=== PATIENT | female | born 1980 | race Caucasian/White ===

== ENCOUNTER 2017-01-23 16:56 | Emergency (ER) | payer BC ==
[2017-01-23] MEDS ORDERED: SODIUM CHLORIDE 0.9% 1,000 ML IV STA ×2 (17:34)
--- NOTE | 2017-01-23 17:58 | XR ---
EXAMINATION TYPE: XR chest 2V DATE OF EXAM: 01/23/2017 COMPARISON: 01/16/2014 HISTORY: Chest pain TECHNIQUE: Frontal and lateral views of the chest are obtained. FINDINGS: Heart and mediastinum are normal. Lungs are clear. Diaphragm is normal. Bony thorax appear s normal. IMPRESSION: Normal chest. No change.
[2017-01-23 18:01] LABS: Basophils # (A) 0.1 k/uL (0-0.2); Basophils % (A) 1 %; CH 27.5; CHCM 33.3; Eosinophils # (A) 0.2 k/uL (0-0.7); Eosinophils % (A) 2 %; HCT 42.8 % (34.0-46.0); HDW 2.71; HGB 14.2 gm/dL (11.4-16.0); Luc # (Auto) 0.31; Luc % (Auto) 3; Lymphocytes # (A) 2.5 k/uL (1.0-4.8); Lymphocytes % (A) 27 %; MCH 27.5 pg (25.0-35.0); MCHC 33.2 g/dL (31.0-37.0); MCV 82.7 fL (80.0-100.0); Mean Platelet Volume 6.5; Monocytes # (A) 0.6 k/uL (0-1.0); Monocytes % (A) 7 %; Neutrophils # (A) 5.8 k/uL (1.3-7.7); Neutrophils % (A) 61 %; RBC 5.18 m/uL (3.80-5.40); RDW 12.6 % (11.5-15.5); WBC 9.6 k/uL (3.8-10.6); WBC (Perox) 9.55
--- NOTE | 2017-01-23 18:03 | ED ---
Extremity Problem HPI - General Chief complaint: Extremity Problem,Nontraumatic Stated complaint: Knee Pain and SOB Time Seen by Provider: 01/23/17 17:21 Source: patient, RN notes reviewed, old records reviewed Mode of arrival: ambulatory Limitations: no limitations - History of Present Illness Initial comments: This is a 36-year-old female presents emergency Department chief complaint of 3 weeks of right posterior knee pain. She reports that she did break her toe approximately 2 months ago, and has been having limited movement. Patient states that today she has been having shortness of breath whenever she is playing with her 1-year-old child. She is not on control, nonsmoker. She reports no cough or hemoptysis. Patient denies any significant chest pain associated with this. Patient states that she has had no nausea or vomiting denies any abdominal pain. She reports that she whenever she lays backward she has worsening shortness of breath. - Related Data Home Medications Medication Instructions Recorded Confirmed Ibuprofen [Motrin] 400 mg PO Q6HR PRN 01/23/17 01/23/17 Allergies Allergy/AdvReac Type Severity Reaction Status Date / Time morphine Allergy Rash/Hives Verified 01/23/17 18:11 ketamine AdvReac Hallucinati Verified 01/23/17 18:11 ons ketorolac tromethamine AdvReac Nausea & Verified 01/23/17 18:11 [From Toradol] Vomiting Review of Systems ROS Statement: Those systems with pertinent positive or pertinent negative responses have been documented in the HPI. ROS Other: All systems not noted in ROS Statement are negative. Past Medical History Additional Past Medical History / Comment(s): bradycardia, Multiple Sclerosus, POTS. Obstetric history: She has had 3 vaginal deliveries and 2 spontaneous abortions, cholestasis of . O+, abs neg, Rub Imm, RPR NR, Hep B neg. History of Any Multi-Drug Resistant Organisms: None Reported Past Surgical History: Breast Surgery Additional Past Surgical History / Comment(s): D&C, breast implants Past Anesthesia/Blood Transfusion Reactions: No Reported Reaction Past Psychological History: No Psychological Hx Reported Smoking Status: Never smoker Past Alcohol Use History: None Reported Past Drug Use History: None Reported - Past Family History Father Family Medical History: Diabetes Mellitus, Hypertension Additional Family Medical History / Comment(s): had heart attack when 32 Mother Family Medical History: Hypertension General Exam - General Exam Comments Initial Comments: 36-year-old female. Patient appears to be somewhat short of breath. No acute distress. Limitations: no limitations General appearance: alert, in no apparent distress Head exam: Present: atraumatic, normocephalic, normal inspection Eye exam: Present: normal appearance, PERRL, EOMI. Absent: scleral icterus, conjunctival injection, periorbital swelling ENT exam: Present: normal exam, mucous membranes moist Neck exam: Present: normal inspection. Absent: tenderness, meningismus, lymphadenopathy Respiratory exam: Present: normal lung sounds bilaterally, other (Lungs are clear bilaterally, she does complain of some shortness of breath. Denies any chest pain. No tenderness to palpation of the chest wall.). Absent: respiratory distress, wheezes, rales, rhonchi, stridor Cardiovascular Exam: Present: regular rate, normal rhythm, normal heart sounds. Absent: systolic murmur, diastolic murmur, rubs, gallop, clicks GI/Abdominal exam: Present: soft, normal bowel sounds. Absent: distended, tenderness, guarding, rebound, rigid Extremities exam: Present: normal inspection, full ROM, normal capillary refill. Absent: tenderness, pedal edema, joint swelling, calf tenderness Right Upper Leg exam: Present: normal inspection, full ROM Knee exam: Present: full ROM (Patient has full range of motion of the knee, she does have a bruise over the posterior popliteal area.). Absent: normal inspection Lower Leg exam: Present: normal inspection, full ROM Ankle exam: Present: normal inspection, full ROM Foot/Toe exam: Present: normal inspection, full ROM Neurovascular tendon exam: Present: no vascular compromise Gait: observed and limited by pain Course Vital Signs 01/23/17 01/23/17 01/23/17 17:06 17:34 17:47 Temperature 98.9 F Pulse Rate 87 68 Respiratory 18 18 18 Rate Blood Pressure 153/97 127/82 O2 Sat by Pulse 96 99 Oximetry 01/23/17 01/23/17 18:34 20:48 Temperature 97.5 F L 98.0 F Pulse Rate 69 70 Respiratory 16 18 Rate Blood Pressure 135/86 110/72 O2 Sat by Pulse 99 97 Oximetry Medical Decision Making - Medical Decision Making 36-year-old feel presents emergency room chief complaint of shortness of breath for approximately one day. Worse with laying down or exertion. Patient also complains of some right posterior knee pain for the past 2 weeks. Ultrasound of the leg was negative for any DVT. Patient's vital signs are all stable, pulse ox is between 100% 98% on room air. Patient's labwork was reviewed and negative for any significant abnormalities. Negative cardiac enzymes. EKG was normal limits. Patient chest x-rays negative for any acute process. Patient continued to state she is short of breath, CT chest ordered, negative for PE or any other abnormalities. Patient was informed of allresults. She has no wheezing. Discussed at this time emergent reasons for sOB have been rulled out. Return parameters discussed and discussed close follow up with PCP. Discussed with Dr. Owens - Lab Data Result diagrams: 01/23/17 17:40 01/23/17 17:40 Lab Results 01/23/17 01/23/17 01/23/17 Range/Units 17:40 17:40 17:40 WBC 9.6 (3.8-10.6) k/uL RBC 5.18 (3.80-5.40) m/uL Hgb 14.2 (11.4-16.0) gm/dL Hct 42.8 (34.0-46.0) % MCV 82.7 (80.0-100.0) fL MCH 27.5 (25.0-35.0) pg MCHC 33.2 (31.0-37.0) g/dL RDW 12.6 (11.5-15.5) % Plt Count 508 H (150-450) k/uL Neutrophils % 61 % Lymphocytes % 27 % Monocytes % 7 % Eosinophils % 2 % Basophils % 1 % Neutrophils # 5.8 (1.3-7.7) k/uL Lymphocytes # 2.5 (1.0-4.8) k/uL Monocytes # 0.6 (0-1.0) k/uL Eosinophils # 0.2 (0-0.7) k/uL Basophils # 0.1 (0-0.2) k/uL PT (9.0-12.0) sec INR (<1.2) APTT (22.0-30.0) sec D-Dimer (<0.60) mg/L FEU Sodium 140 (137-145) mmol/L Potassium 4.6 (3.5-5.1) mmol/L Chloride 109 H (98-107) mmol/L Carbon Dioxide 21 L (22-30) mmol/L Anion Gap 10 mmol/L BUN 12 (7-17) mg/dL Creatinine 0.57 (0.52-1.04) mg/dL Est GFR (MDRD) Af Amer >60 (>60 ml/min/1.73 sqM) Est GFR (MDRD) Non-Af >60 (>60 ml/min/1.73 sqM) Glucose 100 H (74-99) mg/dL Calcium 9.8 (8.4-10.2) mg/dL Magnesium 2.2 (1.6-2.3) mg/dL Total Bilirubin 0.4 (0.2-1.3) mg/dL AST 21 (14-36) U/L ALT 30 (9-52) U/L Alkaline Phosphatase 101 (38-126) U/L Total Creatine Kinase 87 (30-135) U/L CK-MB (CK-2) 0.8 (0.0-2.4) ng/mL CK-MB (CK-2) Rel Index 0.9 Troponin I <0.012 (0.000-0.034) ng/mL Total Protein 7.6 (6.3-8.2) g/dL Albumin 4.6 (3.5-5.0) g/dL 01/23/17 Range/Units 17:40 WBC (3.8-10.6) k/uL RBC (3.80-5.40) m/uL Hgb (11.4-16.0) gm/dL Hct (34.0-46.0) % MCV (80.0-100.0) fL MCH (25.0-35.0) pg MCHC (31.0-37.0) g/dL RDW (11.5-15.5) % Plt Count (150-450) k/uL Neutrophils % % Lymphocytes % % Monocytes % % Eosinophils % % Basophils % % Neutrophils # (1.3-7.7) k/uL Lymphocytes # (1.0-4.8) k/uL Monocytes # (0-1.0) k/uL Eosinophils # (0-0.7) k/uL Basophils # (0-0.2) k/uL PT 10.3 (9.0-12.0) sec INR 1.0 (<1.2) APTT 25.3 (22.0-30.0) sec D-Dimer 0.22 (<0.60) mg/L FEU Sodium (137-145) mmol/L Potassium (3.5-5.1) mmol/L Chloride (98-107) mmol/L Carbon Dioxide (22-30) mmol/L Anion Gap mmol/L BUN (7-17) mg/dL Creatinine (0.52-1.04) mg/dL Est GFR (MDRD) Af Amer (>60 ml/min/1.73 sqM) Est GFR (MDRD) Non-Af (>60 ml/min/1.73 sqM) Glucose (74-99) mg/dL Calcium (8.4-10.2) mg/dL Magnesium (1.6-2.3) mg/dL Total Bilirubin (0.2-1.3) mg/dL AST (14-36) U/L ALT (9-52) U/L Alkaline Phosphatase (38-126) U/L Total Creatine Kinase (30-135) U/L CK-MB (CK-2) (0.0-2.4) ng/mL CK-MB (CK-2) Rel Index Troponin I (0.000-0.034) ng/mL Total Protein (6.3-8.2) g/dL Albumin (3.5-5.0) g/dL - Radiology Data Radiology results: report reviewed EKG shows normal sinus rhythm with sinus arrhythmia. Incomplete right branch block. Blood sugar at 62 bpm. W[place] interval 120 ms. QRS duration 94 months seconds. QT QTc is 434/440 ms. No evidence of this elevation or T-wave inversions. No ventricular arrhythmias. Disposition Clinical Impression: Dyspnea on exertion, Right knee injury Disposition: HOME SELF-CARE Condition: Good Instructions: Dyspnea (ED) Additional Instructions: Patient advised to follow-up with your primary care provider on Thursday. Patient needs to return if there is any worsening signs or symptoms occur. Patient advised to follow-up with primary care provider as well as client technologies specialist and regards to the knee pain and dyspnea. Referrals: Jodi Linton MD [Primary Care Provider] - 1-2 days Time of Disposition: 20:54
[2017-01-23 18:09] LABS: ALT 30 U/L (9-52); AST 21 U/L (14-36); Alkaline Phosphatase 101 U/L (38-126); Anion Gap 10 mmol/L; Blood Urea Nitrogen 12 mg/dL (7-17); Calcium 9.8 mg/dL (8.4-10.2); Carbon Dioxide 21 mmol/L (22-30); Chloride 109 mmol/L (98-107); Glucose 100 mg/dL (74-99); Magnesium 2.2 mg/dL (1.6-2.3); Non-African American GFR(MDRD) >60 (>60 ml/min/1.73 sqM); Potassium 4.6 mmol/L (3.5-5.1); Sodium 140 mmol/L (137-145); Total Bilirubin 0.4 mg/dL (0.2-1.3); Total Protein 7.6 g/dL (6.3-8.2)
[2017-01-23 18:16] LABS: Partial Thromboplastin Time 25.3 sec (22.0-30.0); Prothrombin Time 10.3 sec (9.0-12.0)
[2017-01-23 18:22] LABS: Creatine Kinase 87 U/L (30-135)
[2017-01-23 18:35] LABS: Creatine Kinase MB 0.8 ng/mL (0.0-2.4); Troponin I <0.012 ng/mL (0.000-0.034)
--- NOTE | 2017-01-23 18:50 | US ---
EXAMINATION TYPE: US venous doppler duplex LE RT DATE OF EXAM: 01/23/2017 5:34 PM COMPARISON: NONE CLINICAL HISTORY: Pain. right leg pain, no swelling, no h/o dvt, SIDE PERFORMED: right TECHNIQUE: The lower extremity deep venous system is examined utilizing real time linear array sonog kenn with graded compression, doppler sonography and color-flow sonography. VESSELS IMAGED: External Iliac Vein (EIV) Common Femoral Vein Deep Femoral Vein Greater Saphenous Vein * Femoral Vein Popliteal Vein Small Saphenous Vein * Proximal Calf Veins (* superficial vessels) Right Leg: Appears negative for DVT IMPRESSION: Normal exam. No evidence of deep venous thrombosis in the right leg.
[2017-01-23] MEDS ORDERED: RX INFO: IV CONTRAST WAS GIVEN 1 EACH MISC MISCELLANE PRN (19:26)
--- NOTE | 2017-01-23 19:42 | XR ---
EXAMINATION TYPE: XR knee complete RT DATE OF EXAM: 01/23/2017 COMPARISON: NONE HISTORY: Knee pain TECHNIQUE: 3 views FINDINGS: I see no fracture nor dislocation. Joint spaces are normal. There is no sign of joint effus ion. IMPRESSION: Negative right knee exam
--- NOTE | 2017-01-23 20:33 | CT ---
EXAMINATION TYPE: CT chest angio for PE DATE OF EXAM: 01/23/2017 COMPARISON: NONE HISTORY: Chest pain and shortness of breath today CT DLP: 640 mGycm Automated exposure control for dose reduction was used. CONTRAST: CT Chest for pulmonary embolism performed with with IV Contrast, patient injected with 100 mL of Omni paque 350. FINDINGS: There are 3-D post processed images. The lungs are clear of infiltrate. There is no evidence of a pul monary mass. There is mild subpleural reticular interstitial density in the posterior right lower lob e. There is no pleural effusion. There is no pericardial effusion. There is mild pectus excavatum chris st deformity. There are bilateral breast implants. There is no mediastinal adenopathy. There are no hilar masses. Thoracic aorta is normal size without evidence of aneurysm or dissection. I see no filling defects in the pulmonary arteries. The bony thorax appears intact. IMPRESSION: Negative exam. No evidence of pulmonary embolism. Minimal subpleural interstitial density in the righ t lower lobe of doubtful significance.
[2017-01-23 20:49] VITALS: BP 110/72; PULSE 70; RESP 18; TEMP 98
== END 2017-01-23 21:06 | disposition home or self-care (01) ==
LOC: EC 16:56
DX: S89.91XA Unspecified injury of right lower leg, initial encounter (principal); R06.02 Shortness of breath; Z88.5 Allergy status to narcotic agent
CPT/HCPCS: 36415; 93005; 85379; 80053; 82550; 82553; 83735; 84484; 85025; 85610; 85730; 71020; 73562; 93971; 71275; 99284; 96360; 96361 ×2; Q9967

== ENCOUNTER 2017-05-04 14:49 | Emergency (ER) | payer OTHER ==
[2017-05-04] MEDS ORDERED: DIPH,PERTUS(ACELL)TETVAC-LF 0.5 ML VIAL IM ONE (16:18)
--- NOTE | 2017-05-04 16:36 | ED ---
Wound/Laceration HPI - General Chief Complaint: Wound/Laceration Stated Complaint: Finger Laceration Time Seen by Provider: 05/04/17 16:12 Source: patient Mode of arrival: ambulatory Limitations: no limitations - History of Present Illness Initial Comments: 37-year-old female patient presents to the emergency department today for evaluation of a laceration to her left fourth finger. Patient states that around noon today she was cutting some vegetables when she slipped and cut the end of her finger. The patient states that she did cleanse the wound and apply ointment however has had continued bleeding throughout the day so she presented here for further evaluation. She states her last tetanus vaccine was 8 years ago. She denies any history of bleeding or clotting disorders. She denies any difficulty with range of motion of the finger. Denies any numbness or tingling. Patient denies any headache, neck pain, back pain, chest pain, shortness of breath, dizziness, weakness, abdominal pain, nausea, vomiting, or difficulties with bowel movements or urination. - Related Data Previous Rx's Medication Instructions Recorded predniSONE 10 mg PO DAILY #74 tab 04/08/17 Baclofen [Lioresal] 10 mg PO QID #120 tab 04/10/17 Gabapentin [Neurontin] 300 mg PO TID #90 cap 04/10/17 Sennosides-Docusate Sodium 2 each PO DAILY tab 04/10/17 [Senokot-S] hydrOXYzine PAMOATE [Vistaril] 25 mg PO TID PRN #60 cap 04/10/17 oxyCODONE-APAP 10-325MG [Percocet 1 each PO Q6H PRN #60 tab 04/10/17 10-325 mg] traMADol HCL [Ultram] 50 mg PO Q6HR PRN #40 tab 04/10/17 Allergies Allergy/AdvReac Type Severity Reaction Status Date / Time morphine Allergy Rash/Hives Verified 05/04/17 15:17 ketamine AdvReac Hallucinati Verified 05/04/17 15:17 ons ketorolac tromethamine AdvReac Nausea & Verified 05/04/17 15:17 [From Toradol] Vomiting paper tape Allergy Rash/Hives Uncoded 05/04/17 15:17 Review of Systems ROS Statement: Those systems with pertinent positive or pertinent negative responses have been documented in the HPI. ROS Other: All systems not noted in ROS Statement are negative. Past Medical History Additional Past Medical History / Comment(s): bradycardia, Multiple Sclerosus,. Obstetric history: She has had 3 vaginal deliveries and 2 spontaneous abortions, cholestasis of . O+, abs neg, Rub Imm, RPR NR, Hep B neg. History of Any Multi-Drug Resistant Organisms: None Reported Past Surgical History: Breast Surgery Additional Past Surgical History / Comment(s): D&C, breast implants Past Anesthesia/Blood Transfusion Reactions: No Reported Reaction Past Psychological History: No Psychological Hx Reported Smoking Status: Never smoker Past Alcohol Use History: Occasional Past Drug Use History: None Reported - Past Family History Father Family Medical History: Diabetes Mellitus, Hypertension Additional Family Medical History / Comment(s): Father is alive at age 66 andhad heart attack when 32 tatus post CABG. Mother Family Medical History: Hypertension Additional Family Medical History / Comment(s): Mother is alive at age 62 with history of gallstones. Brother(s) Additional Family Medical History / Comment(s): Patient has 2 brothers and one sister. Her sister has chronic workup for meningitis-type symptoms. Siblings have not been diagnosed with MS. Patient has 2 children with primary immunodeficiency. General Exam Limitations: no limitations General appearance: alert, in no apparent distress, other (This is a well- developed, well-nourished adult female patient in no acute distress. Vital signs upon presentation are temperature 98.0F, pulse 71, respirations 16, blood pressure 128/74, pulse ox 98% on room air.) Eye exam: Present: normal appearance, PERRL, EOMI. Absent: scleral icterus, conjunctival injection, periorbital swelling ENT exam: Present: normal exam, normal oropharynx, mucous membranes moist Respiratory exam: Present: normal lung sounds bilaterally. Absent: respiratory distress, wheezes, rales, rhonchi, stridor Cardiovascular Exam: Present: regular rate, normal rhythm, normal heart sounds. Absent: systolic murmur, diastolic murmur, rubs, gallop, clicks Extremities exam: Present: normal inspection, full ROM, normal capillary refill , other (There is a 2 cm flap-like laceration noted to the distal tip of the left fourth digit. Bleeding is currently controlled. Full range of motion present. Skin is otherwise pink, warm, and dry. Cap refills less than 3 seconds. Radial pulses 2+ and equal bilaterally.). Absent: tenderness, pedal edema, joint swelling, calf tenderness Neurological exam: Present: alert, oriented X3, CN II-XII intact Psychiatric exam: Present: normal affect, normal mood Skin exam: Present: warm, dry, intact, normal color. Absent: rash Course Vital Signs 05/04/17 15:14 Temperature 98 F Pulse Rate 71 Respiratory 16 Rate Blood Pressure 128/74 O2 Sat by Pulse 98 Oximetry Procedures - Laceration Laceration #1 Consent Obtained: verbal consent Time Out Performed: Yes Indication: laceration Site: hand (Left fourth digit) Size (cm): 2 Description: flap Depth: simple, single layer Anesthetic Used: lidocaine 1% Anesthesia Technique: local infiltration Amount (mls): 2 Pre-repair: irrigated extensively Type of Sutures: nylon Size of Sutures: 5-0 Number of Sutures: 3 Technique: simple, interrupted Patient Tolerated Procedure: well, no complications Medical Decision Making - Medical Decision Making 37-year-old female patient presented to the emergency department today for evaluation of a laceration to left fourth digit. Physical examination did reveal 2 cm flap-like laceration to the left fourth digit. Neurovascular status was intact. Did repair the laceration as documented. She is instructed regarding wound care and suture removal. She is instructed to follow-up with her primary care physician for recheck in 1-2 days for a is instructed to return here immediately for any new, worsening, or concerning symptoms. She verbalizes understanding and agrees with this plan. Disposition Clinical Impression: Finger laceration Disposition: HOME SELF-CARE Condition: Good Instructions: Finger Laceration (ED) Additional Instructions: Keep wound clean and dry. Cleanse twice daily with warm water and antibacterial soap. Return in 7 days to have his stitches removed. Monitor for signs or symptoms of infection including but not limited to swelling, redness, drainage of pus, fever, or chills. Follow-up with your primary care physician for recheck in 1-2 days. Return here immediately for any new, worsening, or concerning symptoms. Referrals: Jodi Linton MD [Primary Care Provider] - 1-2 days Time of Disposition: 16:36
[2017-05-04 16:50] VITALS: BP 118/72; PULSE 67; RESP 17; TEMP 98.1
== END 2017-05-04 16:48 | disposition home or self-care (01) ==
LOC: EC 14:49
DX: S61.215A Laceration without foreign body of left ring finger without damage to nail, initial encounter (principal); Z88.4 Allergy status to anesthetic agent; Z88.5 Allergy status to narcotic agent; Z88.6 Allergy status to analgesic agent; Z91.048 Other nonmedicinal substance allergy status; Z23 Encounter for immunization; W26.9XXA Contact with unspecified sharp object(s), initial encounter; W01.0XXA Fall on same level from slipping, tripping and stumbling without subsequent striking against object, initial encounter; Y93.G1 Activity, food preparation and clean up
CPT/HCPCS: 12001; 90471; 90715; 99282

== ENCOUNTER → 2017-07-06 | Outpatient (CLI) | payer OTHER | END | disposition home or self-care (01) | LOC: LABWHC1 16:16 | PROVIDERS: ATTEND Orthopaedic Surgery | DX: E55.9 Vitamin D deficiency, unspecified (principal) | CPT/HCPCS: 36415; 82306 ==

== ENCOUNTER → 2017-11-17 | Day surgery (SDC) | payer OTHER ==
[2017-11-17 13:44] VITALS: RESP 16; BMI 23.5
[2017-11-17 14:54] VITALS: BP 120/76; PULSE 54; TEMP 98.4
--- NOTE | 2017-11-17 15:50 | USB ---
EXAMINATION TYPE: US breast needle core RT DATE OF EXAM: 11/17/2017 HISTORY: right breast mass. FINDINGS: Maximal barrier technique was utilized. The skin overlying a suitable path to the patient' s mass was localized with ultrasound and the overlying skin prepped and draped. Ultrasound was utili zed with sterile technique. Lidocaine was used for local anesthesia. A skin garry was made with a sc alpel. An 18-gauge needle was advanced under direct ultrasound guidance and core specimen obtained o f the mass. A second pass was made and submitted on wet Telfa. Specimen submitted in formalin to [facility] thology. Following the procedure, hemostasis achieved and the patient is discharged in stable condit ion without complication. IMPRESSION:STATUS POST ULTRASOUND GUIDED CORE BIOPSY OF right breast MASS, PATHOLOGY IS PENDING. THI S PROCEDURE IS PERFORMED BY THE UNDERSIGNED.
== END ==
LOC: RADUSWWP 13:03
PROVIDERS: ATTEND Family Medicine
DX: R92.8 Other abnormal and inconclusive findings on diagnostic imaging of breast (principal); Z88.6 Allergy status to analgesic agent; Z88.4 Allergy status to anesthetic agent; Z88.5 Allergy status to narcotic agent; Z91.09 Other allergy status, other than to drugs and biological substances
CPT/HCPCS: 19083; J2001; 88305

== ENCOUNTER → 2018-08-04 | Outpatient (CLI) | payer OTHER ==
[2018-08-04 14:43] LABS: Basophils # (A) 0.1 k/uL (0-0.2); Basophils % (A) 1 %; Eosinophils # (A) 0.2 k/uL (0-0.7); Eosinophils % (A) 3 %; HCT 41.2 % (34.0-46.0); HGB 12.8 gm/dL (11.4-16.0); Hypochromasia Moderate; Lymphocytes # (A) 2.4 k/uL (1.0-4.8); Lymphocytes % (A) 36 %; MCH 25.6 pg (25.0-35.0); MCHC 31.1 g/dL (31.0-37.0); MCV 82.4 fL (80.0-100.0); Monocytes # (A) 0.5 k/uL (0-1.0); Monocytes % (A) 7 %; Neutrophils # (A) 3.3 k/uL (1.3-7.7); Neutrophils % (A) 50 %; Platelet Count 485 k/uL (150-450); RDW 14.6 % (11.5-15.5); WBC 6.6 k/uL (3.8-10.6)
== END | disposition home or self-care (01) ==
LOC: LABPAT 13:59
PROVIDERS: ATTEND Obstetrics & Gynecology
DX: Z01.812 Encounter for preprocedural laboratory examination (principal); N92.0 Excessive and frequent menstruation with regular cycle
CPT/HCPCS: 36415; 85025

== ENCOUNTER 2018-08-23 06:31 | Day surgery (SDC) | payer OTHER ==
[2018-08-18 14:24] VITALS: BMI 25.0
--- NOTE | 2018-08-20 10:26 | P.HPOB ---
History of Present Illness H&P Date: 08/20/18 Chief Complaint: Menorrhagia and desire for permanent sterility This is a 38 year old 6 para 40-4 woman with heavy menstrual periods with ParaGard IUD in place. Her periods last longer than 7 days and are quite heavy. She desires permanent contraception and is requesting removal of the ParaGard IUD and bilateral tubal ligation. She also is planning to undergo hysteroscopy with NovaSure endometrial ablation to address her menorrhagia. Pelvic ultrasound confirms appropriate placement of ParaGard intrauterine device in the uterus measuring 5.6 x 5.4 x 8.9 cm. Normal bilateral adnexa. Review of Systems Constitutional: Denies chills, Denies fever Cardiovascular: Denies chest pain, Denies shortness of breath Respiratory: Denies cough Gastrointestinal: Denies abdominal pain, Denies BRBPR, Denies nausea, Denies vomiting Genitourinary: Reports menorrhagia Menstruation: Reports menses 8 or > days Integumentary: Denies rash Neurological: Denies headaches Psychiatric: Denies anxiety, Denies depression Hematologic/Lymphatic: Denies easy bleeding, Denies easy bruising Past Medical History Past Medical History: Musculoskeletal Disorder Additional Past Medical History / Comment(s): Bradycardia, Multiple Sclerosis. History of Any Multi-Drug Resistant Organisms: None Reported Past Surgical History: Breast Surgery Additional Past Surgical History / Comment(s): D&C, breast implants. Past Anesthesia/Blood Transfusion Reactions: No Reported Reaction Past Psychological History: Anxiety Smoking Status: Former smoker Past Alcohol Use History: Occasional Additional Past Alcohol Use History / Comment(s): Quit smoking 15 yrs ago. Past Drug Use History: None Reported - Past Family History Father Family Medical History: Diabetes Mellitus, Hypertension Additional Family Medical History / Comment(s): Father is alive at age 66 and had heart attack when 32 status post CABG. Mother Family Medical History: Hypertension Additional Family Medical History / Comment(s): Mother is alive at age 62 with history of gallstones. Brother(s) Family Medical History: No Reported History Additional Family Medical History / Comment(s): Patient has 2 brothers and one sister. Her sister has chronic workup for meningitis-type symptoms. Siblings have not been diagnosed with MS. Patient has 2 children with primary immunodeficiency. Medications and Allergies Home Medications and Allergies Comment(s): ParaGard IUD in place Home Medications Medication Instructions Recorded Confirmed Type Baclofen [Lioresal] 20 mg PO BID 08/18/18 08/18/18 History Vitamin D 25,000 units PO PABLO 08/18/18 08/18/18 History Allergies Allergy/AdvReac Type Severity Reaction Status Date / Time morphine Allergy Rash/Hives Verified 08/18/18 14:11 ketamine AdvReac Hallucinati Verified 08/18/18 14:11 ons ketorolac tromethamine AdvReac Nausea & Verified 08/18/18 14:11 [From Toradol] Vomiting paper tape Allergy Mild Rash/Hives Uncoded 08/18/18 14:11 Exam This is a pleasant female in no obvious distress, appears her stated age. HEENT exam is unremarkable with no palpable lymphadenopathy or thyromegaly. The lungs are clear to auscultation bilaterally and the heart is a regular rate and rhythm. The abdomen is soft and nontender with no rebound, no guarding and no flank pain. On pelvic examination shows normal female external genitalia without lesions or irritation. On speculum examination cervix appears normal with visible IUD strings. On bimanual the uterus feels small freely mobile and in the midline with no palpable adnexal abdomen out East. Neurologically the patient is grossly intact and her mood and affect are appropriate. Assessment and Plan (1) Family planning Status: Acute Code(s): Z30.09 - ENCOUNTER FOR OT GENERAL CNSL AND ADVICE ON CONTRACEPTION SNOMED Code(s): 417364032 (2) Menorrhagia Status: Acute Code(s): N92.0 - EXCESSIVE AND FREQUENT MENSTRUATION WITH REGULAR CYCLE SNOMED Code(s): 339759593 (3) IUD (intrauterine device) in place Status: Acute Code(s): Z97.5 - PRESENCE OF (INTRAUTERINE) CONTRACEPTIVE DEVICE SNOMED Code(s): 815245757 Plan: This is a 38-year-old 6 para 40-4 woman who has menorrhagia with a ParaGard IUD in placed. She and her desire no further pregnancies on and her requesting bilateral tubal ligation as she is not tolerating her IUD at this time. She has menorrhagia. She was therefore scheduled to undergo removal of primary ParaGard IUD, laparoscopic bilateral tubal ligation with Filshie clips, diagnostic hysteroscopy and NovaSure endometrial ablation. The risks, benefits and alternatives to these procedures have been reviewed with the patient. She understands the risks include bleeding, laparotomy, infection, damage to bowel, bladder, ureters and other pelvic and intra-abdominal structures, anesthesia complications, tubal ligation failure, ectopic and ongoing menorrhagia. The patient since he's risks and agrees to proceed. She is scheduled for these procedures on 08/23/2018.
[~2018-08-23 06:31] MED LIST: DEXAMETHASONE SOD PHOSPHATE 10 MG/ML 1 ML VIAL IV ONE; LIDOCAINE 1% 20 ML VIAL (10MG/ML) FOR IV START INTRADERMA PRN; MIDAZOLAM 2 MG/2 ML VIAL IV PRN; ONDANSETRON 4 MG/2 ML VIAL IVP ONE; Pre Op ABX Message 1 EACH MISC MISCELLANE ONE; fentaNYL (PF) 50 MCG/ML 2 ML AMP IV PRN
[2018-08-23] MEDS: LACTATED RINGERS 1,000 ML IV SCH ×2 (07:00→10:18)
[2018-08-23] MEDS ORDERED: GLYCOPYRROLATE 0.2 MG/ML 2 ML VIAL ONE (07:24)
[2018-08-23] MEDS ORDERED: HYDROmorphone (PF) 1 MG/ML ONE (07:24)
[2018-08-23] MEDS ORDERED: MIDAZOLAM 2 MG/2 ML VIAL ONE (07:24)
[2018-08-23] MEDS ORDERED: PROPOFOL 10 MG/ML 20 ML VIAL IV ONE (07:24)
[2018-08-23] MEDS ORDERED: LIDOCAINE 1% INJ 10MG/ML (20 ML MDV) ONE (07:24)
[2018-08-23] MEDS ORDERED: KETOROLAC 30 MG/ML 1 ML VIAL ONE (07:24)
[2018-08-23] MEDS ORDERED: fentaNYL (PF) 50 MCG/ML 2 ML AMP ONE (07:24)
[2018-08-23] MEDS ORDERED: SUCCINYLCHOLINE CHLORIDE 100 MG/5 ML SYR IV ONE (07:24)
[2018-08-23] MEDS ORDERED: BUPIVACAINE (PF) 0.5% 30 ML VIAL SQ ONE (07:53)
--- NOTE | 2018-08-23 08:30 | P.OP ---
Date of Procedure: 08/23/18 Preoperative Diagnosis: Menorrhagia Desires surgical sterility Postoperative Diagnosis: Same Procedure(s) Performed: Removal of ParaGard IUD Laparoscopic bilateral tubal occlusion with Filshie clips Diagnostic hysteroscopy with NovaSure endometrial ablation Anesthesia: ANGELA Surgeon: Sonal Owen Estimated Blood Loss (ml): 10 IV fluids (ml): 600 Urine output (ml): 25 Pathology: none sent Condition: stable Disposition: PACU Operative Findings: Multiparous and patulous cervix. Normal endometrial cavity without gross lesions, fluffy endometrium. Grossly normal pelvic anatomy on laparoscopy with normal-appearing uterus, bilateral fallopian tubes and ovaries. Description of Procedure: After the patient was met in the preoperative holding area and all questions were answered, she was taken to the operating room anesthetic was administered without incident. Appropriate timeout procedure was undertaken. Patient was positioned, prepped and draped in the dorsal lithotomy position. Bladder was drained for approximately 25 mL of clear urine. Speculum was placed in the vagina and cervix was grasped anteriorly with a single-tooth tenaculum. ParaGard IUD strings were visualized. The strings were grasped with a ring forcep and the IUD was removed intact without difficulty. [facility] uterine manipulator was placed. Attention was then turned to the abdomen. Gloves were changed. The patient was placed in low lithotomy. The abdominal wall was grasped and elevated. A 5 mm skin incision at the umbilicus was made with a needle was inserted without difficulty. Saline drop test indicated intraperitoneal placement. Initial filling pressure with CO2 gas was 0 mm. The abdomen was then insufflated to a total filling pressure of 15 mm with CO2 gas. The uterus optical trocar was then utilized to introduce the 5 mm laparoscope. The scope was introduced and intraperitoneal placement was confirmed. The patient was placed in Trendelenburg. Under direct visualization a suprapubic 7 mm port was placed using a blade less trocar. The uterus was then elevated out of the pelvis and the position of both the right and left fallopian tubes were confirmed. The Filshie clip groover and turner was introduced and the right fallopian tube was identified visually and carried out to the fimbriated end. The clip was then applied completely transecting the mid inferior portion of the tube. Similarly the left fallopian tube was visually carried out to the fimbriated end and an additional suture was placed across left fallopian tubes completely transecting the mid ampullary portion. Instruments were then removed from the abdomen and the abdomen was desufflated of CO2 gas. Attention was then turned to the hysteroscopic portion of the procedure. The uterus had been previously sounded to 9 cm. The cervix is noted to be already quite patulous and did not require further dilation to allow for passage of the diagnostic hysteroscope. The hysteroscope was then introduced and a fluffy endometrium was appreciated. No gross intracavitary lesions. Hysteroscope was removed and the NovaSure endometrial excision device was inserted. There is a cavity length of 5 and a width of 4.6 cm. Cavity assessment test was passed after addressing the patulous cervix with Allis clamps to create a tight seal. The device was then enabled for a treatment cycle of 91 seconds at a power of 127 W. Following cessation of the treatment device the hysteroscope was reintroduced and complete desiccation of the endometrium was noted. Instruments removed from the vagina. Gloves were changed and attention was returned to the abdomen where the trochars were removed and skin was closed using 4-0 Vicryl in a subcu cutaneous fashion. Dressings were applied. All counts reported to me as correct by the operating room staff. The patient was awoken from anesthetic and was transferred to recovery in stable condition.
[2018-08-23 08:43] VITALS: TEMP 97.7
[2018-08-23] MEDS: HYDROmorphone 1 MG/ML 1 ML SYRINGE IVP ONE ×4 (08:47→09:23)
[2018-08-23 08:51] VITALS: RESP 16
[2018-08-23] MEDS: MEPERIDINE 50 MG/ML SYRINGE IVP ONE ×2 (08:59→09:12)
[2018-08-23 09:50] VITALS: BP 121/72; PULSE 81
[2018-08-23] MEDS ORDERED: IBUPROFEN 200 MG TAB PO ONE (10:16)
== END 2018-08-23 11:24 | disposition home or self-care (01) ==
LOC: OR 06:31
PROVIDERS: ATTEND Obstetrics & Gynecology
DX: Z30.2 Encounter for sterilization (principal); Z30.432 Encounter for removal of intrauterine contraceptive device; N92.0 Excessive and frequent menstruation with regular cycle; G35 Multiple sclerosis; F41.9 Anxiety disorder, unspecified; Z98.82 Breast implant status; Z79.899 Other long term (current) drug therapy; Z88.6 Allergy status to analgesic agent; Z88.4 Allergy status to anesthetic agent; Z88.5 Allergy status to narcotic agent; Z91.048 Other nonmedicinal substance allergy status; Z87.891 Personal history of nicotine dependence; Z83.3 Family history of diabetes mellitus; Z82.49 Family history of ischemic heart disease and other diseases of the circulatory system; Z83.79 Family history of other diseases of the digestive system; Z83.2 Family history of diseases of the blood and blood-forming organs and certain disorders involving the immune mechanism
CPT/HCPCS: 81025; 58671; 58563; 58301; J2250; J1100; J2175; J2405; J2001; J3010; J1885; J1170; J0330; J2704

== ENCOUNTER → 2018-09-20 | Outpatient (CLI) | payer OTHER ==
--- NOTE | 2018-09-20 13:35 | XR ---
EXAMINATION TYPE: XR hand limited RT DATE OF EXAM: 09/20/2018 CLINICAL HISTORY: pain TECHNIQUE: Frontal, lateral images of the right hand are obtained. COMPARISON: None. FINDINGS: There is no acute fracture/dislocation evident. The joint spaces appear within normal limi ts. The overlying soft tissue appears unremarkable. IMPRESSION: There is no acute fracture or dislocation ICD 10 NO FRACTURE, INITIAL EVALUATION
--- NOTE | 2018-09-20 15:26 | XR ---
EXAMINATION TYPE: XR wrist limited LT DATE OF EXAM: 09/20/2018 CLINICAL HISTORY: pain TECHNIQUE: Frontal, lateral images of the left wrist are obtained. COMPARISON: None. FINDINGS: There is no acute fracture/dislocation evident. The joint spaces appear within normal sykes its. The overlying soft tissue appears unremarkable. IMPRESSION: There is no acute fracture or dislocation seen. ICD 10 NO FRACTURE, INITIAL EVALUATION
== END | disposition home or self-care (01) ==
LOC: RADXRMAIN 13:08
PROVIDERS: ATTEND Family Medicine
DX: M25.532 Pain in left wrist (principal); M79.641 Pain in right hand

== ENCOUNTER 2019-02-10 13:23 | Emergency (ER) | payer OTHER ==
[2019-02-10 13:39] VITALS: BP 148/90; PULSE 70; RESP 20; TEMP 98
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
== END 2019-02-10 15:44 | disposition home or self-care (01) ==
LOC: EC 13:23
DX: T75.89XA Other specified effects of external causes, initial encounter (principal); H57.89 Other specified disorders of eye and adnexa; G35 Multiple sclerosis; Z79.899 Other long term (current) drug therapy; Z88.5 Allergy status to narcotic agent; Z88.4 Allergy status to anesthetic agent; Z88.6 Allergy status to analgesic agent; Z91.048 Other nonmedicinal substance allergy status
CPT/HCPCS: 82375; 99283

== ENCOUNTER → 2019-03-07 | Outpatient (CLI) | payer OTHER ==
[2019-03-07 17:20] LABS: Basophils % (A) 1 %; Eosinophils # (A) 0.1 k/uL (0-0.7); Eosinophils % (A) 3 %; HGB 14.4 gm/dL (11.4-16.0); Lymphocytes # (A) 0.6 k/uL (1.0-4.8); Lymphocytes % (A) 12 %; MCH 28.4 pg (25.0-35.0); MCHC 31.9 g/dL (31.0-37.0); MCV 88.9 fL (80.0-100.0); Mean Platelet Volume 7.2; Monocytes # (A) 0.6 k/uL (0-1.0); Monocytes % (A) 12 %; Neutrophils # (A) 3.6 k/uL (1.3-7.7); Neutrophils % (A) 68 %; Platelet Count 418 k/uL (150-450); RBC 5.06 m/uL (3.80-5.40); RDW 13.8 % (11.5-15.5); WBC 5.2 k/uL (3.8-10.6)
[2019-03-08 02:27] LABS: Albumin 4.5 g/dL (3.80-4.90); Total Bilirubin 0.5 mg/dL (0.3-1.2)
== END | disposition home or self-care (01) ==
LOC: LABWHC1 16:00
PROVIDERS: ATTEND Psychiatry & Neurology Neurology
DX: G35 Multiple sclerosis (principal)
CPT/HCPCS: 36415; 82040; 82247; 84075; 84460; 85025

== ENCOUNTER → 2019-04-21 | Outpatient (CLI) | payer OTHER ==
[2019-04-22 00:51] LABS: African American GFR (CKD) 125.6 (60.0-200.0); Anion Gap 7.9 mmol/L (4.00-12.00); BUN/Creat Ratio 15.71 Ratio (12.00-20.00); Calcium 9.6 mg/dL (8.7-10.3); Carbon Dioxide 28.1 mmol/L (21.6-31.8); Non-African American GFR(CKD) 108.4 (60.0-200.0); Potassium 4.5 mmol/L (3.5-5.5)
== END | disposition home or self-care (01) ==
LOC: LABWHC1 16:07
PROVIDERS: ATTEND Family Medicine
DX: M89.8X9 Other specified disorders of bone, unspecified site (principal); R53.81 Other malaise
CPT/HCPCS: 36415; 80048; 82306; 82550

== ENCOUNTER → 2019-04-26 | Outpatient (CLI) | payer OTHER | END | disposition home or self-care (01) | LOC: LABWHC1 15:59 | PROVIDERS: ATTEND Family Medicine | DX: R53.81 Other malaise (principal) | CPT/HCPCS: 36415; 82550 ==

== ENCOUNTER → 2019-09-13 | Outpatient (CLI) | payer OTHER ==
[2019-09-13 10:55] LABS: Basophils # (A) 0.1 k/uL (0-0.2); Basophils % (A) 1 %; Eosinophils # (A) 0.1 k/uL (0-0.7); Eosinophils % (A) 3 %; HCT 45.5 % (34.0-46.0); HGB 14.4 gm/dL (11.4-16.0); Lymphocytes # (A) 0.6 k/uL (1.0-4.8); Lymphocytes % (A) 12 %; MCH 29.2 pg (25.0-35.0); MCHC 31.6 g/dL (31.0-37.0); MCV 92.4 fL (80.0-100.0); Mean Platelet Volume 7.6; Monocytes # (A) 0.4 k/uL (0-1.0); Monocytes % (A) 9 %; Neutrophils # (A) 3.2 k/uL (1.3-7.7); Neutrophils % (A) 72 %; Platelet Count 423 k/uL (150-450); RBC 4.92 m/uL (3.80-5.40); RDW 12.3 % (11.5-15.5); WBC 4.5 k/uL (3.8-10.6)
[2019-09-13 16:42] LABS: ALT 22 U/L (8-44); AST 24 U/L (13-35); African American GFR (CKD) 125.6 (60.0-200.0); Albumin/Globulin Ratio 2.32 (1.60-3.17); Alkaline Phosphatase 67 U/L (41-126); Bilirubin, Conjugated <0.20 mg/dL (0.20-0.40); Globulin 1.9 g/dL (1.6-3.3); Non-African American GFR(CKD) 108.4 (60.0-200.0); Total Bilirubin 0.4 mg/dL (0.2-1.2); Total Protein 6.3 g/dL (6.2-8.2)
== END | disposition home or self-care (01) ==
LOC: LABWHC1 10:14
PROVIDERS: ATTEND Psychiatry & Neurology Neurology
DX: G35 Multiple sclerosis (principal)
CPT/HCPCS: 36415; 80076; 82565; 82784; 82785; 84520; 85025; 86355; 86357; 86359; 86360

== ENCOUNTER → 2019-11-11 | Outpatient (CLI) | payer OTHER ==
--- NOTE | 2019-11-11 18:42 | US ---
EXAMINATION TYPE: US venous doppler duplex LE LT DATE OF EXAM: 11/11/2019 5:38 PM COMPARISON: NONE CLINICAL HISTORY: I80. PAIN SIDE PERFORMED: Left TECHNIQUE: The lower extremity deep venous system is examined utilizing real time linear array sonog kenn with graded compression, doppler sonography and color-flow sonography. VESSELS IMAGED: External Iliac Vein (EIV) Common Femoral Vein Deep Femoral Vein Greater Saphenous Vein * Femoral Vein Popliteal Vein Small Saphenous Vein * Proximal Calf Veins (* superficial vessels) Left Leg: Negative for DVT Impression No evidence of left leg deep vein thrombosis. IMPRESSION: No deep vein thrombosis in the left leg.
== END | disposition home or self-care (01) ==
LOC: RADUSMAIN 17:20
PROVIDERS: ATTEND Orthopaedic Surgery Sports Medicine
DX: M25.572 Pain in left ankle and joints of left foot (principal); R22.42 Localized swelling, mass and lump, left lower limb; I80.9 Phlebitis and thrombophlebitis of unspecified site

== ENCOUNTER → 2019-12-20 | Outpatient (CLI) | payer OTHER ==
[2019-12-20 17:11] LABS: HCT 44.5 % (34.0-46.0); HGB 14.8 gm/dL (11.4-16.0); MCH 31.4 pg (25.0-35.0); MCHC 33.2 g/dL (31.0-37.0); MCV 94.7 fL (80.0-100.0); Mean Platelet Volume 7.2; Platelet Count 370 k/uL (150-450); RDW 12.2 % (11.5-15.5)
[2019-12-21 00:16] LABS: Erythrocyte Sedimentation Rate 4 mm/Hr (0-20)
[2019-12-21 04:27] LABS: Streptolysin O Ab(ASO) 131 IU/mL (0-200)
[2019-12-21 05:25] LABS: C Reactive Protein <0.4 mg/dL (0.0-0.8); Rheumatoid Factor, Qnt 7 IU/mL (0-15); Uric Acid 3.6 mg/dL (2.9-7.7)
[2019-12-21 14:39] LABS: HLA B27 NEGATIVE
== END | disposition home or self-care (01) ==
LOC: LABWHC1 15:38
PROVIDERS: ATTEND Physician Assistant
DX: M25.572 Pain in left ankle and joints of left foot (principal); R22.42 Localized swelling, mass and lump, left lower limb; M76.62 Achilles tendinitis, left leg; M25.50 Pain in unspecified joint
CPT/HCPCS: 36415; 84443; 84550; 85027; 85652; 86038; 86060; 86140; 86431; 86618; 86812

== ENCOUNTER → 2020-02-09 | Outpatient (CLI) | payer OTHER ==
[2020-02-09 14:30] LABS: Basophils % (A) 1 %; Eosinophils # (A) 0.1 k/uL (0-0.7); Eosinophils % (A) 2 %; HCT 45.5 % (34.0-46.0); HGB 14.7 gm/dL (11.4-16.0); Lymphocytes # (A) 0.5 k/uL (1.0-4.8); Lymphocytes % (A) 12 %; MCH 29.8 pg (25.0-35.0); MCHC 32.2 g/dL (31.0-37.0); MCV 92.3 fL (80.0-100.0); Monocytes # (A) 0.6 k/uL (0-1.0); Monocytes % (A) 13 %; Neutrophils % (A) 69 %; Platelet Count 381 k/uL (150-450); RBC 4.92 m/uL (3.80-5.40); RDW 12.7 % (11.5-15.5); WBC 4.4 k/uL (3.8-10.6)
[2020-02-09 20:03] LABS: ALT 71 U/L (8-44); AST 36 U/L (13-35); Albumin/Globulin Ratio 2.42 (1.60-3.17); Alkaline Phosphatase 88 U/L (41-126); Bilirubin, Conjugated <0.20 mg/dL (0.20-0.40); Globulin 1.9 g/dL (1.6-3.3); Total Bilirubin 0.5 mg/dL (0.2-1.2); Total Protein 6.5 g/dL (6.2-8.2)
[2020-02-10 14:40] LABS: T4/T8 Ratio (CD4:CD8) 0.2 (1.0-3.7)
== END | disposition home or self-care (01) ==
LOC: LABWHC1 13:18
PROVIDERS: ATTEND Psychiatry & Neurology Neurology
DX: G35 Multiple sclerosis (principal)
CPT/HCPCS: 36415; 80076; 85025; 86355; 86357; 86359; 86360

== ENCOUNTER → 2020-05-23 | Outpatient (CLI) | payer OTHER ==
[2020-05-23 19:47] LABS: Basophils # (A) 0.03 X 10*3/uL (0.00-0.10); Eosinophils # (A) 0.09 X 10*3/uL (0.04-0.35); HCT 42.1 % (37.2-46.3); HGB 13.7 g/dL (12.0-15.0); Lymphocytes # (A) 0.33 X 10*3/uL (0.90-5.00); MCHC 32.5 g/dL (32.0-37.0); MCV 92.3 fL (80.0-97.0); Monocytes # (A) 0.53 X 10*3/uL (0.20-1.00); Monocytes % (A) 17.7 %; Platelet Count 406 X 10*3/uL (140-440); RBC 4.56 X 10*6/uL (4.10-5.20); RDW 12.8 % (11.5-14.5); WBC 2.99 X 10*3/uL (4.50-10.00)
[2020-05-24 05:06] LABS: Albumin 4.5 g/dL (3.80-4.90)
[2020-05-24 15:08] LABS: T4/T8 Ratio (CD4:CD8) 0.4 (1.0-3.7)
== END | disposition home or self-care (01) ==
LOC: LABWHC1 12:00
PROVIDERS: ATTEND Psychiatry & Neurology Neurology
DX: G35 Multiple sclerosis (principal); Z88.5 Allergy status to narcotic agent
CPT/HCPCS: 36415; 82040; 84450; 84460; 85025; 86355; 86357; 86359; 86360

== ENCOUNTER → 2020-06-28 | Outpatient (CLI) | payer OTHER ==
[2020-06-28 19:23] LABS: Basophils # (A) 0.03 X 10*3/uL (0.00-0.10); Basophils % (A) 0.8 %; Eosinophils # (A) 0.05 X 10*3/uL (0.04-0.35); Eosinophils % (A) 1.3 %; HCT 46.3 % (37.2-46.3); HGB 14.6 g/dL (12.0-15.0); Lymphocytes # (A) 0.48 X 10*3/uL (0.90-5.00); Lymphocytes % (A) 12.2 %; MCH 29.5 pg (27.0-32.0); MCHC 31.5 g/dL (32.0-37.0); MCV 93.5 fL (80.0-97.0); Monocytes # (A) 0.78 X 10*3/uL (0.20-1.00); Monocytes % (A) 19.8 %; Neutrophils # (A) 2.58 X 10*3/uL (1.80-7.70); Neutrophils % (A) 65.6 %; Platelet Count 383 X 10*3/uL (140-440); RBC 4.95 X 10*6/uL (4.10-5.20); RDW 13.1 % (11.5-14.5); WBC 3.93 X 10*3/uL (4.50-10.00)
== END ==
LOC: LABWHC1 11:25
PROVIDERS: ATTEND Psychiatry & Neurology Neurology
DX: G35 Multiple sclerosis (principal); R42 Dizziness and giddiness
CPT/HCPCS: 36415; 85025

== ENCOUNTER 2020-08-30 16:59 | Emergency (ER) | payer OTHER ==
[2020-08-30] MEDS ORDERED: SODIUM CHLORIDE 0.9% 1,000 ML IV STA (17:23)
[2020-08-30] MEDS ORDERED: KETOROLAC 15 MG/ML 1 ML VIAL IVP STA (17:24)
--- NOTE | 2020-08-30 17:27 | ED ---
SOB HPI - General Chief Complaint: Shortness of Breath Stated Complaint: Covid+/SOB Time Seen by Provider: 08/30/20 17:07 Source: patient, RN notes reviewed Mode of arrival: ambulatory Limitations: no limitations - History of Present Illness Initial Comments: This is a 40-year-old female history of MS a history of recent diagnosis of Covid 19 this is now day 11 who presents with complaints of shortness of breath left-sided sharp chest pain is intermittent and gets as severe as 6 or 7/10 severity. She has a cough but cannot give any phlegm up. She does state that she was diagnosed with right-sided pneumonia from the COVID-19. She denies any current fevers chills or sweats she was recommended to come the hospital by her doctor. She is on immunosuppressants for her MS and thinks this may be why she had Covid in spite of immunization. No other complaints she states she has taken Toradol in the past but only oral and get her an upset stomach no prior history of IV Toradol problems MD Complaint: shortness of breath, chest pain - Related Data Home Medications Medication Instructions Recorded Confirmed Ascorbic Acid [Vitamin C] 500 mg PO DAILY 08/30/20 08/30/20 Ergocalciferol [Vitamin D2 (1250 1,250 mcg PO TH 08/30/20 08/30/20 Mcg = 84842 Iu)] Fingolimod HCl [Gilenya] 0.5 mg PO DAILY 08/30/20 08/30/20 Ibuprofen [Motrin Ib] 400 mg PO Q8H PRN 08/30/20 08/30/20 Zinc 50 mg PO DAILY 08/30/20 08/30/20 clonazePAM [KlonoPIN] 0.5 mg PO HS PRN 08/30/20 08/30/20 modafiniL [Provigil] 100 mg PO DAILY 08/30/20 08/30/20 Previous Rx's Medication Instructions Recorded predniSONE [Deltasone] 20 mg PO BID #10 tab 08/30/20 Allergies Allergy/AdvReac Type Severity Reaction Status Date / Time morphine Allergy Rash/Hives Verified 08/30/20 18:38 ketamine AdvReac Hallucinati Verified 08/30/20 18:38 ons ketorolac tromethamine AdvReac Nausea & Verified 08/30/20 18:38 [From Toradol] Vomiting paper tape Allergy Mild Rash/Hives Uncoded 08/30/20 17:03 Review of Systems ROS Statement: Those systems with pertinent positive or pertinent negative responses have been documented in the HPI. ROS Other: All systems not noted in ROS Statement are negative. Past Medical History Past Medical History: Musculoskeletal Disorder Additional Past Medical History / Comment(s): bradycardia, Multiple Sclerosis. Obstetric history: She has had 3 vaginal deliveries and 2 spontaneous abortions, cholestasis of . O+, abs neg, Rub Imm, RPR NR, Hep B neg. History of Any Multi-Drug Resistant Organisms: None Reported Past Surgical History: Tubal Ligation, Uterine Ablation Additional Past Surgical History / Comment(s): D&C, breast implants, Past Anesthesia/Blood Transfusion Reactions: No Reported Reaction Past Psychological History: Anxiety Smoking Status: Never smoker Past Alcohol Use History: Rare Past Drug Use History: None Reported - Past Family History Father Family Medical History: Diabetes Mellitus, Hypertension Additional Family Medical History / Comment(s): Father is alive at age 66 and had heart attack when 32 status post CABG. Mother Family Medical History: Hypertension Additional Family Medical History / Comment(s): Mother is alive at age 62 with history of gallstones. Brother(s) Family Medical History: No Reported History Additional Family Medical History / Comment(s): Patient has 2 brothers and one sister. Her sister has chronic workup for meningitis-type symptoms. Siblings have not been diagnosed with MS. Patient has 2 children with primary immunodeficiency. General Exam - General Exam Comments Initial Comments: This is a well-developed well-nourished awake alert oriented 3 female Limitations: no limitations General appearance: alert, in no apparent distress Head exam: Present: atraumatic, normocephalic, normal inspection Eye exam: Present: normal appearance, PERRL, EOMI. Absent: scleral icterus, conjunctival injection, periorbital swelling ENT exam: Present: normal exam, mucous membranes moist Neck exam: Present: normal inspection. Absent: tenderness, meningismus, lymphadenopathy Respiratory exam: Present: normal lung sounds bilaterally. Absent: respiratory distress, wheezes, rales, rhonchi, stridor, chest wall tenderness Cardiovascular Exam: Present: regular rate, normal rhythm, normal heart sounds. Absent: systolic murmur, diastolic murmur, rubs, gallop, clicks GI/Abdominal exam: Present: soft, normal bowel sounds. Absent: distended, tenderness, guarding, rebound, rigid Extremities exam: Present: normal inspection, full ROM, normal capillary refill. Absent: tenderness, pedal edema, joint swelling, calf tenderness Back exam: Present: normal inspection Neurological exam: Present: alert, oriented X3, CN II-XII intact Psychiatric exam: Present: normal affect, normal mood Skin exam: Present: warm, dry, intact, normal color. Absent: rash Course Vital Signs 08/30/20 08/30/20 08/30/20 17:01 17:21 19:14 Temperature 98.4 F Pulse Rate 75 65 50 L Respiratory 20 22 16 Rate Blood Pressure 161/90 140/103 156/93 O2 Sat by Pulse 100 100 100 Oximetry Medical Decision Making - Medical Decision Making I did discuss the findings with the patient she is feeling improved after the medication was rendered. I long discussion with her regarding her MS she feels as if the symptoms are not related to MS she was offered admission and would rather go home at this time. She'll be discharged home with a steroid to be given orally for pain. The presentation consistent with pleuritis. - Lab Data Result diagrams: 08/30/20 17:38 08/30/20 17:38 Lab Results 08/30/20 08/30/20 08/30/20 Range/Units 17:38 17:38 17:38 WBC 2.6 L (3.8-10.6) k/uL RBC 4.99 (3.80-5.40) m/uL Hgb 14.5 (11.4-16.0) gm/dL Hct 43.1 (34.0-46.0) % MCV 86.3 (80.0-100.0) fL MCH 29.1 (25.0-35.0) pg MCHC 33.7 (31.0-37.0) g/dL RDW 12.5 (11.5-15.5) % Plt Count 334 (150-450) k/uL MPV 7.2 Neutrophils % 69 % Lymphocytes % 11 % Monocytes % 16 % Eosinophils % 1 % Basophils % 1 % Neutrophils # 1.8 (1.3-7.7) k/uL Lymphocytes # 0.3 L (1.0-4.8) k/uL Monocytes # 0.4 (0-1.0) k/uL Eosinophils # 0.0 (0-0.7) k/uL Basophils # 0.0 (0-0.2) k/uL PT 10.5 (9.0-12.0) sec INR 1.0 (<1.2) APTT 24.6 (22.0-30.0) sec D-Dimer <0.17 (<0.60) mg/L FEU Sodium 139 (137-145) mmol/L Potassium 4.0 (3.5-5.1) mmol/L Chloride 106 (98-107) mmol/L Carbon Dioxide 26 (22-30) mmol/L Anion Gap 7 mmol/L BUN 16 (7-17) mg/dL Creatinine 0.47 L (0.52-1.04) mg/dL Est GFR (CKD-EPI)AfAm >90 (>60 ml/min/1.73 sqM) Est GFR (CKD-EPI)NonAf >90 (>60 ml/min/1.73 sqM) Glucose 89 (74-99) mg/dL Plasma Lactic Acid Yayo (0.7-2.0) mmol/L Calcium 9.7 (8.4-10.2) mg/dL Magnesium 2.1 (1.6-2.3) mg/dL Total Bilirubin 0.4 (0.2-1.3) mg/dL AST 35 (14-36) U/L ALT 44 H (4-34) U/L Alkaline Phosphatase 94 (38-126) U/L Creatine Kinase 51 (30-135) U/L Troponin I (0.000-0.034) ng/mL NT-Pro-B Natriuret Pep pg/mL Total Protein 6.6 (6.3-8.2) g/dL Albumin 4.2 (3.5-5.0) g/dL 08/30/20 08/30/20 08/30/20 Range/Units 17:38 17:38 17:38 WBC (3.8-10.6) k/uL RBC (3.80-5.40) m/uL Hgb (11.4-16.0) gm/dL Hct (34.0-46.0) % MCV (80.0-100.0) fL MCH (25.0-35.0) pg MCHC (31.0-37.0) g/dL RDW (11.5-15.5) % Plt Count (150-450) k/uL MPV Neutrophils % % Lymphocytes % % Monocytes % % Eosinophils % % Basophils % % Neutrophils # (1.3-7.7) k/uL Lymphocytes # (1.0-4.8) k/uL Monocytes # (0-1.0) k/uL Eosinophils # (0-0.7) k/uL Basophils # (0-0.2) k/uL PT (9.0-12.0) sec INR (<1.2) APTT (22.0-30.0) sec D-Dimer (<0.60) mg/L FEU Sodium (137-145) mmol/L Potassium (3.5-5.1) mmol/L Chloride (98-107) mmol/L Carbon Dioxide (22-30) mmol/L Anion Gap mmol/L BUN (7-17) mg/dL Creatinine (0.52-1.04) mg/dL Est GFR (CKD-EPI)AfAm (>60 ml/min/1.73 sqM) Est GFR (CKD-EPI)NonAf (>60 ml/min/1.73 sqM) Glucose (74-99) mg/dL Plasma Lactic Acid Yayo 0.6 L (0.7-2.0) mmol/L Calcium (8.4-10.2) mg/dL Magnesium (1.6-2.3) mg/dL Total Bilirubin (0.2-1.3) mg/dL AST (14-36) U/L ALT (4-34) U/L Alkaline Phosphatase (38-126) U/L Creatine Kinase (30-135) U/L Troponin I <0.012 (0.000-0.034) ng/mL NT-Pro-B Natriuret Pep 86 pg/mL Total Protein (6.3-8.2) g/dL Albumin (3.5-5.0) g/dL - EKG Data -: EKG Interpreted by Or EKG Comments: Sinus bradycardia rate 55 NV interval 148 QRS 100 QT/QTC 440/420 left exodeviation incomplete right bundle-branch block - Radiology Data Radiology results: report reviewed (She reviewed no acute findings.), image reviewed Disposition Clinical Impression: Atypical chest pain, Pleurisy Disposition: HOME SELF-CARE Condition: Good Instructions (If sedation given, give patient instructions): Pleurisy (ED) Prescriptions: predniSONE [Deltasone] 20 mg PO BID #10 tab Is patient prescribed a controlled substance at d/c from ED?: No Referrals: Kacie Matthews MD [Primary Care Provider] - 1-2 days
[2020-08-30 17:46] LABS: Basophils % (A) 1 %; Eosinophils % (A) 1 %; HCT 43.1 % (34.0-46.0); HGB 14.5 gm/dL (11.4-16.0); Lymphocytes # (A) 0.3 k/uL (1.0-4.8); Lymphocytes % (A) 11 %; MCH 29.1 pg (25.0-35.0); MCHC 33.7 g/dL (31.0-37.0); MCV 86.3 fL (80.0-100.0); Mean Platelet Volume 7.2; Monocytes # (A) 0.4 k/uL (0-1.0); Monocytes % (A) 16 %; Neutrophils # (A) 1.8 k/uL (1.3-7.7); Neutrophils % (A) 69 %; Platelet Count 334 k/uL (150-450); RBC 4.99 m/uL (3.80-5.40); RDW 12.5 % (11.5-15.5); WBC 2.6 k/uL (3.8-10.6)
[2020-08-30 17:54] LABS: ALT 44 U/L (4-34); AST 35 U/L (14-36); African American GFR (CKD) >90 (>60 ml/min/1.73 sqM); Albumin 4.2 g/dL (3.5-5.0); Alkaline Phosphatase 94 U/L (38-126); Anion Gap 7 mmol/L; Blood Urea Nitrogen 16 mg/dL (7-17); Calcium 9.7 mg/dL (8.4-10.2); Carbon Dioxide 26 mmol/L (22-30); Chloride 106 mmol/L (98-107); Creatine Kinase 51 U/L (30-135); Glucose 89 mg/dL (74-99); Magnesium 2.1 mg/dL (1.6-2.3); Non-African American GFR(CKD) >90 (>60 ml/min/1.73 sqM); Sodium 139 mmol/L (137-145); Total Bilirubin 0.4 mg/dL (0.2-1.3); Total Protein 6.6 g/dL (6.3-8.2)
[2020-08-30 17:59] LABS: D-Dimer <0.17 mg/L FEU (<0.60); Partial Thromboplastin Time 24.6 sec (22.0-30.0); Prothrombin Time 10.5 sec (9.0-12.0)
--- NOTE | 2020-08-30 18:20 | XR ---
EXAMINATION TYPE: XR chest 2V DATE OF EXAM: 08/30/2020 COMPARISON: 01/23/2017 HISTORY: Chest pain TECHNIQUE: Frontal and lateral views of the chest are obtained. FINDINGS: There is no focal air space opacity. No evidence for pneumothorax. No pleural effusion. The cardiac silhouette size is within normal limits. The osseous structures are grossly intact. IMPRESSION: 1. No acute cardiopulmonary process.
[2020-08-30] MEDS ORDERED: methylPREDNISolone SOD SUCCI 125 MG/2 ML VIAL IV STA (19:14)
[2020-08-30] MEDS ORDERED: fentaNYL (PF) 50 MCG/ML 2 ML AMP IV STA (19:15)
[2020-08-30 21:01] VITALS: BP 150/101; PULSE 58; RESP 18; TEMP 98
== END 2020-08-30 21:00 | disposition home or self-care (01) ==
LOC: EC 16:59
DX: R07.89 Other chest pain (principal); R09.1 Pleurisy
CPT/HCPCS: 36415; 93005; 85379; 83880; 80053; 82550; 83605; 83735; 84484; 85025; 85610; 85730; 71046; 99285; 96374; 96375 ×2; 96361 ×3; J2930; J3010; J1885

== ENCOUNTER → 2020-12-13 | Outpatient (CLI) | payer OTHER ==
[2020-12-13 23:53] LABS: Basophils # (A) 0.05 X 10*3/uL (0.00-0.10); Basophils % (A) 0.8 %; Eosinophils # (A) 0.07 X 10*3/uL (0.04-0.35); Eosinophils % (A) 1.2 %; HCT 43.1 % (37.2-46.3); HGB 13.9 g/dL (12.0-15.0); Lymphocytes # (A) 0.54 X 10*3/uL (0.90-5.00); Lymphocytes % (A) 9.1 %; MCH 29.4 pg (27.0-32.0); MCHC 32.3 g/dL (32.0-37.0); MCV 91.3 fL (80.0-97.0); Mean Platelet Volume 9.7 fL (9.5-12.2); Monocytes # (A) 0.76 X 10*3/uL (0.20-1.00); Monocytes % (A) 12.8 %; Neutrophils # (A) 4.49 X 10*3/uL (1.80-7.70); Neutrophils % (A) 75.8 %; Platelet Count 429 X 10*3/uL (140-440); RBC 4.72 X 10*6/uL (4.10-5.20); RDW 12.4 % (11.5-14.5); WBC 5.93 X 10*3/uL (4.50-10.00)
[2020-12-14 05:25] LABS: Albumin 4.6 g/dL (3.8-4.9)
[2020-12-14 12:04] LABS: T4/T8 Ratio (CD4:CD8) 0.5 (1.0-3.7)
== END | disposition home or self-care (01) ==
LOC: LABWHC1 16:12
PROVIDERS: ATTEND Psychiatry & Neurology Neurology
DX: G35 Multiple sclerosis (principal)
CPT/HCPCS: 36415; 82040; 84450; 84460; 85025; 86355; 86357; 86359; 86360

== ENCOUNTER → 2021-03-07 | Outpatient (CLI) | payer OTHER ==
--- NOTE | 2021-03-11 13:21 | MM ---
Reason for exam: screening (asymptomatic). Last mammogram was performed 3 years and 4 months ago. History: Family history of breast cancer in 2 maternal aunts. Benign US breast needle core RT of the right breast, November 17, 2017. Retro-pectoral silicone gel implants in both breasts, 2011. Benign excisional biopsy of the left breast, 2009. Physical Findings: A clinical breast exam by your physician is recommended on an annual basis and results should be correlated with mammographic findings. MG 3D Screen Mammo Imp/Cad Bilateral CC, MLO, and ID view(s) were taken. Prior study comparison: November 06, 2017, bilateral MG 3d diag mammo imp w/cad [facility]. The breast tissue is heterogeneously dense. This may lower the sensitivity of mammography. Previous mammotome biopsy in the right breast. Bilateral breast prothesis. ASSESSMENT: Benign, BI-RAD 2 RECOMMENDATION: Routine screening mammogram of both breasts in 1 year.
== END | disposition home or self-care (01) ==
LOC: RADMAMWWP 16:17
PROVIDERS: ATTEND Family Medicine
DX: Z12.31 Encounter for screening mammogram for malignant neoplasm of breast (principal); Z80.3 Family history of malignant neoplasm of breast
CPT/HCPCS: 77063; 77067

== ENCOUNTER 2021-05-02 15:07 | Emergency (ER) | payer OTHER ==
[2021-05-02 15:53] VITALS: BP 152/91; PULSE 76; RESP 20; TEMP 98.2
[2021-05-02] MEDS ORDERED: HYDROmorphone 0.5 MG/0.5 ML SYRINGE IM STA (16:35)
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
== END 2021-05-02 18:44 | disposition home or self-care (01) ==
LOC: EC 15:07
DX: R51.9 Headache, unspecified (principal); F41.9 Anxiety disorder, unspecified; Z88.5 Allergy status to narcotic agent; Z88.1 Allergy status to other antibiotic agents; Z98.51 Tubal ligation status
CPT/HCPCS: 99284; 96372; 70486; 70450; J1170

== ENCOUNTER 2021-05-08 17:48 | Emergency (ER) | payer OTHER ==
[2021-05-08 18:00] VITALS: RESP 20
[2021-05-08] MEDS ORDERED: METOCLOPRAMIDE 5 MG/ML 2 ML VIAL IVP STA (19:13)
[2021-05-08] MEDS ORDERED: ONDANSETRON 4 MG/2 ML VIAL IVP STA (19:13)
--- NOTE | 2021-05-08 19:35 | ED ---
Abdominal Pain HPI - General Chief Complaint: Abdominal Pain Stated Complaint: abd pain Time Seen by Provider: 05/08/21 19:04 Source: patient Mode of arrival: ambulatory Limitations: no limitations - History of Present Illness Initial Comments: 41-year-old female with past medical history of multiple sclerosis and hypertension presenting with chief complaint of abdominal pain. Pain was sudden in onset and started about 3 hours prior to presentation. It is a sharp stabbing pain located in the epigastric region. She admits to nausea with no vomiting. It does not radiate to the back or other regions of the abdomen. Pain feels slightly better with leaning forward, and is worse with standing up straight. Patient states that today she started lisinopril, otherwise no new medications. Denies chest pain, shortness of breath, cough, headache, palp itations, diarrhea, constipation, fever, chills, dizziness, syncope, weakness, neck pain, back pain, flank pain, dysuria, urgency, frequency, hematuria, hematochezia, hematemesis, cough, hemoptysis, recent injury. - Related Data Home Medications Medication Instructions Recorded Confirmed Fingolimod HCl [Gilenya] 0.5 mg PO DAILY 08/30/20 05/08/21 clonazePAM [KlonoPIN] 0.5 mg PO HS PRN 08/30/20 05/08/21 modafiniL [Provigil] 200 mg PO DAILY 08/30/20 05/08/21 hydroCHLOROthiazide [Hydrodiuril] 25 mg PO DAILY 05/08/21 05/08/21 lisinopriL [Zestril] 10 mg PO DAILY 05/08/21 05/08/21 Allergies Allergy/AdvReac Type Severity Reaction Status Date / Time morphine Allergy Rash/Hives Verified 05/08/21 19:41 ketamine AdvReac Hallucinati Verified 05/08/21 19:41 ons ketorolac tromethamine AdvReac Nausea & Verified 05/08/21 19:41 [From Toradol] Vomiting paper tape Allergy Mild Rash/Hives Uncoded 05/08/21 17:57 Review of Systems ROS Statement: Those systems with pertinent positive or pertinent negative responses have been documented in the HPI. ROS Other: All systems not noted in ROS Statement are negative. Past Medical History Past Medical History: Musculoskeletal Disorder Additional Past Medical History / Comment(s): bradycardia, Multiple Sclerosis. Obstetric history: She has had 3 vaginal deliveries and 2 spontaneous abortions, cholestasis of . O+, abs neg, Rub Imm, RPR NR, Hep B neg. History of Any Multi-Drug Resistant Organisms: None Reported Past Surgical History: Tubal Ligation, Uterine Ablation Additional Past Surgical History / Comment(s): D&C, breast implants, Past Anesthesia/Blood Transfusion Reactions: No Reported Reaction Past Psychological History: Anxiety Smoking Status: Never smoker Past Alcohol Use History: Rare Past Drug Use History: None Reported - Past Family History Father Family Medical History: Diabetes Mellitus, Hypertension Additional Family Medical History / Comment(s): Father is alive at age 66 and had heart attack when 32 status post CABG. Mother Family Medical History: Hypertension Additional Family Medical History / Comment(s): Mother is alive at age 62 with history of gallstones. Brother(s) Family Medical History: No Reported History Additional Family Medical History / Comment(s): Patient has 2 brothers and one s ister. Her sister has chronic workup for meningitis-type symptoms. Siblings have not been diagnosed with MS. Patient has 2 children with primary immunodeficiency. General Exam Limitations: no limitations General appearance: alert, in no apparent distress Head exam: Present: atraumatic, normocephalic, normal inspection Eye exam: Present: normal appearance, PERRL, EOMI. Absent: scleral icterus, conjunctival injection, periorbital swelling ENT exam: Present: normal exam, mucous membranes moist Neck exam: Present: normal inspection Respiratory exam: Present: normal lung sounds bilaterally. Absent: respiratory distress, wheezes, rales, rhonchi, stridor Cardiovascular Exam: Present: regular rate, normal rhythm, normal heart sounds. Absent: systolic murmur, diastolic murmur, rubs, gallop, clicks GI/Abdominal exam: Present: soft, tenderness (epigastric), normal bowel sounds. Absent: distended, guarding, rebound, rigid Back exam: Present: normal inspection, full ROM Neurological exam: Present: alert, oriented X3, CN II-XII intact Psychiatric exam: Present: normal affect, normal mood Skin exam: Present: warm, dry, intact, normal color. Absent: rash Course Vital Signs 05/08/21 05/08/21 17:57 21:38 Temperature 97.6 F 98 F Pulse Rate 82 77 Respiratory 20 20 Rate Blood Pressure 101/64 127/77 O2 Sat by Pulse 97 98 Oximetry - Reevaluation(s) Reevaluation #1: Patient states pain has gone down from a 9 out of 10 to a 6 out of 10 with the use of GI cocktail and Pepcid. 05/08/21 21:30 Medical Decision Making - Medical Decision Making Patient is a 41-year-old female presenting with chief complaint of abdominal pain. Pain began suddenly approximately 3 hours before presentation. It is a sharp stabbing pain located in the epigastric region. Pain is constant, unchanged by position or exertion, no radiation to the back or other regions of the abdomen. Patient denies chest pain, shortness of breath, vomiting, palpitations, headache, numbness, tingling. On exam there is tenderness of the epigastric region, abdomen is soft, nondistended, normal bowel sounds. Lungs are clear to auscultation and normal heart sounds. Lab work is remarkable for hypokalemia with a potassium of 3.3. Patient was given 10 mEq of potassium by mouth. Patient was given Zofran 4 mg, Reglan 10 mg, GI cocktail, and Pepcid for GI symptoms. Pain was responsive to treatment going from a 9 out of 10 to a 6 out of 10. EKG showed bradycardia and otherwise no acute changes. Rechecked patient's pulse by palpation of radial pulse after EKG, rate was 68 bpm. Troponin was not elevated. Acute abdominal series remarkable for stool burden. Patient was educated on results and encouraged to take daily fiber supplement such as Metamucil and [id number] Pepcid as needed. Must follow up with primary care in 1-2 days. Thoroughly discussed parameters for return. Return to ER worsening symptoms or new onset alarming symptoms. Answered All questions. Patient conveyed verbal understanding and agreed to the plan. My attending was Dr. Fleming. - Lab Data Result diagrams: 05/08/21 19:30 05/08/21 19:30 Lab Results 05/08/21 05/08/21 05/08/21 Range/Units 19:30 19:30 19:30 WBC 5.1 (3.8-10.6) k/uL RBC 4.71 (3.80-5.40) m/uL Hgb 14.4 (11.4-16.0) gm/dL Hct 42.5 (34.0-46.0) % MCV 90.2 (80.0-100.0) fL MCH 30.5 (25.0-35.0) pg MCHC 33.8 (31.0-37.0) g/dL RDW 12.3 (11.5-15.5) % Plt Count 455 H (150-450) k/uL MPV 7.2 Neutrophils % 65 % Lymphocytes % 17 % Monocytes % 11 % Eosinophils % 3 % Basophils % 1 % Neutrophils # 3.3 (1.3-7.7) k/uL Lymphocytes # 0.9 L (1.0-4.8) k/uL Monocytes # 0.6 (0-1.0) k/uL Eosinophils # 0.1 (0-0.7) k/uL Basophils # 0.1 (0-0.2) k/uL Sodium 136 L (137-145) mmol/L Potassium 3.3 L (3.5-5.1) mmol/L Chloride 98 (98-107) mmol/L Carbon Dioxide 30 (22-30) mmol/L Anion Gap 8 mmol/L BUN 22 H (7-17) mg/dL Creatinine 0.62 (0.52-1.04) mg/dL Est GFR (CKD-EPI)AfAm >90 (>60 ml/min/1.73 sqM) Est GFR (CKD-EPI)NonAf >90 (>60 ml/min/1.73 sqM) Glucose 100 H (74-99) mg/dL Calcium 9.5 (8.4-10.2) mg/dL Magnesium 2.2 (1.6-2.3) mg/dL Total Bilirubin 0.7 (0.2-1.3) mg/dL AST 27 (14-36) U/L ALT 18 (4-34) U/L Alkaline Phosphatase 56 (38-126) U/L Troponin I <0.012 (0.000-0.034) ng/mL Total Protein 6.8 (6.3-8.2) g/dL Albumin 4.4 (3.5-5.0) g/dL Amylase 61 (30-110) U/L Lipase 171 (23-300) U/L Urine Color Urine Appearance (Clear) Urine pH (5.0-8.0) Ur Specific [place] (1.001-1.035) Urine Protein (Negative) Urine Glucose (UA) (Negative) Urine Ketones (Negative) Urine Blood (Negative) Urine Nitrite (Negative) Urine Bilirubin (Negative) Urine Urobilinogen (<2.0) mg/dL Ur Leukocyte Esterase (Negative) 05/08/21 Range/Units 20:55 WBC (3.8-10.6) k/uL RBC (3.80-5.40) m/uL Hgb (11.4-16.0) gm/dL Hct (34.0-46.0) % MCV (80.0-100.0) fL MCH (25.0-35.0) pg MCHC (31.0-37.0) g/dL RDW (11.5-15.5) % Plt Count (150-450) k/uL MPV Neutrophils % % Lymphocytes % % Monocytes % % Eosinophils % % Basophils % % Neutrophils # (1.3-7.7) k/uL Lymphocytes # (1.0-4.8) k/uL Monocytes # (0-1.0) k/uL Eosinophils # (0-0.7) k/uL Basophils # (0-0.2) k/uL Sodium (137-145) mmol/L Potassium (3.5-5.1) mmol/L Chloride (98-107) mmol/L Carbon Dioxide (22-30) mmol/L Anion Gap mmol/L BUN (7-17) mg/dL Creatinine (0.52-1.04) mg/dL Est GFR (CKD-EPI)AfAm (>60 ml/min/1.73 sqM) Est GFR (CKD-EPI)NonAf (>60 ml/min/1.73 sqM) Glucose (74-99) mg/dL Calcium (8.4-10.2) mg/dL Magnesium (1.6-2.3) mg/dL Total Bilirubin (0.2-1.3) mg/dL AST (14-36) U/L ALT (4-34) U/L Alkaline Phosphatase (38-126) U/L Troponin I (0.000-0.034) ng/mL Total Protein (6.3-8.2) g/dL Albumin (3.5-5.0) g/dL Amylase (30-110) U/L Lipase (23-300) U/L Urine Color Yellow Urine Appearance Clear (Clear) Urine pH 7.0 (5.0-8.0) Ur Specific [place] 1.023 (1.001-1.035) Urine Protein Trace H (Negative) Urine Glucose (UA) Negative (Negative) Urine Ketones Negative (Negative) Urine Blood Negative (Negative) Urine Nitrite Negative (Negative) Urine Bilirubin Negative (Negative) Urine Urobilinogen <2.0 (<2.0) mg/dL Ur Leukocyte Esterase Negative (Negative) - EKG Data Rate: bradycardia (Rechecked pulse by palpation of radial pulse and rate was 68 bpm) When compared to previous EKG there are: no significant change - Radiology Data Radiology results: report reviewed, image reviewed Acute abdominal series shows stool burden Disposition Clinical Impression: Abdominal pain, Gastritis Disposition: HOME SELF-CARE Condition: Good Instructions (If sedation given, give patient instructions): Gastritis (DC), Ab dominal Pain (ED) Additional Instructions: Follow-up closely with primary care in 1-2 days. May take [id number] Pepcid as needed for GI upset. Report back to ER with worsening symptoms or new onset alarming symptoms, including but not limited to chest pain, shortness of breath, palpitations, vomiting, increasing abdominal pain. Is patient prescribed a controlled substance at d/c from ED?: No Referrals: Kacie Matthews MD [Primary Care Provider] - 1-2 days Time of Disposition: 21:28
[2021-05-08 19:51] LABS: Basophils # (A) 0.1 k/uL (0-0.2); Basophils % (A) 1 %; Eosinophils # (A) 0.1 k/uL (0-0.7); Eosinophils % (A) 3 %; HCT 42.5 % (34.0-46.0); HGB 14.4 gm/dL (11.4-16.0); Lymphocytes # (A) 0.9 k/uL (1.0-4.8); Lymphocytes % (A) 17 %; MCH 30.5 pg (25.0-35.0); MCHC 33.8 g/dL (31.0-37.0); MCV 90.2 fL (80.0-100.0); Mean Platelet Volume 7.2; Monocytes # (A) 0.6 k/uL (0-1.0); Monocytes % (A) 11 %; Neutrophils # (A) 3.3 k/uL (1.3-7.7); Neutrophils % (A) 65 %; Platelet Count 455 k/uL (150-450); RBC 4.71 m/uL (3.80-5.40); RDW 12.3 % (11.5-15.5); WBC 5.1 k/uL (3.8-10.6)
[2021-05-08 20:02] LABS: ALT 18 U/L (4-34); AST 27 U/L (14-36); African American GFR (CKD) >90 (>60 ml/min/1.73 sqM); Albumin 4.4 g/dL (3.5-5.0); Alkaline Phosphatase 56 U/L (38-126); Amylase 61 U/L (30-110); Anion Gap 8 mmol/L; Blood Urea Nitrogen 22 mg/dL (7-17); Calcium 9.5 mg/dL (8.4-10.2); Carbon Dioxide 30 mmol/L (22-30); Chloride 98 mmol/L (98-107); Glucose 100 mg/dL (74-99); Lipase 171 U/L (23-300); Magnesium 2.2 mg/dL (1.6-2.3); Non-African American GFR(CKD) >90 (>60 ml/min/1.73 sqM); Potassium 3.3 mmol/L (3.5-5.1); Sodium 136 mmol/L (137-145); Total Bilirubin 0.7 mg/dL (0.2-1.3); Total Protein 6.8 g/dL (6.3-8.2)
--- NOTE | 2021-05-08 20:10 | XR ---
EXAMINATION TYPE: XR abdomen acute w cxr DATE OF EXAM: 05/08/2021 COMPARISON: 08/30/2020 HISTORY: Pain TECHNIQUE: Supine, upright, and left side down lateral decubitus views of the abdomen are obtained. FINDINGS: There is no evidence for pneumoperitoneum. The bowel gas pattern is nonobstructive. Moderate colonic stool volume with mild colonic gas seen. No sizeable air fluid levels. No mass effects are seen. No unusual calcifications. The lungs are clear. Normal cardiomediastinal silhouette. No acute osseou s abnormality. Bilateral tubal ligation clips seen. IMPRESSION: Stool burden. Otherwise no acute process.
[2021-05-08] MEDS ORDERED: POTASSIUM CHLORIDE ER 10 MEQ TAB.ER.PRT PO STA (20:17)
[2021-05-08] MEDS ORDERED: FAMOTIDINE 20 MG/2 ML VIAL IV STA (20:33)
[2021-05-08] MEDS ORDERED: MAG HYDROX/AL HYDROX/SIMETH 30 ML, HYOSCYAMINE ELIXIR 10 ML, LIDOCAINE VISCOUS 2% 10 ML PO STA ×3 (20:33)
[2021-05-08 21:01] LABS: Appearance,Urine Clear (Clear); Bilirubin,Urine Negative (Negative); Blood,Urine Negative (Negative); Color,Urine Yellow; Glucose,Urine (UA) Negative (Negative); Ketones,Urine Negative (Negative); Leukocyte Esterase,Urine Negative (Negative); Nitrite,Urine Negative (Negative); Protein,Urine Trace (Negative); Specific Gravity,Urine 1.023 (1.001-1.035); Urobilinogen,Urine <2.0 mg/dL (<2.0)
[2021-05-08 21:39] VITALS: BP 127/77; PULSE 77; TEMP 98
== END 2021-05-08 21:39 | disposition home or self-care (01) ==
LOC: EC 17:48
DX: K29.70 Gastritis, unspecified, without bleeding (principal); F41.9 Anxiety disorder, unspecified; Z88.1 Allergy status to other antibiotic agents; Z88.5 Allergy status to narcotic agent; Z98.51 Tubal ligation status
CPT/HCPCS: 99284; 96374; 96375 ×2; 36415; 93005; 80053; 82150; 83690; 83735; 84484; 85025; 81003; 74022; J2765; J2405

== ENCOUNTER 2022-05-20 11:40 | Observation (INO) | payer BC, OTHER ==
[2022-05-20] MEDS ORDERED: NITROGLYCERIN OINT 1 INCH/GM PACKET TOPICAL STA (11:47)
[2022-05-20] MEDS ORDERED: ASPIRIN 81 MG PO STA (11:47)
--- NOTE | 2022-05-20 11:49 | ED ---
General Adult HPI - General Stated complaint: chest pain Time Seen by Provider: 05/20/22 11:43 Source: patient, EMS, RN notes reviewed Mode of arrival: EMS Limitations: no limitations - History of Present Illness Initial comments: Patient is a pleasant 42-year-old female presenting to the emergency department with concerns with chest discomfort. Onset of symptoms was around 2 hours prior to arrival. Discomfort felt like tightness or sharp. No history of similar symptoms previously. Symptoms are improving. Discomfort was 7/10. Discomfort has improved to 4/10. No associated dyspnea, nausea, diaphoresis. - Related Data Home Medications Medication Instructions Recorded Confirmed clonazePAM [KlonoPIN] 0.5 mg PO HS PRN 08/30/20 05/20/22 Melatonin [Melatonin Chew] 7.5 mg PO HS 05/20/22 05/20/22 amLODIPine [Norvasc] 10 mg PO DAILY 05/20/22 05/20/22 lisinopriL [Zestril] 20 mg PO DAILY 05/20/22 05/20/22 Allergies Allergy/AdvReac Type Severity Reaction Status Date / Time morphine Allergy Rash/Hives Verified 05/20/22 12:23 ketamine AdvReac Hallucinati Verified 05/20/22 12:23 ons ketorolac tromethamine AdvReac Nausea & Verified 05/20/22 12:23 [From Toradol] Vomiting paper tape Allergy Mild Rash/Hives Uncoded 05/08/21 17:57 Review of Systems ROS Statement: Those systems with pertinent positive or pertinent negative responses have been documented in the HPI. ROS Other: All systems not noted in ROS Statement are negative. Constitutional: Denies: fever Eyes: Denies: eye pain ENT: Denies: ear pain Respiratory: Denies: cough Cardiovascular: Reports: as per HPI, chest pain Endocrine: Denies: fatigue Gastrointestinal: Denies: abdominal pain Genitourinary: Denies: urgency Musculoskeletal: Denies: back pain Past Medical History Past Medical History: Musculoskeletal Disorder Additional Past Medical History / Comment(s): bradycardia, Multiple Sclerosis. Obstetric history: She has had 3 vaginal deliveries and 2 spontaneous abortions, cholestasis of . O+, abs neg, Rub Imm, RPR NR, Hep B neg. History of Any Multi-Drug Resistant Organisms: None Reported Past Surgical History: Tubal Ligation, Uterine Ablation Additional Past Surgical History / Comment(s): D&C, breast implants, Past Anesthesia/Blood Transfusion Reactions: No Reported Reaction Past Psychological History: Anxiety Smoking Status: Never smoker Past Alcohol Use History: Rare Past Drug Use History: None Reported - Past Family History Father Family Medical History: Diabetes Mellitus, Hypertension Additional Family Medical History / Comment(s): Father is alive at age 66 and had heart attack when 32 status post CABG. Mother Family Medical History: Hypertension Additional Family Medical History / Comment(s): Mother is alive at age 62 with history of gallstones. Brother(s) Family Medical History: No Reported History Additional Family Medical History / Comment(s): Patient has 2 brothers and one sister. Her sister has chronic workup for meningitis-type symptoms. Siblings have not been diagnosed with MS. Patient has 2 children with primary immunodeficiency. General Exam Limitations: no limitations General appearance: alert, in no apparent distress Head exam: Present: normocephalic Eye exam: Present: normal appearance Neck exam: Present: normal inspection Respiratory exam: Present: normal lung sounds bilaterally. Absent: chest wall tenderness Cardiovascular Exam: Present: regular rate, normal rhythm Expanded Peripheral pulses: 2+: Radial (R), Radial (L), Posterior Tibialis (R), Posterior Tibialis (L) GI/Abdominal exam: Present: soft. Absent: tenderness Extremities exam: Present: normal inspection. Absent: pedal edema, calf tenderness Neurological exam: Present: alert Psychiatric exam: Present: normal affect, normal mood Skin exam: Present: normal color Course Vital Signs 05/20/22 05/20/22 05/20/22 11:48 12:06 13:00 Temperature 98.7 F Pulse Rate 73 61 63 Respiratory 16 16 16 Rate Blood Pressure 115/72 101/61 102/68 O2 Sat by Pulse 98 Oximetry EKG Findings - EKG Results: EKG: interpreted by ERMD (Left axis), sinus rhythm, normal QRS, normal ST/T Medical Decision Making - Medical Decision Making Was pt. sent in by a medical professional or institution (, PA, CAPPING MACHINE OPERATOR, urgent care, hospital, or group home...) When possible be specific @ -No Did you speak to anyone other than the patient for history (EMS, parent, family, police, friend...)? What history was obtained from this source @ -No Did you review nursing and triage notes (agree or disagree)? Why? @ -I reviewed and agree with nursing and triage notes Were old charts reviewed (outside hosp., previous admission, EMS record, old EKG, old radiological studies, urgent care reports/EKG's, group home records)? Report findings @ -No old charts were reviewed Differential Diagnosis (chest pain, altered mental status, abdominal pain women, abdominal pain men, vaginal bleeding, weakness, fever, dyspnea, syncope, headache, dizziness, GI bleed, back pain, seizure, CVA, palpatations, mental health)? @ -Differential Chest Pain: Stable Angina, Unstable Angina, STEMI, NSTEMI Aortic Dissection, Pneumothorax, Musculoskeletal, Esophageal Spasm GERD, Cholecystitis, Pancreatitis, Zoster, this is not meant to be an all-inclusive list. EKG interpreted by me (3pts min.). @ -As above X-rays interpreted by me (1pt min.). @ -None done CT interpreted by me (1pt min.). @ -None done U/S interpreted by me (1pt. min.). @ -None done What testing was considered but not performed or refused? (CT, X-rays, U/S, labs)? Why? @ -None What meds were considered but not given or refused? Why? @ -None Did you discuss the management of the patient with other professionals (pr ofessionals i.e. , PA, CAPPING MACHINE OPERATOR, lab, RT, psych nurse, social director, supervisor stripping, teacher, landing signal officer, showcase trimmer)? Give summary @ -Case discussed with sheet will admit Dr. Araujo Was smoking cessation discussed for >3mins.? @ -No Was critical care preformed (if so, how long)? @ -No Were there social determinants of health that impacted care today? How? (Homelessness, low income, unemployed, alcoholism, drug addiction, transportation, low edu. Level, literacy, decrease access to med. care, residential, rehab)? @ -No Was there de-escalation of care discussed even if they declined (Discuss DNR or withdrawal of care, Hospice)? DNR status @ -No What co-morbidities impacted this encounter? (DM, HTN, Smoking, COPD, CAD, Cancer, CVA, ARF, Chemo, Hep., AIDS, mental health diagnosis, sleep apnea, morbid obesity)? @ -None Was patient admitted / discharged? Hospital course, mention meds given and route, prescriptions, significant lab abnormalities, going to OR and other p ertinent info. @ -Patient reevaluated and is further improved. Patient does have low heart score however is still having some discomfort and will be held for observation and cardiac evaluation Undiagnosed new problem with uncertain prognosis? @ -No Drug Therapy requiring intensive monitoring for toxicity (Heparin, Nitro, Insulin, Cardizem)? @ -No Were any procedures done? @ -No Diagnosis/symptom? @ -Chest pain Acute, or Chronic, or Acute on Chronic? @ -Acute Uncomplicated (without systemic symptoms) or Complicated (systemic symptoms)? @ -default Side effects of treatment? @ -No Exacerbation, Progression, or Severe Exacerbation? @ -No Poses a threat to life or bodily function? How? (Chest pain, [place], MA, pneumonia, PE, COPD, DKA, ARF, appy, cholecystitis, CVA, Diverticulitis, Homicidal, Suicidal, threat to staff... and all critical care pts) @ -No - Lab Data Result diagrams: 05/20/22 11:58 05/20/22 11:58 Lab Results 05/20/22 05/20/22 05/20/22 Range/Units 11:58 11:58 11:58 WBC 6.1 (3.8-10.6) k/uL RBC 4.31 (3.80-5.40) m/uL Hgb 13.0 (11.4-16.0) gm/dL Hct 38.7 (34.0-46.0) % MCV 89.6 (80.0-100.0) fL MCH 30.1 (25.0-35.0) pg MCHC 33.6 (31.0-37.0) g/dL RDW 12.3 (11.5-15.5) % Plt Count 423 (150-450) k/uL MPV 6.9 Neutrophils % 64 % Lymphocytes % 25 % Monocytes % 7 % Eosinophils % 3 % Basophils % 0 % Neutrophils # 3.9 (1.3-7.7) k/uL Lymphocytes # 1.5 (1.0-4.8) k/uL Monocytes # 0.4 (0-1.0) k/uL Eosinophils # 0.2 (0-0.7) k/uL Basophils # 0.0 (0-0.2) k/uL PT 11.0 (9.0-12.0) sec INR 1.0 (<1.2) APTT 23.0 (22.0-30.0) sec D-Dimer <0.17 (<0.60) mg/L FEU Sodium 136 L (137-145) mmol/L Potassium 4.3 (3.5-5.1) mmol/L Chloride 105 (98-107) mmol/L Carbon Dioxide 24 (22-30) mmol/L Anion Gap 7 mmol/L BUN 14 (7-17) mg/dL Creatinine 0.46 L (0.52-1.04) mg/dL Est GFR (CKD-EPI)AfAm >90 (>60 ml/min/1.73 sqM) Est GFR (CKD-EPI)NonAf >90 (>60 ml/min/1.73 sqM) Glucose 81 (74-99) mg/dL Calcium 8.4 (8.4-10.2) mg/dL Magnesium 2.1 (1.6-2.3) mg/dL Total Bilirubin 0.6 (0.2-1.3) mg/dL AST 24 (14-36) U/L ALT 19 (4-34) U/L Alkaline Phosphatase 49 (38-126) U/L Troponin I (0.000-0.034) ng/mL Total Protein 6.3 (6.3-8.2) g/dL Albumin 4.1 (3.5-5.0) g/dL Amylase 40 (30-110) U/L Lipase 54 (23-300) U/L 05/20/22 Range/Units 11:58 WBC (3.8-10.6) k/uL RBC (3.80-5.40) m/uL Hgb (11.4-16.0) gm/dL Hct (34.0-46.0) % MCV (80.0-100.0) fL MCH (25.0-35.0) pg MCHC (31.0-37.0) g/dL RDW (11.5-15.5) % Plt Count (150-450) k/uL MPV Neutrophils % % Lymphocytes % % Monocytes % % Eosinophils % % Basophils % % Neutrophils # (1.3-7.7) k/uL Lymphocytes # (1.0-4.8) k/uL Monocytes # (0-1.0) k/uL Eosinophils # (0-0.7) k/uL Basophils # (0-0.2) k/uL PT (9.0-12.0) sec INR (<1.2) APTT (22.0-30.0) sec D-Dimer (<0.60) mg/L FEU Sodium (137-145) mmol/L Potassium (3.5-5.1) mmol/L Chloride (98-107) mmol/L Carbon Dioxide (22-30) mmol/L Anion Gap mmol/L BUN (7-17) mg/dL Creatinine (0.52-1.04) mg/dL Est GFR (CKD-EPI)AfAm (>60 ml/min/1.73 sqM) Est GFR (CKD-EPI)NonAf (>60 ml/min/1.73 sqM) Glucose (74-99) mg/dL Calcium (8.4-10.2) mg/dL Magnesium (1.6-2.3) mg/dL Total Bilirubin (0.2-1.3) mg/dL AST (14-36) U/L ALT (4-34) U/L Alkaline Phosphatase (38-126) U/L Troponin I <0.012 (0.000-0.034) ng/mL Total Protein (6.3-8.2) g/dL Albumin (3.5-5.0) g/dL Amylase (30-110) U/L Lipase (23-300) U/L Disposition Clinical Impression: Chest pain Disposition: ADMITTED IP TO THIS HOSP Is patient prescribed a controlled substance at d/c from ED?: No Referrals: Kacie Matthews MD [Primary Care Provider] - 1-2 days Time of Disposition: 13:45
[2022-05-20 12:13] LABS: Basophils % (A) 0 %; Eosinophils # (A) 0.2 k/uL (0-0.7); Eosinophils % (A) 3 %; HCT 38.7 % (34.0-46.0); Lymphocytes # (A) 1.5 k/uL (1.0-4.8); Lymphocytes % (A) 25 %; MCH 30.1 pg (25.0-35.0); MCHC 33.6 g/dL (31.0-37.0); MCV 89.6 fL (80.0-100.0); Mean Platelet Volume 6.9; Monocytes # (A) 0.4 k/uL (0-1.0); Monocytes % (A) 7 %; Neutrophils # (A) 3.9 k/uL (1.3-7.7); Neutrophils % (A) 64 %; Platelet Count 423 k/uL (150-450); RBC 4.31 m/uL (3.80-5.40); RDW 12.3 % (11.5-15.5); WBC 6.1 k/uL (3.8-10.6)
--- NOTE | 2022-05-20 12:21 | XR ---
EXAMINATION TYPE: XR chest 2V DATE OF EXAM: 05/20/2022 COMPARISON: 08/30/2020 INDICATION: Chest pain TECHNIQUE: Frontal and lateral views of the chest are obtained. FINDINGS: The heart size is normal. The pulmonary vasculature is normal. The lungs are clear. IMPRESSION: 1. No acute pulmonary process.
[2022-05-20 12:32] LABS: ALT 19 U/L (4-34); AST 24 U/L (14-36); African American GFR (CKD) >90 (>60 ml/min/1.73 sqM); Albumin 4.1 g/dL (3.5-5.0); Alkaline Phosphatase 49 U/L (38-126); Amylase 40 U/L (30-110); Anion Gap 7 mmol/L; Blood Urea Nitrogen 14 mg/dL (7-17); Calcium 8.4 mg/dL (8.4-10.2); Carbon Dioxide 24 mmol/L (22-30); Chloride 105 mmol/L (98-107); Glucose 81 mg/dL (74-99); Lipase 54 U/L (23-300); Magnesium 2.1 mg/dL (1.6-2.3); Non-African American GFR(CKD) >90 (>60 ml/min/1.73 sqM); Potassium 4.3 mmol/L (3.5-5.1); Sodium 136 mmol/L (137-145); Total Bilirubin 0.6 mg/dL (0.2-1.3); Total Protein 6.3 g/dL (6.3-8.2)
[2022-05-20] MEDS ORDERED: NITROGLYCERIN SL TABS 0.4 MG TAB SUBLINGUAL PRN (13:45)
[2022-05-20] MEDS: NITROGLYCERIN OINT 1 INCH/GM PACKET TOPICAL SCH ×2 (16:22→23:54)
[2022-05-20] MEDS ORDERED: clonazePAM 0.5 MG TAB PO PRN (16:42)
[2022-05-20] MEDS ORDERED: ALPRAZolam 0.25 MG TAB PO PRN (16:44)
[2022-05-20] MEDS ORDERED: ACETAMINOPHEN TAB 500 MG TAB PO STA (17:09)
[2022-05-20] MEDS ORDERED: MELATONIN 5 MG TABLET PO SCH (21:00)
--- NOTE | 2022-05-20 21:50 | HP ---
HISTORY AND PHYSICAL CHIEF COMPLAINT: Chest pain. HISTORY OF PRESENT ILLNESS: This is a 42-year-old woman with a past medical history of bradycardia, multiple sclerosis, being followed by Dr. Matthews in the outpatient. She is complaining of left-sided chest pain which was rather sharp in character and pressure-type on the left side radiating to the left shoulder. The pain was improved to 4.10 in the ER and the patient was admitted for further evaluation and treatment. The EKG showed incomplete right bundle-branch block. Otherwise, initial troponins are negative. D-dimer is also negative. There is no history of any fever, rigors, or chills. The patient does have family history of coronary artery disease in father at the age of 40. PAST MEDICAL HISTORY: Reviewed, include multiple sclerosis, bradycardia. Rest of the history and rest of the chart is also reviewed. HOME MEDICATIONS: Reviewed include melatonin. Dose and rest of medication noted. ALLERGIES: Reviewed include morphine. Rest of the allergies noted. FAMILY HISTORY: History of heart disease, hypertension, diabetes mellitus. SOCIAL HISTORY: Occasional alcohol. No history of smoking. REVIEW OF SYSTEMS: A 14-point review is negative except as mentioned earlier. PHYSICAL EXAMINATION: VITAL SIGNS: Pulse is 77, blood pressure 104/64, respirations 16. HEENT: Conjunctivae normal. NECK: No JVD. CARDIOVASCULAR: No murmur. RESPIRATIONS: Breath sounds diminished at the bases. No rhonchi. No crackles. ABDOMEN: Soft, nontender. LEGS: No edema. No swelling. NERVOUS SYSTEM: No focal deficit. SKIN: No ulcer, rash, bleeding. JOINTS: No active deforming arthropathy. LABORATORY DATA: CBC within normal. Troponins are noted. EKG reviewed personally. ASSESSMENT: 1. Chest pain, possible unstable angina. 2. Rule out myocardial infarction. 3. History of bradycardia. 4. History of multiple sclerosis. 5. History of anxiety. RECOMMENDATIONS AND DISCUSSION: This is a 42-year-old woman, who presented with multiple complex medical issues. At this time, we will continue to monitor and we will initiate acute coronary syndrome protocol and repeat troponins per protocol and Cardiology consultation. The patient might need a stress test if the troponins are negative. Otherwise, we will continue to monitor. See orders for further details. Further recommendations to follow. MMODL / IJN: [id number] /
[2022-05-20 23:07] VITALS: RESP 16
[2022-05-21] MEDS: ACETAMINOPHEN TAB 325 MG TAB PO PRN ×2 (02:45→11:07)
[2022-05-21] MEDS: NITROGLYCERIN OINT 1 INCH/GM PACKET TOPICAL SCH (05:23)
--- NOTE | 2022-05-21 06:49 | P.CRDCN ---
History of Present Illness Consult date: 05/21/22 Chief complaint: Chest pain History of present illness: Patient is a pleasant 42-year-old female patient with a past medical history significant for hypertension as well as history of multiple sclerosis and also history of bradycardia presented to the hospital complaining of chest discomfort. 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 She describes discomfort as a sharp the middle of the chest with some radiation to her left shoulder. No radiation to the arms or neck or back. No associated symptoms of sweating or dizziness or lightheadedness or any feeling of heart racing or fluttering or any presyncope or syncopal. The discomfort lasted for about 20 minutes. Ambulance was called and she was given some medication, the details are unknown, with improvement in her symptoms. Since then she has been chest pain-free. She also has been experiencing bilateral lower extremities edema for the last several weeks. She was seen recently by her primary care physician where she was prescribed medic ations also with unknown details. She does have hypertension as risk factors she does have also significant family history of coronary artery disease involving her father who had a heart attack at early age in the 40s. Beside that she has no diabetes. She does not smoke. No established history of coronary artery disease but she does have history of bradycardia she was living in [place] required her to be admitted to the intensive care unit where no pacemaker was needed at that point. Also the details on that are unavailable at this point. The examination is remarkable for stable vital signs with a regular rhythm and clear breathing sounds bilaterally and no lower extremity is edema noted. She underwent a workup including EKG showing sinus rhythm with no significant ST or T-wave abnormalities. She underwent cardiac enzymes came in to be unremarkable. Assessment Chest discomfort, atypical, appears to be resolved Hypertension, the pressure appeared to be under good control on the current medical regimen Lower extremities edema which has improved as well Multiple sclerosis History of bradycardia Significant family history of CAD Plan Acute coronary event was ruled out The patient currently is chest pain-free Further cardiac investigation including stress test and echocardiogram. I'm going to obtain an exercise treadmill stress test explaining follow-up with the patient Past Medical History Past Medical History: Musculoskeletal Disorder Additional Past Medical History / Comment(s): bradycardia, Multiple Sclerosis. Obstetric history: She has had 3 vaginal deliveries and 2 spontaneous abortions, cholestasis of . O+, abs neg, Rub Imm, RPR NR, Hep B neg. History of Any Multi-Drug Resistant Organisms: None Reported Past Surgical History: Tubal Ligation, Uterine Ablation Additional Past Surgical History / Comment(s): D&C, breast implants, Past Anesthesia/Blood Transfusion Reactions: No Reported Reaction Past Psychological History: Anxiety Smoking Status: Never smoker Past Alcohol Use History: Rare Additional Past Alcohol Use History / Comment(s): patient is a lifelong nonsmoker. No illicit drug use. Occasional alcohol use. She has a mother of 7 children with 3 being stepchildren. Past Drug Use History: None Reported - Past Family History Father Family Medical History: Diabetes Mellitus, Hypertension Additional Family Medical History / Comment(s): Father is alive at age 66 and had heart attack when 32 status post CABG. Mother Family Medical History: Hypertension Additional Family Medical History / Comment(s): Mother is alive at age 62 with history of gallstones. Brother(s) Family Medical History: No Reported History Additional Family Medical History / Comment(s): Patient has 2 brothers and one sister. Her sister has chronic workup for meningitis-type symptoms. Siblings have not been diagnosed with MS. Patient has 2 children with primary immunode ficiency. Medications and Allergies Home Medications Medication Instructions Recorded Confirmed Type clonazePAM [KlonoPIN] 0.5 mg PO HS PRN 08/30/20 05/20/22 History Melatonin [Melatonin Chew] 7.5 mg PO HS 05/20/22 05/20/22 History amLODIPine [Norvasc] 10 mg PO DAILY 05/20/22 05/20/22 History lisinopriL [Zestril] 20 mg PO DAILY 05/20/22 05/20/22 History Allergies Allergy/AdvReac Type Severity Reaction Status Date / Time morphine Allergy Rash/Hives Verified 05/20/22 12:23 ketamine AdvReac Hallucinati Verified 05/20/22 12:23 ons ketorolac tromethamine AdvReac Nausea & Verified 05/20/22 12:23 [From Toradol] Vomiting paper tape Allergy Mild Rash/Hives Uncoded 05/08/21 17:57 Physical Exam Vitals: Vital Signs Temp Pulse Pulse Resp BP BP Pulse Ox 05/21/22 02:47 98.1 F 68 16 100/63 98 03/21/23 20:29 97.8 F 56 L 16 105/63 99 05/20/22 19:13 60 17 106/74 95 05/20/22 17:08 75 16 109/69 05/20/22 16:21 61 18 108/80 05/20/22 14:17 77 16 104/64 97 05/20/22 13:00 63 16 102/68 05/20/22 12:06 61 16 101/61 05/20/22 11:48 98.7 F 73 16 115/72 98 Intake and Output 05/20/22 05/20/22 05/21/22 14:59 22:59 06:59 Other: # Voids 1 1 Weight 74.843 kg 74.843 kg Results 05/20/22 11:58 05/20/22 11:58 Cardiac Enzymes 05/20/22 05/20/22 05/20/22 Range/Units 11:58 11:58 14:43 AST 24 (14-36) U/L Troponin I <0.012 <0.012 (0.000-0.034) ng/mL 05/20/22 Range/Units 18:33 AST (14-36) U/L Troponin I <0.012 (0.000-0.034) ng/mL Coagulation 05/20/22 Range/Units 11:58 PT 11.0 (9.0-12.0) sec APTT 23.0 (22.0-30.0) sec CBC 05/20/22 Range/Units 11:58 WBC 6.1 (3.8-10.6) k/uL RBC 4.31 (3.80-5.40) m/uL Hgb 13.0 (11.4-16.0) gm/dL Hct 38.7 (34.0-46.0) % Plt Count 423 (150-450) k/uL Comprehensive Metabolic Panel 05/20/22 Range/Units 11:58 Sodium 136 L (137-145) mmol/L Potassium 4.3 (3.5-5.1) mmol/L Chloride 105 (98-107) mmol/L Carbon Dioxide 24 (22-30) mmol/L BUN 14 (7-17) mg/dL Creatinine 0.46 L (0.52-1.04) mg/dL Glucose 81 (74-99) mg/dL Calcium 8.4 (8.4-10.2) mg/dL AST 24 (14-36) U/L ALT 19 (4-34) U/L Alkaline Phosphatase 49 (38-126) U/L Total Protein 6.3 (6.3-8.2) g/dL Albumin 4.1 (3.5-5.0) g/dL Current Medications Generic Name Dose Route Start Last Admin Trade Name Freq PRN Reason Stop Dose Admin Acetaminophen 650 mg 05/21/22 02:41 05/21/22 02:45 Acetaminophen Tab 325 Mg Tab PO 650 mg Q4HR PRN Administration Fever and/ or Pain Alprazolam 0.25 mg 05/20/22 16:44 Alprazolam 0.25 Mg Tab PO TID PRN Anxiety Amlodipine Besylate 10 mg 05/21/22 09:00 Amlodipine 10 Mg Tab PO DAILY VIJAY Aspirin 325 mg 05/21/22 09:00 Aspirin 325 Mg Tab PO DAILY VIJAY Clonazepam 0.5 mg 05/20/22 16:42 Clonazepam 0.5 Mg Tab PO HS PRN Muscle Spasm Lisinopril 20 mg 05/21/22 09:00 Lisinopril 20 Mg Tab PO DAILY VIJAY Melatonin 7.5 mg 05/20/22 21:00 05/20/22 20:28 Melatonin 5 Mg Tablet PO 7.5 mg HS VIJAY Administration Nitroglycerin 0.4 mg 05/20/22 13:45 05/20/22 17:09 Nitroglycerin Sl Tabs 0.4 Mg Tab SUBLINGUAL 0.4 mg Q5M PRN Administration Chest Pain Nitroglycerin 0.5 inch 05/20/22 18:00 05/21/22 05:23 Nitroglycerin Oint 1 Inch/Gm Packet TOPICAL Not Given [facility] Pantoprazole Sodium 40 mg 05/21/22 07:30 05/21/22 06:04 Pantoprazole 40 Mg Tablet PO 40 mg [id number] Administration Intake and Output 05/20/22 05/20/22 05/21/22 14:59 22:59 06:59 Other: # Voids 1 1 Weight 74.843 kg 74.843 kg Patient Weight 05/21/22 06:59 Weight 74.843 kg 05/20/22 11:58 05/20/22 11:58
[2022-05-21] MEDS ORDERED: PANTOPRAZOLE 40 MG TABLET PO SCH (07:30)
[2022-05-21] MEDS ORDERED: ASPIRIN 325 MG TAB PO SCH (09:00)
[2022-05-21] MEDS ORDERED: lisinopriL 20 MG TAB PO SCH (09:00)
[2022-05-21] MEDS ORDERED: amLODIPine 10 MG TAB PO SCH (09:00)
[2022-05-21 09:05] VITALS: BP 118/80; PULSE 74; TEMP 98.4
[2022-05-21 09:05] LABS: Basophils % (A) 1.4 %; Eosinophils # (A) 0.33 X 10*3/uL (0.04-0.35); Eosinophils % (A) 4.7 %; HCT 42.4 % (37.2-46.3); HGB 13.8 g/dL (12.0-15.0); Immature Grans, Automated 0.3 %; Lymphocytes # (A) 2.07 X 10*3/uL (0.90-5.00); Lymphocytes % (A) 29.6 %; MCH 29.6 pg (27.0-32.0); MCHC 32.5 g/dL (32.0-37.0); Mean Platelet Volume 8.8 fL (9.5-12.2); Monocytes # (A) 0.74 X 10*3/uL (0.20-1.00); Monocytes % (A) 10.6 %; NRBC Per 100 WBC 0 /100 WBCS (0.0-0.0); Neutrophils # (A) 3.73 X 10*3/uL (1.80-7.70); Neutrophils % (A) 53.4 %; Platelet Count 407 X 10*3/uL (140-440); RBC 4.66 X 10*6/uL (4.10-5.20); RDW 12.6 % (11.5-14.5); WBC 6.99 X 10*3/uL (4.50-10.00)
[2022-05-21 09:26] LABS: African American GFR (CKD) 129.4 (60.0-200.0); Blood Urea Nitrogen 19.2 mg/dL (9.0-27.0); Calcium 9.5 mg/dL (8.7-10.3); Carbon Dioxide 22.4 mmol/L (20.0-27.5); Chloride 102 mmol/L (96-109); Chol/HDL Ratio 2.62 Ratio; Glucose 92 mg/dL (70-110); LDL Cholesterol,Calculated 95.3 mg/dL (0.0-131.0); Non-African American GFR(CKD) 111.6 (60.0-200.0); Potassium 4.9 mmol/L (3.5-5.5); Sodium 134 mmol/L (135-145); VLDL Calculation 10.36 mg/dL (5.00-40.00)
--- NOTE | 2022-05-21 10:41 | CA ---
Transthoracic Echo Report Name: Deanna Murillo Age: 42 Gender: F : 1980 Exam Date: 05/21/2022 07:21 Exam Location: [facility] Ht (in): 67 Wt (lb): 165 Ordering Physician: Mayank Jackson MD ([id number]) Attending/Referring Phys: Finishing Supervisor [employer] Lucho Menard RDCS Procedure CPT: Indications: edema Cardiac Hx: Technical Quality: Contrast 1: Total Dose (mL): Contrast 2: Total Dose (mL): MEASUREMENTS (Male / Female) Normal Values 2D ECHO LV Diastolic Diameter PLAX 4.7 cm 4.2 - 5.9 / 3.9 - 5.3 cm LV Systolic Diameter PLAX 3.3 cm LV Fractional Shortening PLAX 29.8 % IVS Diastolic Thickness 0.8 cm 0.6 - 1.0 / 0.6 - 0.9 cm IVS Systolic Thickness 1.0 cm LVPW Diastolic Thickness 0.9 cm 0.6 - 1.0 / 0.6 - 0.9 cm LVPW Systolic Thickness 1.3 cm LV Relative Wall Thickness 0.4 RV Internal Dim ED PLAX 2.8 cm LVOT Diameter 2.0 cm LA Systolic Diameter LX 2.8 cm 3.0 - 4.0 / 2.7 - 3.8 cm LV Diastolic Volume MOD BP 84.9 cm??? 67 - 155 / 56 - 104 cm??? LV Systolic Volume MOD BP 23.1 cm??? 22 - 58 / 19 - 49 cm??? LV Ejection Fraction MOD BP 72.8 % >= 55 % LV Stroke Volume MOD BP 61.8 cm??? LV Diastolic Volume MOD 4C 73.3 cm??? LV Systolic Volume MOD 4C 20.6 cm??? LV Ejection Fraction MOD 4C 72.0 % LV Stroke Volume MOD 4C 52.8 cm??? LV Diastolic Length 4C 8.6 cm LV Systolic Length 4C 6.0 cm LV Diastolic Volume MOD 2C 97.8 cm??? LV Systolic Volume MOD 2C 25.8 cm??? LV Ejection Fraction MOD 2C 73.6 % LV Stroke Volume MOD 2C 72.0 cm??? LV Diastolic Length 2C 8.7 cm LV Systolic Length 2C 6.0 cm M-MODE Aortic Root Diameter MM 2.5 cm LA Systolic Diameter MM 3.7 cm LA Ao Ratio MM 1.4 MV E Point Septal Separation 0.9 cm AV Cusp Separation MM 1.4 cm DOPPLER AV Peak Velocity 131.8 cm/s AV Peak Gradient 7.0 mmHg LVOT Peak Velocity 105.2 cm/s LVOT Peak Gradient 4.4 mmHg AV Area Cont Eq pk 2.5 cm??? MV Deceleration Nelson 236.1 cm/s??? Mitral E Point Velocity 47.6 cm/s Mitral A Point Velocity 47.3 cm/s Mitral E to A Ratio 1.0 MV Deceleration Time 201.7 ms MV E' Velocity 7.8 cm/s Mitral E to MV E' Ratio 6.1 Pulmonary Vein Systolic Velocity 40.1 cm/s Pulmonary Vein Diastolic Velocit 25.2 cm/s Pulmonary Vein S/D Ratio 1.6 Pulmonary Vein A Velocity 29.4 cm/s Pulmonary Vein A to Mitral A Rat 0.6 TR Peak Velocity 128.4 cm/s TR Peak Gradient 6.6 mmHg Right Ventricular Systolic Press 11.6 mmHg PV Peak Velocity 96.5 cm/s PV Peak Gradient 3.7 mmHg FINDINGS Left Ventricle Left ventricular ejection fraction is estimated at 60-65 %. Grade 1 diastolic dysfunction. Normal basal systolic function. Right Ventricle Normal right ventricular size and function. Right Atrium Normal right atrial size. Left Atrium Normal left atrial size. Mitral Valve Mitral valve thickened. Mitral annular calcification. Trace to mild mitral regurgitation. Aortic Valve Trileaflet aortic valve. No aortic stenosis. No aortic regurgitation. Tricuspid Valve Trace to mild tricuspid regurgitation. Pulmonic Valve Structurally normal pulmonic valve. Pericardium Normal pericardium. No pericardial effusion. Aorta Normal size aortic root and proximal ascending aorta. CONCLUSIONS Normal LV systolic function. Impaired relaxation of the LV or diastole dysfunction stage I Mildly thickened mitral valve leaflets with mild mitral regurgitation Previewed by: Dr. Mayank Jackson MD (Electronically Signed) Final Date: 21 May 2022 10:40
--- NOTE | 2022-05-21 12:10 | CA ---
Exercise Stress Test Report Name: Deanna Murillo Exam Date: 05/21/2022 10:30 Exam Location: [place] Stress Ht (in): 67 Wt (lb): 165 BSA: 1.86 Ordering Phys: Mayank Jackson MD Referring Phys: BRIANNA,, Technologist: Chirag Neil Age: 42 Gender: F : 1980 Procedure CPT: Indications: CP ICD-10 Codes: Patient History: Medications: SEE CHART Meds past 24 hrs: Pretest Chest Pain: STRESS TEST Buddy Protocol Exercise Duration (min:sec): 09:[address] Depressions (mm): Angina Score: Moeller Score: Resting HR (bpm): 73 Peak HR (bpm): 169 Resting BP (mmHg): 109 / 77 Peak BP (mmHg): 127 / 76 MPHR: 177 Target HR: 150 % MPHR: 95 METS: 10.3 Total Dose: Peak Dose: Atropine: Double Product: 95296 BP Response: Stress Termination: TARGET HR REACHED/MAX EXERTION Stress Symptoms: NO SYMPTOMS Stress Summary: ECG ANALYSIS Resting ECG: Stress ECG: CONCLUSIONS Excellent exercise tolerance Normal EKG in response to exercise Dr. Mayank Jackson MD (Electronically Signed) Final Date: 21 May 2022 12:09
--- NOTE | 2022-05-22 15:21 | P.DS ---
Providers Date of admission: 05/20/22 13:45 Expected date of discharge: 05/21/22 Attending physician: Myke Meadows MD Consults: 05/20/22 13:45 Consult Physician Urgent Consulting Provider: Av Weaver Consult Reason/Comments: cp Do you want consulting provider notified?: Yes Primary care physician: Kacie Matthews Hospital Course: Final diagnosis Chest pain, possible unstable angina Myocardial infarction ruled out History of bradycardia History of multiple sclerosis history of anxiety Discharge disposition Patient is being discharged in a stable condition with guarded prognosis to home. Patient will follow-up with Dr. Matthews in the outpatient setting upon discharge. Patient is to follow-up with cardiology in the outpatient setting as scheduled. Total time taken is greater than 35 minutes. Hospital course This is a 42-year-old female who was recently admitted with left-sided chest pain that was sharp and pressure-like that was radiating to the left side as well as her shoulder. Patient had negative troponins and negative d-dimer and evaluated by cardiology recommending stress test with echo. Patient had negative stress testing and echo within normal limits and has been cleared by cardiology for discharge. 2-D echo showed an EF of 60-65% with grade 1 diastolic dysfunction with normal basal systolic function and there is a trace to mild tricuspid regurgitation present. Patient reports to feeling better and will need outpatient follow-up with primary care provider along with cardiology on discharge. Please refer to cardiology note for further HPI. Currently no reports of chest pain, shortness of breath, or palpitations. Patient is afebrile. No reports of nausea or vomiting and patient is tolerating diet. Patient will be discharged home today. Physical exam: Gen: This is a 42-year-old female who is awake, alert and oriented 3, well- developed, well-nourished HEENT: Head is atraumatic, normocephalic. Pupils equal, round. Sclerae is anicteric. NECK: Supple. No JVD. No lymphadenopathy. No thyromegaly. LUNGS: Clear to auscultation. No wheezes or rhonchi. No intercostal retractions. HEART: S1, S2 are muffled ABDOMEN: Soft. Bowel sounds are present. No masses. No tenderness. EXTREMITIES: No pedal edema. No calf tenderness. NEUROLOGICAL: Patient is awake, alert and oriented x3. Cranial nerves 2 through 12 are grossly intact. Please refer to medication reconciliation sheet for a list of medications. The impression and plan of care has been dictated by Jaki Rand, Nurse Practitioner as directed. Dr. Edvin MD I have performed a history and examination and MDM of this patient, discussed the same with the dictator, and agree with the dictator's assessment and plan as written ,documented as a scribe. Based on total visit time, I have performed more than 50% of the visit. Patient Condition at Discharge: Good Plan - Discharge Summary New Discharge Prescriptions: New Nitroglycerin Sl Tabs [Nitrostat] 0.4 mg SUBLINGUAL Q5M PRN #30 tab PRN Reason: Chest Pain Pantoprazole [Protonix] 40 mg PO AC-BRKFST #14 tab Aspirin 81 mg PO DAILY #30 tab Acetaminophen Tab [Tylenol] 650 mg PO Q4HR PRN tab PRN Reason: Fever And/ Or Pain Continue lisinopriL [Zestril] 20 mg PO DAILY clonazePAM [KlonoPIN] 0.5 mg PO HS PRN PRN Reason: Muscle Spasm amLODIPine [Norvasc] 10 mg PO DAILY Melatonin [Melatonin Chew] 7.5 mg PO HS Discharge Medication List clonazePAM [KlonoPIN] 0.5 mg PO HS PRN 08/30/20 [History] Melatonin [Melatonin Chew] 7.5 mg PO HS 05/20/22 [History] amLODIPine [Norvasc] 10 mg PO DAILY 05/20/22 [History] lisinopriL [Zestril] 20 mg PO DAILY 05/20/22 [History] Acetaminophen Tab [Tylenol] 650 mg PO Q4HR PRN tab 05/21/22 [Rx] Aspirin 81 mg PO DAILY #30 tab 05/21/22 [Rx] Nitroglycerin Sl Tabs [Nitrostat] 0.4 mg SUBLINGUAL Q5M PRN #30 tab 05/21/22 [Rx] Pantoprazole [Protonix] 40 mg PO AC-BRKFST #14 tab 05/21/22 [Rx] Follow up Appointment(s)/Referral(s): Kacie Matthews MD [Primary Care Provider] - 1-2 days Mayank Jackson MD [STAFF PHYSICIAN] - 1 Week (office will call and set up appointment) Patient Instructions/Handouts: Chest Pain (DC) Activity/Diet/Wound Care/Special Instructions: Activity Limited until follow-up Follow-up with primary care provider on discharge Follow-up cardiology outpatient Continue taking medications as prescribed Talk with cardiology about continuing a baby aspirin daily Discharge Disposition: HOME SELF-CARE
== END 2022-05-21 14:17 | disposition home or self-care (01) ==
LOC: EC 11:40 → 6NMEDSUR 13:45
PROVIDERS: ADMIT Internal Medicine; ATTEND Internal Medicine
DX: R07.89 Other chest pain (principal); G35 Multiple sclerosis; I10 Essential (primary) hypertension; R00.1 Bradycardia, unspecified; I45.10 Unspecified right bundle-branch block; I08.1 Rheumatic disorders of both mitral and tricuspid valves; R60.9 Edema, unspecified; F41.9 Anxiety disorder, unspecified; Z79.899 Other long term (current) drug therapy; Z88.5 Allergy status to narcotic agent; Z91.048 Other nonmedicinal substance allergy status; Z98.82 Breast implant status; Z98.51 Tubal ligation status; Z83.3 Family history of diabetes mellitus; Z82.49 Family history of ischemic heart disease and other diseases of the circulatory system; Z83.79 Family history of other diseases of the digestive system; Z84.89 Family history of other specified conditions
CPT/HCPCS: 99285; 36415; 94760; 93005; 93017; 93306; 85379; 80061; 80053; 80048; 82150; 83690; 83735; 84484; 85025 ×2; 85610; 85730; 71046; G0378 ×2

== ENCOUNTER → 2023-01-19 | Outpatient (CLI) | payer BC ==
[2023-01-19 15:52] LABS: T4, Free (Free Thyroxine) 1.07 ng/dL (0.80-1.80)
== END | disposition home or self-care (01) ==
LOC: LABWHC1 10:28
PROVIDERS: ATTEND Internal Medicine Interventional Cardiology
DX: I10 Essential (primary) hypertension (principal)
CPT/HCPCS: 36415; 84439; 84443

== ENCOUNTER 2024-01-25 19:25 | Observation (INO) | payer BC ==
--- NOTE | 2024-01-25 20:16 | ED ---
Abdominal Pain HPI - General Chief Complaint: Chest Pain Stated Complaint: Chest Pain/Abd Pain Time Seen by Provider: 01/25/24 19:48 Source: patient, RN notes reviewed Mode of arrival: ambulatory Limitations: no limitations - History of Present Illness Initial Comments: This is a 43-year-old female who presents to the emergency department for epigastric pain. States that it started around 1230 to 1 PM. Unsure what she was doing when it started. States that this is in the epigastric to right upper quadrant region. Pain has essentially been constant since then. Pain does not radiate. She has had chest pain before but nothing similar to this. A dditionally, states that over the last week he has had episodes where when she lays down she feels like something in her throat is pushing upwards and she cannot breathe. She has been communicating with her PCP about this and she was started on pantoprazole but has not had any relief. She also had a thyroid test ordered to be completed today. Also states that she has felt very unwell over the last week. She becomes diaphoretic and short of breath with very little activity. MD Complaint: abdominal pain - Related Data Home Medications Medication Instructions Recorded Confirmed clonazePAM [KlonoPIN] 0.5 mg PO HS PRN 08/30/20 05/20/22 Melatonin [Melatonin Chew] 7.5 mg PO HS 05/20/22 05/20/22 amLODIPine [Norvasc] 10 mg PO DAILY 05/20/22 05/20/22 lisinopriL [Zestril] 20 mg PO DAILY 05/20/22 05/20/22 Previous Rx's Medication Instructions Recorded Acetaminophen Tab [Tylenol] 650 mg PO Q4HR PRN tab 05/21/22 Aspirin 81 mg PO DAILY #30 tab 05/21/22 Nitroglycerin Sl Tabs [Nitrostat] 0.4 mg SUBLINGUAL Q5M PRN #30 tab 05/21/22 Pantoprazole [Protonix] 40 mg PO AC-BRKFST #14 tab 05/21/22 Allergies Allergy/AdvReac Type Severity Reaction Status Date / Time morphine Allergy Rash/Hives Verified 01/25/24 19:30 ketamine AdvReac Hallucinati Verified 01/25/24 19:30 ons ketorolac tromethamine AdvReac Nausea & Verified 01/25/24 19:30 [From Toradol] Vomiting paper tape Allergy Mild Rash/Hives Uncoded 01/25/24 19:30 Review of Systems ROS Statement: Those systems with pertinent positive or pertinent negative responses have been documented in the HPI. ROS Other: All systems not noted in ROS Statement are negative. Past Medical History Past Medical History: Musculoskeletal Disorder Additional Past Medical History / Comment(s): bradycardia, Multiple Sclerosis. Obstetric history: She has had 3 vaginal deliveries and 2 spontaneous abortions, cholestasis of . O+, abs neg, Rub Imm, RPR NR, Hep B neg. History of Any Multi-Drug Resistant Organisms: None Reported Past Surgical History: Tubal Ligation, Uterine Ablation Additional Past Surgical History / Comment(s): D&C, breast implants, Past Anesthesia/Blood Transfusion Reactions: No Reported Reaction Past Psychological History: Anxiety Smoking Status: Never smoker Past Alcohol Use History: Rare Past Drug Use History: None Reported - Past Family History Father Family Medical History: Diabetes Mellitus, Hypertension Additional Family Medical History / Comment(s): Father is alive at age 66 and had heart attack when 32 status post CABG. Mother Family Medical History: Hypertension Additional Family Medical History / Comment(s): Mother is alive at age 62 with history of gallstones. Brother(s) Family Medical History: No Reported History Additional Family Medical History / Comment(s): Patient has 2 brothers and one sister. Her sister has chronic workup for meningitis-type symptoms. Siblings have not been diagnosed with MS. Patient has 2 children with primary immunodeficiency. General Exam Limitations: no limitations General appearance: alert, in no apparent distress Head exam: Present: atraumatic, normocephalic, normal inspection Respiratory exam: Present: normal lung sounds bilaterally. Absent: respiratory distress, wheezes, rales, rhonchi, stridor Cardiovascular Exam: Present: regular rate, normal rhythm, normal heart sounds. Absent: systolic murmur, diastolic murmur, rubs, gallop, clicks GI/Abdominal exam: Present: soft, tenderness (RUQ and epigastric), normal bowel sounds. Absent: distended Neurological exam: Present: alert, oriented X3, CN II-XII intact Psychiatric exam: Present: normal affect, normal mood Skin exam: Present: warm, dry, intact, normal color. Absent: rash Course Vital Signs 01/25/24 01/25/24 01/25/24 19:28 22:00 23:00 Temperature 97.7 F Pulse Rate 64 53 L 52 L Respiratory 18 18 19 Rate Blood Pressure 120/83 106/65 128/75 O2 Sat by Pulse 98 100 98 Oximetry 01/26/24 01/26/24 00:00 01:00 Temperature Pulse Rate 57 L 58 L Respiratory 18 18 Rate Blood Pressure 100/70 105/67 O2 Sat by Pulse 95 96 Oximetry Medical Decision Making - Medical Decision Making This is a 43 year old female who presents to the emergency department for epigastric pain. Was pt. sent in by a medical professional or institution? @ -No Did you speak to anyone other than the patient for history? @ -No Did you review nursing and triage notes? @ -Yes, and I agree, it is accurate with regards to the patient's symptoms. Were old charts reviewed? @ -No Differential Diagnosis? @ -Differential Abdominal Pain Women: Appendicitis, Cholecystitis, diverticulosis, ischemic bowel, pancreatitis, hep atitis, UTI, gastroenteritis, AAA, incarcerated hernia, bowel obstruction, constipation, inflammatory bowel, hepatitis, peptic ulcer disease, splenic infarction, perforated viscus, vulvitis, ovarian torsion, PID, kidney stone, placenta abruption, this is not meant to be an all-inclusive list EKG interpreted by me (3pts min.)? @ -EKG interpreted by me demonstrating the following: Sinus bradycardia. Ventricular rate 55 bpm, MI interval 153 ms, QRS duration 109 ms, QTc 417 ms. X-rays interpreted by me (1pt min.)? @ -None CT interpreted by me (1pt min.)? @ -CTA of the chest obtained. My interpretation identifies no evidence of a pulmonary embolus. U/S interpreted by me (1pt. min.)? @ -Gallbladder ultrasound obtained. My interpretation identifies no evidence of cholelithiasis. What testing was considered but not performed? (CT, X-rays, U/S, labs)? Why? @ -None What meds were considered but not given? Why? @ -None Did you discuss the management of the patient with other professionals? @ -Yes, Dr. Pardo, who accepts the patient for admission. Did you reconcile home meds? @ -No Was smoking cessation discussed for >3mins.? @ -No Was critical care preformed (if so, how long)? @ -No Were there social determinants of health that impacted care today? How? (Homelessness, low income, unemployed, alcoholism, drug addiction, transportation, low edu. Level, literacy, decrease access to med. care, intermediate, rehab)? @ -No Was there de-escalation of care discussed even if they declined? (Discuss DNR or withdrawal of care, Hospice)? @ -No What co-morbidities impacted this encounter? (DM, HTN, Smoking, COPD, CAD, Cancer, CVA, Hep., AIDS, mental health diagnosis, sleep apnea, morbid obesity)? @ -None Was patient admitted / discharged? @ -Admitted. Lab work demonstrates an elevated D-dimer of 3.2 and is otherwise unremarkable. Troponin negative. Gallbladder ultrasound reveals no acute process. CTA of the chest obtained revealing no evidence of a pulmonary embolus or other acute findings. Pain in the epigastric region initially seemed like a gastritis type pain. She was given famotidine and a GI cocktail, but did not ge t any relief. Additionally, when she went to lay back she had episodes where she felt like she was unable to breathe. Staff watching the monitor were concerned that she may have gone into torsades de points rhythm for a few seconds. ED attending requested serial EKGs and these appeared to demonstrate changes. Patient admitted to medicine for chest pain. Serial troponins ordered and consult was placed for cardiology. Case discussed with ED attending Dr. Poe. Undiagnosed new problem with uncertain prognosis? @ -None Drug Therapy requiring intensive monitoring for toxicity (Heparin, Nitro, Insulin, Cardizem)? @ -None Were any procedures done? @ -None Diagnosis/symptom? @ -Chest pain, Acute EKG changes Acute, or Chronic, or Acute on Chronic? @ -Acute Uncomplicated (without systemic symptoms) or Complicated (systemic symptoms)? @ -Uncomplicated Side effects of treatment? @ -None Exacerbation, Progression, or Severe Exacerbation] @ -Not applicable Poses a threat to life or bodily function? @ -Yes, if due to ACS it can be life threatening - Lab Data Result diagrams: 01/25/24 20:09 01/25/24 20:09 Lab Results 01/25/24 01/25/24 01/25/24 Range/Units 20:09 20:09 20:09 WBC 9.9 (3.8-10.6) k/uL RBC 4.87 (3.80-5.40) m/uL Hgb 14.1 (11.4-16.0) gm/dL Hct 43.5 (34.0-46.0) % MCV 89.4 (80.0-100.0) fL MCH 29.0 (25.0-35.0) pg MCHC 32.5 (31.0-37.0) g/dL RDW 12.3 (11.5-15.5) % Plt Count 523 H (150-450) k/uL MPV 6.7 Neutrophils % 64 % Lymphocytes % 25 % Monocytes % 6 % Eosinophils % 3 % Basophils % 1 % Neutrophils # 6.3 (1.3-7.7) k/uL Lymphocytes # 2.5 (1.0-4.8) k/uL Monocytes # 0.6 (0-1.0) k/uL Eosinophils # 0.3 (0-0.7) k/uL Basophils # 0.1 (0-0.2) k/uL PT 10.6 (10.0-12.5) sec INR 1.0 (<1.2) APTT 26.0 (22.0-30.0) sec D-Dimer 3.20 H (<0.60) mg/L FEU Sodium 136 L (137-145) mmol/L Potassium 4.0 (3.5-5.1) mmol/L Chloride 106 (98-107) mmol/L Carbon Dioxide 25 (22-30) mmol/L Anion Gap 5 mmol/L BUN 19 H (7-17) mg/dL Creatinine 0.59 (0.52-1.04) mg/dL Est GFR (CKD-EPI)AfAm >90 (>60 ml/min/1.73 sqM) Est GFR (CKD-EPI)NonAf >90 (>60 ml/min/1.73 sqM) Glucose 121 H (74-99) mg/dL Plasma Lactic Acid Yayo (0.7-2.0) mmol/L Calcium 9.5 (8.4-10.2) mg/dL Magnesium 2.2 (1.6-2.3) mg/dL Total Bilirubin 0.5 (0.2-1.3) mg/dL AST 23 (14-36) U/L ALT 22 (4-34) U/L Alkaline Phosphatase 85 (38-126) U/L Troponin I (0.000-0.034) ng/mL Total Protein 6.5 (6.3-8.2) g/dL Albumin 4.1 (3.5-5.0) g/dL Amylase 42 (30-110) U/L Lipase 55 (23-300) U/L TSH (0.465-4.680) mIU/L 01/25/24 01/25/24 01/25/24 Range/Units 20:09 20:09 20:09 WBC (3.8-10.6) k/uL RBC (3.80-5.40) m/uL Hgb (11.4-16.0) gm/dL Hct (34.0-46.0) % MCV (80.0-100.0) fL MCH (25.0-35.0) pg MCHC (31.0-37.0) g/dL RDW (11.5-15.5) % Plt Count (150-450) k/uL MPV Neutrophils % % Lymphocytes % % Monocytes % % Eosinophils % % Basophils % % Neutrophils # (1.3-7.7) k/uL Lymphocytes # (1.0-4.8) k/uL Monocytes # (0-1.0) k/uL Eosinophils # (0-0.7) k/uL Basophils # (0-0.2) k/uL PT (10.0-12.5) sec INR (<1.2) APTT (22.0-30.0) sec D-Dimer (<0.60) mg/L FEU Sodium (137-145) mmol/L Potassium (3.5-5.1) mmol/L Chloride (98-107) mmol/L Carbon Dioxide (22-30) mmol/L Anion Gap mmol/L BUN (7-17) mg/dL Creatinine (0.52-1.04) mg/dL Est GFR (CKD-EPI)AfAm (>60 ml/min/1.73 sqM) Est GFR (CKD-EPI)NonAf (>60 ml/min/1.73 sqM) Glucose (74-99) mg/dL Plasma Lactic Acid Yayo 0.9 (0.7-2.0) mmol/L Calcium (8.4-10.2) mg/dL Magnesium (1.6-2.3) mg/dL Total Bilirubin (0.2-1.3) mg/dL AST (14-36) U/L ALT (4-34) U/L Alkaline Phosphatase (38-126) U/L Troponin I <0.012 (0.000-0.034) ng/mL Total Protein (6.3-8.2) g/dL Albumin (3.5-5.0) g/dL Amylase (30-110) U/L Lipase (23-300) U/L TSH 2.190 (0.465-4.680) mIU/L - Radiology Data Radiology results: report reviewed, image reviewed Disposition Clinical Impression: Chest pain, Acute electrocardiogram changes Disposition: ADMITTED IP TO THIS HOSP
[2024-01-25] MEDS: FAMOTIDINE 20 MG/2 ML VIAL IV STA (20:26)
[2024-01-25] MEDS: HYDROmorphone 1 MG/ML 1 ML SYRINGE IVP STA ×2 (20:27→22:48)
[2024-01-25] MEDS: SODIUM CHLORIDE 0.9% 1,000 ML IV STA (20:27)
[2024-01-25 20:31] LABS: Basophils # (A) 0.1 k/uL (0-0.2); Basophils % (A) 1 %; Eosinophils # (A) 0.3 k/uL (0-0.7); Eosinophils % (A) 3 %; HCT 43.5 % (34.0-46.0); HGB 14.1 gm/dL (11.4-16.0); Lymphocytes # (A) 2.5 k/uL (1.0-4.8); Lymphocytes % (A) 25 %; MCHC 32.5 g/dL (31.0-37.0); MCV 89.4 fL (80.0-100.0); Mean Platelet Volume 6.7; Monocytes # (A) 0.6 k/uL (0-1.0); Monocytes % (A) 6 %; Neutrophils # (A) 6.3 k/uL (1.3-7.7); Neutrophils % (A) 64 %; Platelet Count 523 k/uL (150-450); RBC 4.87 m/uL (3.80-5.40); RDW 12.3 % (11.5-15.5); WBC 9.9 k/uL (3.8-10.6)
[2024-01-25 20:43] LABS: Prothrombin Time 10.6 sec (10.0-12.5)
[2024-01-25 20:47] LABS: ALT 22 U/L (4-34); AST 23 U/L (14-36); African American GFR (CKD) >90 (>60 ml/min/1.73 sqM); Albumin 4.1 g/dL (3.5-5.0); Alkaline Phosphatase 85 U/L (38-126); Amylase 42 U/L (30-110); Anion Gap 5 mmol/L; Blood Urea Nitrogen 19 mg/dL (7-17); Calcium 9.5 mg/dL (8.4-10.2); Carbon Dioxide 25 mmol/L (22-30); Chloride 106 mmol/L (98-107); Glucose 121 mg/dL (74-99); Lipase 55 U/L (23-300); Magnesium 2.2 mg/dL (1.6-2.3); Non-African American GFR(CKD) >90 (>60 ml/min/1.73 sqM); Sodium 136 mmol/L (137-145); Total Bilirubin 0.5 mg/dL (0.2-1.3); Total Protein 6.5 g/dL (6.3-8.2)
--- NOTE | 2024-01-25 21:12 | US ---
EXAMINATION TYPE: US gallbladder DATE OF EXAM: 01/25/2024 COMPARISON: NONE CLINICAL INDICATION: Female, 43 years old with history of Epigastric and RUQ pain; RUQ pain today. No N/V TECHNIQUE: Grayscale and color Doppler imaging of the right upper quadrant was performed. FINDINGS: EXAM MEASUREMENTS: Liver Length: 15.5 cm Gallbladder Wall: 0.2 cm CBD: Obscured by overlying gas Right Kidney: 11.6 x 4.5 x 4.9 cm [place] [employer] NOTES:Very limited due to overlying bowel gas, intercostal views used Pancreas: Obscured by bowel gas Liver: Visualized portions appear wnl, intercostal views used. Limited by rib shadows Gallbladder: wnl as best visualized intercostally Evidence for sonographic Dillard's sign: No CBD: Obscured by overlying bowel gas Right Kidney: wnl as best seen IMPRESSION: No acute abnormality in the visualized right upper quadrant. [facility], , 01/25/2024 9:10 PM
--- NOTE | 2024-01-25 21:32 | CT ---
EXAMINATION TYPE: CT chest angio for PE DATE OF EXAM: 01/25/2024 9:23 PM COMPARISON: Previous CT chest Study 12/23/2016. CLINICAL INDICATION: Female, 43 years old with history of Epigastric pain, elevated d-dimer; upper ep igastric pain, chest pain, pos ddimer TECHNIQUE/CONTRAST: CTA scan of the thorax is performed with IV Contrast, patient injected with 100ml mL of Isovue 370, M IP images are created and reviewed these are created on a separate workstation.. CT DLP: 377.1 mGycm, Automated exposure control for dose reduction was used. FINDINGS: Pulmonary Artery: There is no evidence for a filling defect within the pulmonary vasculature to sugge st acute pulmonary embolism. The pulmonary artery is of normal size. Lungs/Pleura: No evidence of focal consolidation, pleural effusion or pneumothorax. Airway: Large airways are patent. Heart: Heart is within normal limits for size. Vasculature: No evidence of aortic aneurysm. Mediastinum: No gross evidence of adenopathy. Musculoskeletal: No acute osseous abnormalities bilateral breast implants. Soft Tissues/lymph nodes: Unremarkable. Lower neck: No significant findings. Upper Abdomen: No significant findings. IMPRESSION: No evidence of acute pulmonary embolism or acute pulmonary pathology. [facility], , 01/25/2024 9:30 PM
[2024-01-25] MEDS: MAG HYDROX/AL HYDROX/SIMETH 30 ML, HYOSCYAMINE ELIXIR 10 ML, LIDOCAINE VISCOUS 2% 10 ML PO STA (22:13)
[2024-01-25] MEDS: LORazepam 2 MG/ML INJ IV STA (23:26)
[2024-01-26] MEDS ORDERED: HYDROcodone/APAP 5-325MG 1 EACH TAB PO PRN (00:34)
[2024-01-26] MEDS ORDERED: ACETAMINOPHEN TAB 325 MG TAB PO PRN (00:34)
[2024-01-26] MEDS ORDERED: NALOXONE 0.4 MG/ML 1 ML VIAL IV PRN (00:34)
[2024-01-26] MEDS: HYDROmorphone 1 MG/ML 1 ML SYRINGE IVP PRN (02:03)
[2024-01-26] MEDS: ONDANSETRON 4 MG/2 ML VIAL IVP PRN ×2 (02:05→10:32)
[2024-01-26] MEDS: PANTOPRAZOLE 40 MG/10 ML VIAL IV SCH (07:33)
--- NOTE | 2024-01-26 09:54 | P.CRDCN ---
History of Present Illness Consult date: 01/26/24 Consult reason: chest pain History of present illness: This is a 43-year-old female patient of Dr. Jackson with past medical history of hypertension and hypertensive cardiovascular disease, atrial tachycardia, nonsustained ventricular tachycardia and PVCs. We have been asked to evaluate the patient for chest pain. Patient states that she had onset yesterday of chest pain that she has never had before. Prior to that for the past 1-1/2 weeks she has been having some sweating, shortness of breath that is worse with exertion. She also has epigastric pain and tenderness. She denies having any palpitations, no dizziness, no syncopal episodes, no claudication. No lower extremity edema. She does have some difficulty lying flat with shortness of breath developing and also that she feels a lump in her throat when she lays flat. No history of CVA or stroke. She does not drink caffeine and she has rare alcohol intake. Now her pain is in the epigastric region and she denies chest pain. Epigastric pain does radiate to the right upper quadrant. Her symptoms do seem to be worse with exertion. Discussed results of testing that she has nonspecific EKG changes and recommended a stress test at this time the patient is willing to go forward with this today. Blood pressure 122/52, heart rate 59, pulse ox 98% on room air. -EKG: Sinus bradycardia with nonspecific ST changes -CTA of the chest: No evidence of PE or acute pulmonary pathology. -Gallbladder ultrasound: No acute abnormality visualized in the right upper quadrant. -Laboratory studies: WBC 9.9, hemoglobin 14.1, platelet count 523. D-dimer 3.2. Troponin negative x 3. Sodium 136, potassium 4, BUN 19 and creatinine 0.59. TSH 2.19. -Home cardiac medications: Amlodipine 10 mg daily, Lasix 20 mg daily. -Cardiac event monitor 01/19/2023 - 02/17/2023 revealed baseline of sinus bradycardia with rate of 55 bpm. 14 stable events. No critical, no serious events -Echocardiogram performed 05/21/2022: Normal LV systolic function. Impaired relaxation of the LV or diastole dysfunction stage I. Mildly thickened mitral valve leaflets with mild mitral regurgitation. -Exercise stress test performed 05/21/2022: Excellent exercise tolerance. Normal EKG and response to exercise. Review Of Systems: At the time of my exam: CONSTITUTIONAL: Denies fever or chills. HEENT: Denies blurred vision, vision changes, or eye pain. Denies hemoptysis CARDIOVASCULAR: Denies chest pain. Denies orthopnea. Denies PND. Denies palpitations RESPIRATORY: Denies shortness of breath. GASTROINTESTINAL: Reports abdominal pain. Denies nausea or vomiting. HEMATOLOGIC: Denies bleeding disorders. GENITOURINARY: Denies any blood in urine. SKIN: Denies puritis. Denies rash. Physical examination: Gen: This is a 43-year-old female is intermittently tearful during examination VS: reviewed HEENT: Head is atraumatic, normocephalic. Pupils equal, round. Sclerae is anicteric. NECK: Supple. No JVD. No carotid bruit. LUNGS: Clear to auscultation. No wheezes or rhonchi. No intercostal retract ions. HEART: Regular rate and rhythm. No murmur. ABDOMEN: Soft epigastric tenderness. EXTREMITIES: No pedal edema. No calf tenderness. NEUROLOGICAL: Patient is awake, alert and oriented x3. Assessment: Atypical chest pain, acute coronary syndrome ruled out Epigastric pain Sweats and shortness of breath with exertion Hypertension and hypertensive cardiovascular disease Atrial tachycardia Nonsustained ventricular tachycardia Plan: Resume patient's home cardiac medications, hold beta-charu this morning Scheduled patient for stress echocardiogram today Obtain 2-D echocardiogram and Doppler study to assess cardiac structure and function Further recommendations to follow based upon results of above testing Thank you kindly for this consultation. Nurse practitioner note has been reviewed, I agree with documented findings and plan of care. Patient was seen and examined. Past Medical History Past Medical History: Musculoskeletal Disorder Additional Past Medical History / Comment(s): bradycardia, Multiple Sclerosis. Obstetric history: She has had 3 vaginal deliveries and 2 spontaneous abortions, cholestasis of . O+, abs neg, Rub Imm, RPR NR, Hep B neg. History of Any Multi-Drug Resistant Organisms: None Reported Past Surgical History: Tubal Ligation, Uterine Ablation Additional Past Surgical History / Comment(s): D&C, breast implants, Past Anesthesia/Blood Transfusion Reactions: No Reported Reaction Past Psychological History: Anxiety Smoking Status: Never smoker Past Alcohol Use History: Rare Additional Past Alcohol Use History / Comment(s): patient is a lifelong nonsmoker. No illicit drug use. Occasional alcohol use. She has a mother of 7 children with 3 being stepchildren. Past Drug Use History: None Reported - Past Family History Father Family Medical History: Diabetes Mellitus, Hypertension Additional Family Medical History / Comment(s): Father is alive at age 66 and had heart attack when 32 status post CABG. Mother Family Medical History: Hypertension Additional Family Medical History / Comment(s): Mother is alive at age 62 with history of gallstones. Brother(s) Family Medical History: No Reported History Additional Family Medical History / Comment(s): Patient has 2 brothers and one sister. Her sister has chronic workup for meningitis-type symptoms. Siblings have not been diagnosed with MS. Patient has 2 children with primary immunodeficiency. Medications and Allergies Home Medications Medication Instructions Recorded Confirmed Type Furosemide [Lasix] 20 mg PO DAILY 01/26/24 01/26/24 History Omeprazole [PriLOSEC] 20 mg PO DAILY 01/26/24 01/26/24 History amLODIPine [Norvasc] 10 mg PO DAILY 01/26/24 01/26/24 History Allergies Allergy/AdvReac Type Severity Reaction Status Date / Time amlodipine [From Norvasc] Allergy Swelling Verified 01/26/24 07:41 morphine Allergy Rash/Hives Verified 01/26/24 07:41 ketamine AdvReac Hallucinati Verified 01/26/24 07:41 ons ketorolac tromethamine AdvReac Nausea & Verified 01/26/24 07:41 [From Toradol] Vomiting paper tape Allergy Mild Rash/Hives Uncoded 01/26/24 07:41 Physical Exam Vitals: Vital Signs Temp Pulse Resp BP Pulse Ox 01/26/24 06:46 97.8 F 53 L 16 101/67 94 L 01/26/24 05:04 56 L 22 114/82 98 01/26/24 01:00 58 L 18 105/67 96 01/26/24 00:00 57 L 18 100/70 95 01/25/24 23:00 52 L 19 128/75 98 01/25/24 22:00 53 L 18 106/65 100 01/25/24 19:28 97.7 F 64 18 120/83 98 Intake and Output 01/25/24 01/26/24 01/26/24 22:59 06:59 14:59 Other: Weight 88.451 kg 88.451 kg Results 01/25/24 20:09 01/25/24 20:09 Cardiac Enzymes 01/25/24 01/25/24 01/26/24 Range/Units 20:09 20:09 02:42 AST 23 (14-36) U/L Troponin I <0.012 <0.012 (0.000-0.034) ng/mL Coagulation 01/25/24 Range/Units 20:09 PT 10.6 (10.0-12.5) sec APTT 26.0 (22.0-30.0) sec CBC 01/25/24 Range/Units 20:09 WBC 9.9 (3.8-10.6) k/uL RBC 4.87 (3.80-5.40) m/uL Hgb 14.1 (11.4-16.0) gm/dL Hct 43.5 (34.0-46.0) % Plt Count 523 H (150-450) k/uL Comprehensive Metabolic Panel 01/25/24 Range/Units 20:09 Sodium 136 L (137-145) mmol/L Potassium 4.0 (3.5-5.1) mmol/L Chloride 106 (98-107) mmol/L Carbon Dioxide 25 (22-30) mmol/L BUN 19 H (7-17) mg/dL Creatinine 0.59 (0.52-1.04) mg/dL Glucose 121 H (74-99) mg/dL Calcium 9.5 (8.4-10.2) mg/dL AST 23 (14-36) U/L ALT 22 (4-34) U/L Alkaline Phosphatase 85 (38-126) U/L Total Protein 6.5 (6.3-8.2) g/dL Albumin 4.1 (3.5-5.0) g/dL Current Medications Generic Name Dose Route Start Last Admin Trade Name Freq PRN Reason Stop Dose Admin Acetaminophen 650 mg 01/26/24 00:34 Acetaminophen Tab 325 Mg Tab PO Q6HR PRN Mild Pain or Fever > 100.5 Hydrocodone Bitart/Acetaminophen 1 each 01/26/24 00:34 Hydrocodone/Apap 5-325mg 1 Each Tab PO Q4HR PRN Moderate Pain (Scale 4 to 6) Hydromorphone HCl 1 mg 01/26/24 00:34 01/26/24 04:58 Hydromorphone 1 Mg/Ml 1 Ml Syringe IVP 1 mg Q3HR PRN Administration Severe Pain (Scale 7 to 10) Naloxone HCl 0.2 mg 01/26/24 00:34 Naloxone 0.4 Mg/Ml 1 Ml Vial IV Q2M PRN Opioid Reversal Ondansetron HCl 4 mg 01/26/24 00:34 01/26/24 02:05 Ondansetron 4 Mg/2 Ml Vial IVP 4 mg Q8HR PRN Administration Nausea And Vomiting Pantoprazole Sodium 40 mg 01/26/24 09:00 01/26/24 07:33 Pantoprazole 40 Mg/10 Ml Vial IV 40 mg DAILY VIJAY Administration Intake and Output 01/25/24 01/26/24 01/26/24 22:59 06:59 14:59 Other: Weight 88.451 kg 88.451 kg Patient Weight 01/27/24 06:59 Weight 88.451 kg 01/25/24 20:09 01/25/24 20:09
[2024-01-26] MEDS: FUROSEMIDE 20 MG TAB PO SCH (10:32)
--- NOTE | 2024-01-26 11:08 | CA ---
Stress Echo Report Deanna Murillo Age: 43 Gender: F : 1980 Exam Date: 01/26/2024 09:24 Exam Location: [place] [facility] Ht (in): 67 Wt (lb): 195 Ordering Physician: Saida Jama Referring Physician: [id number] Associate: YASIR, Technologist Procedure CPT: Indication: Chest Pain ICD-9 Codes: Rhythm: Patient History: Cardiac Medications: SEE CHART Medications in past 24 hours: Contrast: N/A Stress Results Protocol: Buddy Total dose(mL): NA Exercise Duration (min:sec): 8:[address] Depression (mm): Angina Score: Moeller Score: METS: 9.5 Resting HR: 71 Resting BP: 100 / 60 Peak HR: 152 Peak BP: 149 / 71 Max Predicted HR: 176 86 % Max Predicted HR Target HR: 150 Double Product: 10992 Stress Summary: BP Response: Reason for Termination: Reached target heart rate or work-load Cardiac Symptoms: NO SYMPTOMS ECG Analysis Resting ECG: Normal sinus rhythm, normal ECG Stress ECG: No abnormal ST/T wave changes with exercise Arrhythmia: None Echo Analysis Resting Echo: Normal resting echocardiogram. Peak Echo Analysis: Normal wall thickening and motion at peak exercise MEASUREMENTS (Male/Female) Normal Values CONCLUSIONS 1. Good exercise tolerance with normal electrocardiographic response to exercise 2. Normal stress echocardiogram with no evidence of stress- induced ischemia Dr. Khushbu Manzo MD (Electronically Signed) Final Date: 26 January 2024 11:07
[2024-01-26] MEDS: HYDROmorphone 0.5 MG/0.5 ML SYRINGE IVP PRN ×2 (11:21→13:33)
--- NOTE | 2024-01-26 13:27 | CA ---
Transthoracic Echo Report Name: Deanna Murillo Age: 43 Gender: F : 1980 Exam Date: 01/26/2024 09:57 Exam Location: [facility] [facility] Ht (in): 67 Wt (lb): 195 Ordering Physician: Saida Jama Attending/Referring Phys: [id number], [employer] Sales Leader Flory Saini RDCS Procedure CPT: Indications: LVF Cardiac Hx: Technical Quality: Good Contrast 1: Total Dose (mL): Contrast 2: Total Dose (mL): MEASUREMENTS (Male / Female) Normal Values 2D ECHO LV Diastolic Diameter PLAX 4.7 cm 4.2 - 5.9 / 3.9 - 5.3 cm LV Systolic Diameter PLAX 3.3 cm IVS Diastolic Thickness 0.9 cm 0.6 - 1.0 / 0.6 - 0.9 cm LVPW Diastolic Thickness 0.9 cm 0.6 - 1.0 / 0.6 - 0.9 cm LV Relative Wall Thickness 0.4 LVOT Diameter 1.9 cm Aortic Root Diameter 2.9 cm LV Diastolic Volume MOD BP 118.3 cm??? 67 - 155 / 56 - 104 cm??? LV Systolic Volume MOD BP 49.3 cm??? 22 - 58 / 19 - 49 cm??? LV Ejection Fraction MOD BP 58.3 % >= 55 % LV Cardiac Index MOD BP 2465.0 cm???/min???m??? LV Diastolic Volume MOD 4C 117.8 cm??? LV Systolic Volume MOD 4C 43.2 cm??? LV Ejection Fraction MOD 4C 63.4 % LV Cardiac Index MOD 4C 2666.9 cm???/min???m??? LV Diastolic Length 4C 8.4 cm LV Systolic Length 4C 6.6 cm LV Diastolic Volume MOD 2C 118.3 cm??? LV Systolic Volume MOD 2C 53.0 cm??? LV Ejection Fraction MOD 2C 55.2 % LV Cardiac Index MOD 2C 2333.4 cm???/min???m??? LV Diastolic Length 2C 8.4 cm LV Systolic Length 2C 7.2 cm LA Volume 56.3 cm??? 18 - 58 / 22 - 52 cm??? LA Volume Index 27.2 cm???/m??? 16 - 28 cm???/m??? Ascending Aorta Diameter 3.0 cm DOPPLER AV Peak Velocity 148.7 cm/s AV Peak Gradient 8.8 mmHg AV Mean Velocity 98.0 cm/s AV Mean Gradient 4.5 mmHg AV Velocity Time Integral 32.3 cm LVOT Peak Velocity 125.1 cm/s LVOT Peak Gradient 6.3 mmHg LVOT Velocity Time Integral 27.2 cm LVOT Stroke Volume 77.8 cm??? LVOT Stroke Volume Index 38.9 ml/m??? LVOT Cardiac Index 2780.2 cm???/min???m??? AV Area Cont Eq vti 2.4 cm??? AV Area Cont Eq pk 2.4 cm??? MV Area PHT 3.5 cm??? Mitral E Point Velocity 71.6 cm/s Mitral A Point Velocity 59.9 cm/s Mitral E to A Ratio 1.2 MV Deceleration Time 214.7 ms TR Peak Velocity 227.9 cm/s TR Peak Gradient 20.8 mmHg Right Atrial Pressure 5.0 mmHg Pulmonary Artery Systolic Pressu 25.8 mmHg Right Ventricular Systolic Press 25.8 mmHg PV Peak Velocity 87.0 cm/s PV Peak Gradient 3.0 mmHg FINDINGS Left Ventricle Left ventricular ejection fraction is estimated at 55-60 %. Moderately increased left ventricular diastolic volume. Left ventricular wall thickness normal. No obvious regional wall motion abnormalities. Right Ventricle Normal right ventricular size and function. Right ventricular systolic pressure within normal limits. Right Atrium Normal right atrial size. Left Atrium Mildly increased left atrial volume. Mitral Valve Structurally normal mitral valve. No evidence for mitral valve prolapse. No mitral stenosis. Mild mitral regurgitation. Aortic Valve Trileaflet aortic valve. No aortic valve stenosis or regurgitation. Tricuspid Valve Structurally normal tricuspid valve. No tricuspid stenosis. Mild tricuspid regurgitation. Pulmonic Valve Pulmonic valve not well visualized. No pulmonic stenosis. Pericardium No pericardial effusion. Aorta Normal size aortic root and proximal ascending aorta. CONCLUSIONS 1. Normal left ventricular size and systolic function 2. Mild mitral and tricuspid regurgitation Previewed by: Dr. Khushbu Manzo MD (Electronically Signed) Final Date: 26 January 2024 13:26
--- NOTE | 2024-01-26 13:33 | P.GSCN ---
History of Present Illness Consult date: 01/26/24 History of present illness: CHIEF COMPLAINT: Epigastric abdominal pain HISTORY OF PRESENT ILLNESS: This is a 43-year-old female who presented to the hospital with complaints of epigastric abdominal pain that started about 1230 yesterday afternoon. Patient reports that she had some [place] fries for breakfast earlier in the morning. Otherwise had not eaten. She reports the pain was very severe and came into the ER for further evaluation. She also reports that she has been having some difficulty with swallowing over the last 1 to 2 weeks. Patient reports that when she is lying flat she feels like something sticking in her throat. She denies any heartburn. She does report hoarseness. She has never had an EGD before. Patient denies any smoking history or alcohol use. Patient was also seen evaluated by cardiology service regarding the chest pain epigastric pain. They did a stress echo which was normal. PAST MEDICAL HISTORY: Multiple sclerosis, anxiety PAST SURGICAL HISTORY: Tubal ligation, uterine ablation MEDICATIONS: See below ALLERGIES: See below SOCIAL HISTORY: No illicit drug use. REVIEW OF SYSTEMS: CONSTITUTIONAL: Denies fever or chills. HEENT: Denies blurred vision, vision changes, or eye pain. Denies hemoptysis CARDIOVASCULAR: Denies chest pain or pressure. RESPIRATORY: No shortness of breath. GASTROINTESTINAL: See HPI for pertinent findings HEMATOLOGIC: Denies bleeding disorders. GENITOURINARY: Denies any blood in urine or increased urinary frequency. SKIN: Denies pruitis. Denies rash. PHYSICAL EXAM: VITAL SIGNS: Reviewed GENERAL: Well-developed in no acute distress. HEENT: No sclera icterus. Extraocular movements grossly intact. Moist buccal mucosa. Head is atraumatic, normocephalic. No nasal drainage. ABDOMEN: Soft. Nondistended. Tenderness with palpation to the epigastric area. No rebound tenderness. No guarding. NEUROLOGIC: Alert and oriented. Cranial nerves II through XII grossly intact. LABORATORY DATA: WBC is 9.9 Hgb 14.1 platelets 523 Sodium is 136 potassium is 4.0 creatinine 0.59 Troponin negative x 3 lipase 55 LFTs are normal IMAGING: Gallbladder ultrasound reports no acute abnormality Chest CTA no evidence of PE ASSESSMENT: 1. Epigastric abdominal pain 2. Dysphagia PLAN: -Patient scheduled for EGD tomorrow with Dr. Willis -WENCESLAO scan ordered to rule out any gallbladder dysfunction -Patient can have full liquid diet today and then n.p.o. after midnight Physician Check Embosser note has been reviewed by physician. Signing provider agrees with the documented findings, assessment, and plan of care. Past Medical History Past Medical History: Musculoskeletal Disorder Additional Past Medical History / Comment(s): bradycardia, Multiple Sclerosis. Obstetric history: She has had 3 vaginal deliveries and 2 spontaneous abortions, cholestasis of . O+, abs neg, Rub Imm, RPR NR, Hep B neg. History of Any Multi-Drug Resistant Organisms: None Reported Past Surgical History: Tubal Ligation, Uterine Ablation Additional Past Surgical History / Comment(s): D&C, breast implants, Past Anesthesia/Blood Transfusion Reactions: No Reported Reaction Past Psychological History: Anxiety Smoking Status: Never smoker Past Alcohol Use History: Rare Additional Past Alcohol Use History / Comment(s): patient is a lifelong nonsmoker. No illicit drug use. Occasional alcohol use. She has a mother of 7 children with 3 being stepchildren. Past Drug Use History: None Reported - Past Family History Father Family Medical History: Diabetes Mellitus, Hypertension Additional Family Medical History / Comment(s): Father is alive at age 66 and had heart attack when 32 status post CABG. Mother Family Medical History: Hypertension Additional Family Medical History / Comment(s): Mother is alive at age 62 with history of gallstones. Brother(s) Family Medical History: No Reported History Additional Family Medical History / Comment(s): Patient has 2 brothers and one sister. Her sister has chronic workup for meningitis-type symptoms. Siblings have not been diagnosed with MS. Patient has 2 children with primary immunodeficiency. Medications and Allergies Home Medications Medication Instructions Recorded Confirmed Type Furosemide [Lasix] 20 mg PO DAILY 01/26/24 01/26/24 History Omeprazole [PriLOSEC] 20 mg PO DAILY 01/26/24 01/26/24 History amLODIPine [Norvasc] 10 mg PO DAILY 01/26/24 01/26/24 History Allergies Allergy/AdvReac Type Severity Reaction Status Date / Time amlodipine [From Norvasc] Allergy Swelling Verified 01/26/24 07:41 morphine Allergy Rash/Hives Verified 01/26/24 07:41 ketamine AdvReac Hallucinati Verified 01/26/24 07:41 ons ketorolac tromethamine AdvReac Nausea & Verified 01/26/24 07:41 [From Toradol] Vomiting paper tape Allergy Mild Rash/Hives Uncoded 01/26/24 07:41 Surgical - Exam Vital Signs Temp Pulse Resp BP Pulse Ox 97.7 F 64 18 120/83 98 01/25/24 19:28 01/25/24 19:28 01/25/24 19:28 01/25/24 19:28 01/25/24 19:28 Results - Labs 01/25/24 20:09 01/25/24 20:09 Abnormal Lab Results - Last 24 Hours (Table) 01/25/24 01/25/24 01/25/24 Range/Units 20:09 20:09 20:09 Plt Count 523 H (150-450) k/uL D-Dimer 3.20 H (<0.60) mg/L FEU Sodium 136 L (137-145) mmol/L BUN 19 H (7-17) mg/dL Glucose 121 H (74-99) mg/dL Diabetes panel 01/25/24 Range/Units 20:09 Sodium 136 L (137-145) mmol/L Potassium 4.0 (3.5-5.1) mmol/L Chloride 106 (98-107) mmol/L Carbon Dioxide 25 (22-30) mmol/L BUN 19 H (7-17) mg/dL Creatinine 0.59 (0.52-1.04) mg/dL Glucose 121 H (74-99) mg/dL Calcium 9.5 (8.4-10.2) mg/dL AST 23 (14-36) U/L ALT 22 (4-34) U/L Alkaline Phosphatase 85 (38-126) U/L Total Protein 6.5 (6.3-8.2) g/dL Albumin 4.1 (3.5-5.0) g/dL Thyroid panel 01/25/24 Range/Units 20:09 TSH 2.190 (0.465-4.680) mIU/L Calcium panel 01/25/24 Range/Units 20:09 Calcium 9.5 (8.4-10.2) mg/dL Albumin 4.1 (3.5-5.0) g/dL Pituitary panel 01/25/24 01/25/24 Range/Units 20:09 20:09 Sodium 136 L (137-145) mmol/L Potassium 4.0 (3.5-5.1) mmol/L Chloride 106 (98-107) mmol/L Carbon Dioxide 25 (22-30) mmol/L BUN 19 H (7-17) mg/dL Creatinine 0.59 (0.52-1.04) mg/dL Glucose 121 H (74-99) mg/dL Calcium 9.5 (8.4-10.2) mg/dL TSH 2.190 (0.465-4.680) mIU/L Adrenal panel 01/25/24 Range/Units 20:09 Sodium 136 L (137-145) mmol/L Potassium 4.0 (3.5-5.1) mmol/L Chloride 106 (98-107) mmol/L Carbon Dioxide 25 (22-30) mmol/L BUN 19 H (7-17) mg/dL Creatinine 0.59 (0.52-1.04) mg/dL Glucose 121 H (74-99) mg/dL Calcium 9.5 (8.4-10.2) mg/dL Total Bilirubin 0.5 (0.2-1.3) mg/dL AST 23 (14-36) U/L ALT 22 (4-34) U/L Alkaline Phosphatase 85 (38-126) U/L Total Protein 6.5 (6.3-8.2) g/dL Albumin 4.1 (3.5-5.0) g/dL
--- NOTE | 2024-01-26 14:39 | P.HPIM ---
History of Present Illness H&P Date: 01/26/24 This is a 43-year-old female with medical history significant for bradycardia, multiple sclerosis, hypertension. Patient came into the hospital for epigastric pain. Patient states that the pain is in her epigastric right upper quadrant region and has been constant with no radiation. She did have worsening GERD symptoms last week and was given a trial of omeprazole by her family doctor without improvement in her symptoms. Patient also states when she is lying flat she feels a heaviness in her throat and like she cannot breath. She comes in to today short of breath with very little activity. D Dimer was positive at 3.20. Chest CT angiography was negative for acute findings and no evidence of pulmonary embolism. Gallbladder ultrasound reveals no acute abnormality of the right upper quadrant. Cardiology was consulted. Troponin levels have been negative and patient had a negative stress echo. Echocardiogram reveals normal LV size and systolic function. Mild antral and tricuspid regurgitation. REVIEW OF SYSTEMS: CONSTITUTIONAL: No fever, no malaise, no fatigue. HEENT: No recent visual problems or hearing problems. Denied any sore throat. CARDIOVASCULAR: No chest pain, orthopnea, PND, no palpitations, no syncope. PULMONARY: No shortness of breath, no cough, no hemoptysis. GASTROINTESTINAL: No diarrhea, no nausea, no vomiting, no abdominal pain. NEUROLOGICAL: No headaches, no weakness, no numbness. HEMATOLOGICAL: Denies any bleeding or petechiae. GENITOURINARY: Denies any burning micturition, frequency, or urgency. MUSCULOSKELETAL/RHEUMATOLOGICAL: Denies any joint pain, swelling, or any muscle pain. ENDOCRINE: Denies any polyuria or polydipsia. The rest of the 14-point review of systems is negative. PHYSICAL EXAMINATION: GENERAL: The patient is alert and oriented x3, not in any acute distress. Well developed, well nourished. HEENT: Pupils are round and equally reacting to light. EOMI. No scleral icterus. No conjunctival pallor. Normocephalic, atraumatic. No pharyngeal erythema. No thyromegaly. CARDIOVASCULAR: S1 and S2 present. No murmurs, rubs, or gallops. PULMONARY: Chest is clear to auscultation, no wheezing or crackles. ABDOMEN: Soft, nontender, nondistended, normoactive bowel sounds. No palpable organomegaly. MUSCULOSKELETAL: No joint swelling or deformity. EXTREMITIES: No cyanosis, clubbing, or pedal edema. NEUROLOGICAL: Gross neurological examination did not reveal any focal deficits. SKIN: No rashes. Assessment and plan Atypical chest pain, ACS rule out Epigastric pain likely gastritis with dysphagia History of hypertension was on amlodipine which she stopped taking due to peripheral edema History of nonsustained vtach and atrial tachycardia Multiple sclerosis Hx of sinus bradycardia GI prophylaxis IV protonix Plan Resume appropriate home medications Cardiac work up has been completed; pending further recommendations stress echo and echocardiogram are completed General surgery was consulted for the epigastric pain and planning for HIDA scan and upper endoscopy. Repeat BMP in the AM Continue cardiac telemetry. Continue supportive care/pain management Full liquid diet and NPO after midnight. The impression and plan of care has been dictated by Liza Johnson Nurse Practitioner as directed. Dr. Kenyon MD I have performed a history and physical examination and medical decision making of this patient, discussed the same with the dictator, and agree with the dictators assessment and plan as written, documented as a scribe. Based on total visit time, I have performed more than 50% of this visit. Past Medical History Past Medical History: Musculoskeletal Disorder Additional Past Medical History / Comment(s): bradycardia, Multiple Sclerosis. Obstetric history: She has had 3 vaginal deliveries and 2 spontaneous abortions, cholestasis of . O+, abs neg, Rub Imm, RPR NR, Hep B neg. History of Any Multi-Drug Resistant Organisms: None Reported Past Surgical History: Tubal Ligation, Uterine Ablation Additional Past Surgical History / Comment(s): D&C, breast implants, Past Anesthesia/Blood Transfusion Reactions: No Reported Reaction Past Psychological History: Anxiety Smoking Status: Never smoker Past Alcohol Use History: Rare Additional Past Alcohol Use History / Comment(s): patient is a lifelong nonsmoker. No illicit drug use. Occasional alcohol use. She has a mother of 7 children with 3 being stepchildren. Past Drug Use History: None Reported - Past Family History Father Family Medical History: Diabetes Mellitus, Hypertension Additional Family Medical History / Comment(s): Father is alive at age 66 and had heart attack when 32 status post CABG. Mother Family Medical History: Hypertension Additional Family Medical History / Comment(s): Mother is alive at age 62 with history of gallstones. Brother(s) Family Medical History: No Reported History Additional Family Medical History / Comment(s): Patient has 2 brothers and one sister. Her sister has chronic workup for meningitis-type symptoms. Siblings have not been diagnosed with MS. Patient has 2 children with primary immunodeficiency. Medications and Allergies Home Medications Medication Instructions Recorded Confirmed Type Furosemide [Lasix] 20 mg PO DAILY 01/26/24 01/26/24 History Omeprazole [PriLOSEC] 20 mg PO DAILY 01/26/24 01/26/24 History amLODIPine [Norvasc] 10 mg PO DAILY 01/26/24 01/26/24 History Allergies Allergy/AdvReac Type Severity Reaction Status Date / Time amlodipine [From Norvasc] Allergy Swelling Verified 01/26/24 07:41 morphine Allergy Rash/Hives Verified 01/26/24 07:41 ketamine AdvReac Hallucinati Verified 01/26/24 07:41 ons ketorolac tromethamine AdvReac Nausea & Verified 01/26/24 07:41 [From Toradol] Vomiting paper tape Allergy Mild Rash/Hives Uncoded 01/26/24 07:41 Physical Exam Vitals: Vital Signs Temp Pulse Pulse Resp BP BP Pulse Ox 01/26/24 07:00 97.5 F L 59 L 18 122/52 98 01/26/24 06:46 97.8 F 53 L 16 101/67 94 L 01/26/24 05:04 56 L 22 114/82 98 01/26/24 01:00 58 L 18 105/67 96 01/26/24 00:00 57 L 18 100/70 95 01/25/24 23:00 52 L 19 128/75 98 01/25/24 22:00 53 L 18 106/65 100 01/25/24 19:28 97.7 F 64 18 120/83 98 Intake and Output 01/25/24 01/26/24 01/26/24 22:59 06:59 14:59 Other: Weight 88.451 kg 88.451 kg Results CBC & Chem 7: 01/25/24 20:09 01/25/24 20:09 Labs: Abnormal Lab Results - Last 24 Hours (Table) 01/25/24 01/25/24 01/25/24 Range/Units 20:09 20:09 20:09 Plt Count 523 H (150-450) k/uL D-Dimer 3.20 H (<0.60) mg/L FEU Sodium 136 L (137-145) mmol/L BUN 19 H (7-17) mg/dL Glucose 121 H (74-99) mg/dL Thrombosis Risk Factor Assmnt - Choose All That Apply Each Factor Represents 1 point: Age 41-60 years, Obesity (BMI >25) Thrombosis Risk Factor Assessment Total Risk Factor Score: 2 Thrombosis Risk Factor Assessment Level: Low Risk Assessment and Plan Time with Patient: Less than 30
[2024-01-26] MEDS: MELATONIN 3 MG TABLET PO PRN (20:56)
[2024-01-27] MEDS ORDERED: PROPOFOL 10 MG/ML 20 ML VIAL IV ONE (07:06)
[2024-01-27] MEDS: IV FLUID CONTINUATION 1,000 ML IV ONE (07:06)
[2024-01-27 07:18] LABS: HCT 39.8 % (34.0-46.0); HGB 12.5 gm/dL (11.4-16.0); MCH 28.7 pg (25.0-35.0); MCHC 31.4 g/dL (31.0-37.0); MCV 91.5 fL (80.0-100.0); Mean Platelet Volume 6.6; Platelet Count 422 k/uL (150-450); RBC 4.35 m/uL (3.80-5.40); RDW 12.4 % (11.5-15.5); WBC 6.6 k/uL (3.8-10.6)
--- NOTE | 2024-01-27 07:24 | P.OP ---
Date of Procedure: 01/27/24 Preoperative Diagnosis: Epigastric pain, nausea Postoperative Diagnosis: Antral gastritis Small hiatal hernia Procedure(s) Performed: EGD Anesthesia: MAC Surgeon: Michele Willis Pathology: other (Antrum) Condition: stable Disposition: PACU Description of Procedure: The patient was placed on the endoscopy table in the lateral position. She received IV sedation. The Gastroflux oropharynx passed in the esophagus and the stomach. Scope was placed through the pylorus. The first and second portion of the duodenum appeared normal. Scope was brought back to the antrum this appeared mildly Flaim. A biopsy was performed. The scope was then retroflexed remainder the stomach appeared normal. There was a small hiatal hernia. The GE junction was at 38 cm. The distal esophagus appeared minimal inflamed.. The proximal esophagus appeared normal. Scope withdrawn the patient.
[2024-01-27 07:40] LABS: African American GFR (CKD) >90 (>60 ml/min/1.73 sqM); Anion Gap 2 mmol/L; Blood Urea Nitrogen 12 mg/dL (7-17); Calcium 8.3 mg/dL (8.4-10.2); Carbon Dioxide 27 mmol/L (22-30); Chloride 106 mmol/L (98-107); Glucose 91 mg/dL (74-99); Non-African American GFR(CKD) >90 (>60 ml/min/1.73 sqM); Potassium 3.9 mmol/L (3.5-5.1); Sodium 135 mmol/L (137-145)
[2024-01-27 07:49] VITALS: RESP 15
--- NOTE | 2024-01-27 10:46 | NM ---
EXAMINATION TYPE: NM hepatobiliary w CCK DATE OF EXAM: 01/27/2024 COMPARISON: Ultrasound 01/25/2024 CLINICAL INDICATION: Female, 43 years old with history of epigastric abdominal pain; TECHNIQUE: After the intravenous administration of 4.7 mCi Tc 99m Mebrofenin hepatobiliary scintigrap hy is performed. Immediate images post injection. FINDINGS: There is satisfactory initial accumulation of tracer by the liver. The gallbladder is visualized wit hin 6 minutes. The small bowel activity is noted within 4 minutes. At one hour CCK was administered , patient was injected with 1.8 mcg of Kinevac, and gallbladder ejection fraction is calculated at 19 %, abnormally diminished. IMPRESSION: 1. No scintigraphic evidence for acute cholecystitis. 2. However, the gallbladder ejection fraction is abnormally diminished at 19%. This can be seen in th e setting of chronic cholecystitis or biliary dyskinesia. [facility], , 01/27/2024 10:44 AM
--- NOTE | 2024-01-27 11:20 | P.PN ---
Subjective Progress Note Date: 01/27/24 Patient still has some complaints of some epigastric and chest pain. Her EGD performed morning shows evidence of some mild antral gastritis and a small hiatal hernia. Her HIDA scan performed shows a 19% ejection fraction consistent with chronic cholecystitis biliary dysfunction. On exam vital signs appear stable. Abdomen is soft. Patient is stable for discharge from surgical standpoint. She will follow-up myself in the office next week. We will plan for outpatient cholecystectomy. Objective - Vital Signs Vital signs: Vital Signs Temp 97.8 F 01/27/24 10:04 Pulse 61 01/27/24 10:04 Resp 15 01/27/24 10:04 BP 107/69 01/27/24 10:04 Pulse Ox 100 01/27/24 10:04 FiO2 Intake & Output 01/26/24 01/27/24 01/27/24 18:59 06:59 18:59 Intake Total 100 Output Total 1 2 Balance -1 -2 100 Weight 88.451 kg Intake: IV 100 Output: Urine 2 Emesis 1 Other: Voiding Method Toilet Toilet # Voids 1 2 - Labs CBC & Chem 7: 01/27/24 06:52 01/27/24 06:52 Labs: Abnormal Lab Results - Last 24 Hours (Table) 01/27/24 Range/Units 06:52 Sodium 135 L (137-145) mmol/L Calcium 8.3 L (8.4-10.2) mg/dL
[2024-01-27 14:24] VITALS: BP 104/65; PULSE 72; TEMP 98.2
--- NOTE | 2024-01-30 20:09 | P.DS ---
Providers Date of admission: 01/26/24 00:36 Attending physician: Megan Pardo Consults: 01/26/24 11:53 Consult Physician Routine Consulting Provider: Michele Willis Consult Reason/Comments: epigstric pain Do you want consulting provider notified?: Yes Primary care physician: Kacie Matthews Hospital Course: Final Diagnosis Atypical chest pain, ACS rule out Epigastric pain likely gastritis with dysphagia; EGD shows mild antral gastritis Small hiatal hernia with EGD Biliary dyskinesia EF 19% History of hypertension was on amlodipine which she stopped taking due to peripheral edema History of nonsustained vtach and atrial tachycardia Multiple sclerosis Hx of sinus bradycardia Discharge Disposition Stable for discharge home. Continue on protonix and low fat diet. Follow up general surgery has an appt scheduled with Dr Willis on 02/01. Recommend to see PCP Dr Kacie matthews in 1 to 2 days. Hospital Course This is a 43-year-old female with medical history significant for bradycardia, multiple sclerosis, hypertension. Patient came into the hospital for epigastric pain. Patient states that the pain is in her epigastric right upper quadrant region and has been constant with no radiation. She did have worsening GERD symptoms last week and was given a trial of omeprazole by her family doctor without improvement in her symptoms. Patient also states when she is lying flat she feels a heaviness in her throat and like she cannot breath. She comes in to today short of breath with very little activity. D Dimer was positive at 3.20. Chest CT angiography was negative for acute findings and no evidence of pulmonary embolism. Gallbladder ultrasound reveals no acute abnormality of the right upper quadrant. Cardiology was consulted. Troponin levels have been negative and patient had a negative stress echo. Echocardiogram reveals normal LV size and systolic function. Mild antral and tricuspid regurgitation. Cardiac workup negative. Patient still having epigastric pain and general surgery was consulted. EGD performed shows evidence of some mild antral gastritis and a small hiatal hernia. Her HIDA scan performed shows a 19% ejection fraction consistent with chronic cholecystitis biliary dysfunction. General surgery will follow up with the patient in the office next week to schedule cholecystectomy. She will continue on protonix. Discharged home with pain management. Please see medication reconciliation for a list of current medications. Thank you for allowing us to participate in the care of this patient. The impression and plan of care has been dictated by Liza Johnson, Nurse Practitioner as directed. Dr. Kenyon MD I have performed a history and physical examination and medical decision making of this patient, discussed the same with the dictator, and agree with the dictators assessment and plan as written, documented as a scribe. Based on total visit time, I have performed more than 50% of this visit. Patient Condition at Discharge: Stable Plan - Discharge Summary New Discharge Prescriptions: New HYDROcodone/APAP 5-325MG [Offerman 5-325] 1 each PO Q6HR PRN #12 tab PRN Reason: Moderate Pain (Scale 4 To 6) Pantoprazole [Protonix] 40 mg PO DAILY 30 Days #37 tab Continue Furosemide [Lasix] 20 mg PO DAILY Discontinued amLODIPine [Norvasc] 10 mg PO DAILY Omeprazole [PriLOSEC] 20 mg PO DAILY Discharge Medication List Furosemide [Lasix] 20 mg PO DAILY 01/26/24 [History] HYDROcodone/APAP 5-325MG [Offerman 5-325] 1 each PO Q6HR PRN #12 tab 01/27/24 [Rx] Pantoprazole [Protonix] 40 mg PO DAILY 30 Days #37 tab 01/27/24 [Rx] Follow up Appointment(s)/Referral(s): Kacie Matthews MD [Primary Care Provider] - 1-2 days Michele Willis MD [STAFF PHYSICIAN] - 02/02/24 4:00 pm Patient Instructions/Handouts: Gastritis (ED) Activity/Diet/Wound Care/Special Instructions: Low-fat diet Continue protonix twice a day for the next week and continue protonix daily. Discharge Disposition: HOME SELF-CARE
== END 2024-01-27 14:53 | disposition home or self-care (01) ==
LOC: EC 19:25 → 6NMEDSUR 01-26 00:36
PROVIDERS: ADMIT Hospitalist; ATTEND Hospitalist
DX: R07.89 Other chest pain (principal); K29.50 Unspecified chronic gastritis without bleeding; K44.9 Diaphragmatic hernia without obstruction or gangrene; K82.8 Other specified diseases of gallbladder; I11.9 Hypertensive heart disease without heart failure; I47.20 Ventricular tachycardia, unspecified; I47.19 Other supraventricular tachycardia; G35 Multiple sclerosis; R79.89 Other specified abnormal findings of blood chemistry; K21.9 Gastro-esophageal reflux disease without esophagitis; I08.1 Rheumatic disorders of both mitral and tricuspid valves; I49.3 Ventricular premature depolarization; R60.9 Edema, unspecified; T46.1X5A Adverse effect of calcium-channel blockers, initial encounter; R00.1 Bradycardia, unspecified; R13.10 Dysphagia, unspecified; R49.0 Dysphonia; E66.9 Obesity, unspecified; Z68.30 Body mass index [BMI] 30.0-30.9, adult; Z79.82 Long term (current) use of aspirin; Z79.899 Other long term (current) drug therapy; Z88.4 Allergy status to anesthetic agent; Z88.5 Allergy status to narcotic agent; Z91.048 Other nonmedicinal substance allergy status; Z88.8 Allergy status to other drugs, medicaments and biological substances
CPT/HCPCS: 96376 ×4; 96375 ×3; 96361; 96374; 99285; 36415; 93005; 93306; 93351; 85379; 88305; 80053; 80048; 84443; 82150; 83605; 83690; 83735; 84484 ×2; 85025; 85027; 85610; 85730; 84703; 76705; 71275; 78227; 43239; G0378 ×2; A9537; J2060; J2405; J2805; J3490; J1171 ×4; J2704; Q9967; J2470 ×2

== ENCOUNTER 2024-01-30 22:06 | Emergency (ER) | payer BC ==
[2024-01-30 22:09] VITALS: TEMP 97.5
--- NOTE | 2024-01-30 22:26 | ED ---
General Adult HPI - General Chief complaint: Chest Pain Stated complaint: CP Time Seen by Provider: 01/30/24 22:23 Source: patient Mode of arrival: ambulatory Limitations: no limitations - History of Present Illness Initial comments: This is a 43-year-old female presenting today for left-sided chest pain. States at home tonight began having sharp left-sided chest pain felt lightheaded, and felt her heart skip a beat. No pain medications taken prior to arrival in the emergency department. She currently endorses intermittent left-sided sharp chest pain. This radiate down her left arm. Associated shortness of breath worse with ambulation. She has not had any cough or hemoptysis. No fevers. No abdominal pain. Does endorse nausea but no vomiting. No black or bloody stools, patient did feel lightheaded with episode of palpitation that has since resolved. She denies any new numbness or focal weakness. Was recently admitted for choledocholithiasis and did have a stress test and echocardiogram done during that admission that was unremarkable. She followed Dr. Salmeron for similar episodes. She has not had any recent surgeries or trauma, no recent travel, no hide history of prior PE or DVT, is not on estrogen replacement or oral contra ceptives, non-smoker, no history of prior DE no lower extremity swelling. Patient's father did have heart attack first 1 at age 39. Patient has no history of hypertension, diabetes or hyperlipidemia. - Related Data Home Medications Medication Instructions Recorded Confirmed Furosemide [Lasix] 20 mg PO DAILY 01/26/24 01/26/24 Previous Rx's Medication Instructions Recorded HYDROcodone/APAP 5-325MG [[place] 1 each PO Q6HR PRN #12 tab 01/27/24 5-325] Pantoprazole [Protonix] 40 mg PO DAILY 30 Days #37 tab 01/27/24 Allergies Allergy/AdvReac Type Severity Reaction Status Date / Time amlodipine [From Norvas] Allergy Swelling Verified 01/30/24 22:09 morphine Allergy Rash/Hives Verified 01/30/24 22:09 ketamine AdvReac Hallucinati Verified 01/30/24 22:09 ons ketorolac tromethamine AdvReac Nausea & Verified 01/30/24 22:09 [From Toradol] Vomiting paper tape Allergy Mild Rash/Hives Uncoded 01/30/24 22:09 Review of Systems ROS Statement: Those systems with pertinent positive or pertinent negative responses have been documented in the HPI. ROS Other: All systems not noted in ROS Statement are negative. Past Medical History Past Medical History: Musculoskeletal Disorder Additional Past Medical History / Comment(s): bradycardia, Multiple Sclerosis. Obstetric history: She has had 3 vaginal deliveries and 2 spontaneous abortions, cholestasis of . O+, abs neg, Rub Imm, RPR NR, Hep B neg. History of Any Multi-Drug Resistant Organisms: None Reported Past Surgical History: Tubal Ligation, Uterine Ablation Additional Past Surgical History / Comment(s): D&C, breast implants, Past Anesthesia/Blood Transfusion Reactions: No Reported Reaction Past Psychological History: Anxiety Smoking Status: Never smoker Past Alcohol Use History: Rare Past Drug Use History: None Reported - Past Family History Father Family Medical History: Diabetes Mellitus, Hypertension Additional Family Medical History / Comment(s): Father is alive at age 66 and had heart attack when 32 status post CABG. Mother Family Medical History: Hypertension Additional Family Medical History / Comment(s): Mother is alive at age 62 with history of gallstones. Brother(s) Family Medical History: No Reported History Additional Family Medical History / Comment(s): Patient has 2 brothers and one sister. Her sister has chronic workup for meningitis-type symptoms. Siblings have not been diagnosed with MS. Patient has 2 children with primary immunodeficiency. General Exam - General Exam Comments Initial Comments: PE: CONSTITUTIONAL: No apparent distress, well appearing SKIN: Warm, dry, no jaundice, hives or petechiae EYES: Pupils are equally round, extraocular movements intact without nystagmus, clear conjunctiva, non-icteric sclera HENT: Normocephalic, atraumatic, moist mucus membranes, oropharynx clear without exudates NECK: , Full range of motion, normal appearance PULMONARY: Clear to auscultation without wheezes, rhonchi, or rales, normal excursion, no accessory muscle use and no stridor CARDIOVASCULAR: Regular rate, rhythm, normal S1 and S2. No appreciated murmurs, rubs or gallops. Strong radial pulses with intact distal perfusion. No lower extremity edema GASTROINTESTINAL: Soft, active bowel sounds throughout, non-tender, non- distended, no palpable masses, no rebound or guarding. No hepatosplenomegaly MUSCULOSKELETAL: Extremities have no gross deformity, no edema, redness, or swelling. No calf swelling NEUROLOGIC:_a/o x 3, GCS 15, normal mentation and speech. Moves all extremities x 4 without motor or sensory deficit PSYCHIATRIC:_Mildly anxious mood and affect, thought process is clear and linear Limitations: no limitations Course Vital Signs 01/30/24 01/30/24 01/30/24 22:07 22:50 23:07 Temperature 97.5 F L Pulse Rate 65 61 66 Respiratory 18 18 18 Rate Blood Pressure 130/89 107/76 128/89 O2 Sat by Pulse 98 97 96 Oximetry 01/31/24 01/31/24 01/31/24 00:00 01:00 02:00 Temperature Pulse Rate 51 L 54 L 49 L Respiratory 18 16 16 Rate Blood Pressure 116/75 99/75 104/71 O2 Sat by Pulse 98 97 98 Oximetry EKG Findings - EKG Comments: EKG Findings:: Compared to EKG performed on 01/25/2024, today shows sinus rhythm, rate 60 bpm, IN interval 150 ms, QRS duration 103 ms, QT/QTc 426/426 ms, left axis deviation, new T wave inversion lead V2 otherwise no significant ch anges from prior, no ST elevations or depressions Medical Decision Making - Medical Decision Making Was pt. sent in by a medical professional or institution (, PA, POT FLUXER, urgent care, hospital, or usp...) When possible be specific @ -[No] Did you speak to anyone other than the patient for history (EMS, parent, family, police, friend...)? What history was obtained from this source @ -[No] Did you review nursing and triage notes (agree or disagree)? Why? @ -[I reviewed and agree with nursing and triage notes] Were old charts reviewed (outside hosp., previous admission, EMS record, old EKG, old radiological studies, urgent care reports/EKG's, usp records)? Report findings @Medical records reviewed, patient recently admitted on 01/26/2024 for atypical typical chest pain and epigastric pain CT PE study performed at that time showed no evidence of PE or acute pulmonary pathology additionally echocardiogram showed normal left ventricular size and systolic function with mild mitral and tricuspid regurgitation stress echo performed during this admission showed patient reaching her target heart rate without any cardiac symptoms and a normal EKG without any ST or T wave changes during exercise, patient good exercise t olerance with normal echocardiogram response to exercise and normal stress echo Differential Diagnosis (chest pain, altered mental status, abdominal pain women, abdominal pain men, vaginal bleeding, weakness, fever, dyspnea, syncope, headache, dizziness, GI bleed, back pain, seizure, CVA, palpatations, mental health, musculoskeletal)? @Differential Chest Pain: Stable Angina, Unstable Angina, STEMI, NSTEMI Aortic Dissection, pericarditis, pleurisy, chostochondirits, Pneumothorax, Musculoskeletal, Esophageal Spasm GERD, Cholecystitis, Pancreatitis, Zoster, this is not meant to be an all-inclus dinorah list. EKG interpreted by me (3pts min.). @ -[As above] X-rays interpreted by me (1pt min.). @No cardiomegaly, consolidations, pleural effusions or pneumothorax CT interpreted by me (1pt min.). @ -[None done] U/S interpreted by me (1pt. min.). @ -[None done] What testing was considered but not performed or refused? (CT, X-rays, U/S, labs)? Why? @ -Consider a D-dimer however patient had a CT PE study performed 5 days prior to arrival which was negative, patient PERC rule negative What meds were considered but not given or refused? Why? @ -[None] Did you discuss the management of the patient with other professionals (professionals i.e. , PA, POT FLUXER, lab, RT, psych nurse, social work therapist, bonding and composite fabricator, teacher, sports development officer, human services case manager)? Give summary @ -[No] Was smoking cessation discussed for >3mins.? @ -[No] Was critical care preformed (if so, how long)? @ -[No] Were there social determinants of health that impacted care today? How? (Homelessness, low income, unemployed, alcoholism, drug addiction, transportation, low edu. Level, literacy, decrease access to med. care, long term, rehab)? @ -[No] Was there de-escalation of care discussed even if they declined (Discuss DNR or withdrawal of care, Hospice)? @ -[No] What co-morbidities impacted this encounter? (DM, HTN, Smoking, COPD, CAD, Cancer, CVA, ARF, Chemo, Hep., AIDS, mental health diagnosis, sleep apnea, morbid obesity)? @Hypertension Was patient admitted / discharged? Hospital course, mention meds given and route, prescriptions, significant lab abnormalities, going to OR and other pertinent info. @ -[hospital course] Is a pleasant 43-year-old female history hypertension recent admission for atypical chest pain and right upper quadrant pain, stress test performed at that time was normal, returns today for left-sided sharp chest pain. My assessment patient is mildly spearing stating that she felt she had a palpitation and saw her heart rate increase while awaiting assessment, she did not feel anxious prior to coming in but feels anxious because of this. That has since resolved. Heart rate currently in the 60s on the monitor. Cardiac exam reassuring no lower extremity edema, normal S1-S2 on cardiac exam without murmurs or rubs, 2+ radial pulses bilaterally, lungs are clear to auscultation, there is no tende rness palpation of the chest wall. Discussed with patient cardiac workup, she is allergic to morphine so will give Dilaudid, aspirin weakness insert as well, trialed sublingual nitroglycerin without relief of pain. Labs reviewed. Labs and imaging reviewed. Grossly within normal limits. Abnormal values not concerning for acute pathology related to presenting complaint. Patient to findings and pending repeat troponin, patient's pain has improved she is comfortable with plan. Undiagnosed new problem with uncertain prognosis? @ -[No] Drug Therapy requiring intensive monitoring for toxicity (Heparin, Nitro, Insulin, Cardizem)? @ -[No] Were any procedures done? @ -[No] Diagnosis/symptom? @ -[default] Acute, or Chronic, or Acute on Chronic? @ -[default] Uncomplicated (without systemic symptoms) or Complicated (systemic symptoms)? @ -[default] Side effects of treatment? @ -[No] Exacerbation, Progression, or Severe Exacerbation? @ -[No] Poses a threat to life or bodily function? How? (Chest pain, USA, DE, pneumonia, PE, COPD, DKA, ARF, appy, cholecystitis, CVA, Diverticulitis, Homicidal, Suicidal, threat to staff... and all critical care pts) @ -[No] - Lab Data Result diagrams: 01/30/24 23:30 01/30/24 23:30 Lab Results 01/30/24 01/30/24 01/30/24 Range/Units 23:30 23:30 23:30 WBC 8.0 (3.8-10.6) k/uL RBC 4.73 (3.80-5.40) m/uL Hgb 14.0 (11.4-16.0) gm/dL Hct 42.2 (34.0-46.0) % MCV 89.3 (80.0-100.0) fL MCH 29.6 (25.0-35.0) pg MCHC 33.2 (31.0-37.0) g/dL RDW 12.4 (11.5-15.5) % Plt Count 487 H (150-450) k/uL MPV 6.9 Neutrophils % 57 % Lymphocytes % 29 % Monocytes % 8 % Eosinophils % 3 % Basophils % 1 % Neutrophils # 4.6 (1.3-7.7) k/uL Lymphocytes # 2.3 (1.0-4.8) k/uL Monocytes # 0.6 (0-1.0) k/uL Eosinophils # 0.3 (0-0.7) k/uL Basophils # 0.1 (0-0.2) k/uL PT 10.8 (10.0-12.5) sec INR 1.0 (<1.2) APTT 27.6 (22.0-30.0) sec Sodium 136 L (137-145) mmol/L Potassium 3.7 (3.5-5.1) mmol/L Chloride 103 (98-107) mmol/L Carbon Dioxide 25 (22-30) mmol/L Anion Gap 8 mmol/L BUN 19 H (7-17) mg/dL Creatinine 0.74 (0.52-1.04) mg/dL Est GFR (CKD-EPI)AfAm >90 (>60 ml/min/1.73 sqM) Est GFR (CKD-EPI)NonAf >90 (>60 ml/min/1.73 sqM) Glucose 117 H (74-99) mg/dL Calcium 9.6 (8.4-10.2) mg/dL Magnesium 2.2 (1.6-2.3) mg/dL Total Bilirubin 0.5 (0.2-1.3) mg/dL AST 23 (14-36) U/L ALT 21 (4-34) U/L Alkaline Phosphatase 101 (38-126) U/L Troponin I (0.000-0.034) ng/mL NT-Pro-B Natriuret Pep <20 pg/mL Total Protein 6.7 (6.3-8.2) g/dL Albumin 4.2 (3.5-5.0) g/dL Amylase 48 (30-110) U/L Lipase 95 (23-300) U/L 01/30/24 01/31/24 Range/Units 23:30 01:33 WBC (3.8-10.6) k/uL RBC (3.80-5.40) m/uL Hgb (11.4-16.0) gm/dL Hct (34.0-46.0) % MCV (80.0-100.0) fL MCH (25.0-35.0) pg MCHC (31.0-37.0) g/dL RDW (11.5-15.5) % Plt Count (150-450) k/uL MPV Neutrophils % % Lymphocytes % % Monocytes % % Eosinophils % % Basophils % % Neutrophils # (1.3-7.7) k/uL Lymphocytes # (1.0-4.8) k/uL Monocytes # (0-1.0) k/uL Eosinophils # (0-0.7) k/uL Basophils # (0-0.2) k/uL PT (10.0-12.5) sec INR (<1.2) APTT (22.0-30.0) sec Sodium (137-145) mmol/L Potassium (3.5-5.1) mmol/L Chloride (98-107) mmol/L Carbon Dioxide (22-30) mmol/L Anion Gap mmol/L BUN (7-17) mg/dL Creatinine (0.52-1.04) mg/dL Est GFR (CKD-EPI)AfAm (>60 ml/min/1.73 sqM) Est GFR (CKD-EPI)NonAf (>60 ml/min/1.73 sqM) Glucose (74-99) mg/dL Calcium (8.4-10.2) mg/dL Magnesium (1.6-2.3) mg/dL Total Bilirubin (0.2-1.3) mg/dL AST (14-36) U/L ALT (4-34) U/L Alkaline Phosphatase (38-126) U/L Troponin I <0.012 <0.012 (0.000-0.034) ng/mL NT-Pro-B Natriuret Pep pg/mL Total Protein (6.3-8.2) g/dL Albumin (3.5-5.0) g/dL Amylase (30-110) U/L Lipase (23-300) U/L Disposition Clinical Impression: Chest pain Disposition: HOME SELF-CARE Condition: Good Instructions (If sedation given, give patient instructions): Chest Pain (ED) Additional Instructions: Every disease is a spectrum and a small chance still exists that a serious condition could develop, for this reason, please monitor yourself closely for new, changing or worsening symptoms, symptoms that persist beyond 48 hours, symptoms not relieved when you take your sublingual nitroglycerin with rest, c hest pressure, feeling like something is sitting on your chest, chest pain that does not improve with medications or rest different or worse than chst pain you have had in the past, pain associated with sweatiness, nausea, vomiting, dizziness or lightheadedness or feel like you going to pass out, coughing up blood, swelling in your legs, fever, inability to tolerate/keep down fluids or your medications, inability to follow up with outpatient providers as instructed and should you experience these symptoms or should you have any further concerns for your wellbeing please return to the ED or call 911 immediately. Please follow with your director of assisted living, Dr. Salmeron within 48 hours regarding today 's visit. PLEASE call your primary care physician as soon as possible to arrange / discuss plan for followup appointment. Appointment in the next 1-3 days is strongly encouraged if possible. PLEASE let us know here before you leave if there is anything further we can do to be of any assistance. Take care and feel Better! Is patient prescribed a controlled substance at d/c from ED?: No Referrals: Kacie Matthews MD [Primary Care Provider] - 1-2 days Mayank Jackson MD [STAFF PHYSICIAN] - 1-2 days
[2024-01-30] MEDS: SODIUM CHLORIDE 0.9% 1,000 ML IV ONE (23:06)
[2024-01-30] MEDS: NITROGLYCERIN SL TABS 0.4 MG TAB SUBLINGUAL STA (23:06)
[2024-01-30] MEDS: MORPHINE SULFATE 4 MG/ML SYRINGE IVP STA (23:07)
[2024-01-30] MEDS: LORazepam 1 MG TAB PO STA (23:25)
[2024-01-30] MEDS: ONDANSETRON 4 MG/2 ML VIAL IVP STA (23:26)
[2024-01-30] MEDS: SODIUM CHLORIDE 0.9% 1,000 ML IV STA ×2 (23:31→23:35)
[2024-01-30] MEDS: ASPIRIN 81 MG PO STA (23:31)
[2024-01-30] MEDS: HYDROmorphone 0.5 MG/0.5 ML SYRINGE IVP STA (23:32)
[2024-01-30 23:55] LABS: Basophils # (A) 0.1 k/uL (0-0.2); Basophils % (A) 1 %; Eosinophils # (A) 0.3 k/uL (0-0.7); Eosinophils % (A) 3 %; HCT 42.2 % (34.0-46.0); Lymphocytes # (A) 2.3 k/uL (1.0-4.8); Lymphocytes % (A) 29 %; MCH 29.6 pg (25.0-35.0); MCHC 33.2 g/dL (31.0-37.0); MCV 89.3 fL (80.0-100.0); Mean Platelet Volume 6.9; Monocytes # (A) 0.6 k/uL (0-1.0); Monocytes % (A) 8 %; Neutrophils # (A) 4.6 k/uL (1.3-7.7); Neutrophils % (A) 57 %; Platelet Count 487 k/uL (150-450); RBC 4.73 m/uL (3.80-5.40); RDW 12.4 % (11.5-15.5)
[2024-01-31 00:05] LABS: ALT 21 U/L (4-34); AST 23 U/L (14-36); African American GFR (CKD) >90 (>60 ml/min/1.73 sqM); Albumin 4.2 g/dL (3.5-5.0); Alkaline Phosphatase 101 U/L (38-126); Amylase 48 U/L (30-110); Anion Gap 8 mmol/L; Blood Urea Nitrogen 19 mg/dL (7-17); Calcium 9.6 mg/dL (8.4-10.2); Carbon Dioxide 25 mmol/L (22-30); Chloride 103 mmol/L (98-107); Glucose 117 mg/dL (74-99); Lipase 95 U/L (23-300); Magnesium 2.2 mg/dL (1.6-2.3); Non-African American GFR(CKD) >90 (>60 ml/min/1.73 sqM); Potassium 3.7 mmol/L (3.5-5.1); Sodium 136 mmol/L (137-145); Total Bilirubin 0.5 mg/dL (0.2-1.3); Total Protein 6.7 g/dL (6.3-8.2)
[2024-01-31 00:14] LABS: NT-Pro-B-Type Natriuretic Pept <20 pg/mL
[2024-01-31 00:16] LABS: Partial Thromboplastin Time 27.6 sec (22.0-30.0); Prothrombin Time 10.8 sec (10.0-12.5)
[2024-01-31 01:05] VITALS: RESP 16
--- NOTE | 2024-01-31 01:54 | XR ---
EXAM: XR Chest, 2 Views CLINICAL HISTORY: left chest pain TECHNIQUE: Frontal and lateral views of the chest. COMPARISON: 05/20/2022 FINDINGS: Lungs: Unremarkable. No consolidation. Pleural space: Unremarkable. Mediastinum: Unremarkable. Normal mediastinal contour. Bones/joints: No acute findings. IMPRESSION: No acute findings.
[2024-01-31 02:09] VITALS: BP 104/71; PULSE 49
== END 2024-01-31 02:54 | disposition home or self-care (01) ==
LOC: EC 22:06
DX: R07.89 Other chest pain (principal); I10 Essential (primary) hypertension; Z88.8 Allergy status to other drugs, medicaments and biological substances; Z88.1 Allergy status to other antibiotic agents; Z91.048 Other nonmedicinal substance allergy status
CPT/HCPCS: 99285 ×2; 96374 ×2; 96375 ×2; 96361 ×3; 36415 ×2; 93005; 83880; 80053; 82150; 83690; 83735; 84484 ×2; 85025; 85610; 85730; 71046; J2405; J1171

== ENCOUNTER 2024-02-12 09:25 | Emergency (ER) | payer BC ==
[2024-02-12 10:35] LABS: ALT 29 U/L (4-34); African American GFR (CKD) >90 (>60 ml/min/1.73 sqM); Anion Gap 11 mmol/L; Blood Urea Nitrogen 13 mg/dL (7-17); Calcium 10.2 mg/dL (8.4-10.2); Carbon Dioxide 26 mmol/L (22-30); Chloride 100 mmol/L (98-107); Glucose 96 mg/dL (74-99); Non-African American GFR(CKD) >90 (>60 ml/min/1.73 sqM); Sodium 137 mmol/L (137-145)
--- NOTE | 2024-02-12 10:36 | XR ---
EXAMINATION TYPE: XR chest 2V DATE OF EXAM: 02/12/2024 10:16 AM COMPARISON: 01/31/2024 CLINICAL INDICATION: Female, 43 years old with history of Chest Pain, TECHNIQUE: XR chest 2V view(s) obtained. FINDINGS: The heart size is normal. The pulmonary vasculature is normal. The lungs are clear. IMPRESSION: 1. No acute pulmonary process. [facility], , 02/12/2024 10:33 AM
[2024-02-12 10:37] LABS: Basophils # (A) 0.1 k/uL (0-0.2); Basophils % (A) 1 %; Eosinophils # (A) 0.2 k/uL (0-0.7); Eosinophils % (A) 2 %; HCT 49.5 % (34.0-46.0); HGB 15.9 gm/dL (11.4-16.0); Lymphocytes # (A) 2.6 k/uL (1.0-4.8); Lymphocytes % (A) 30 %; MCH 28.8 pg (25.0-35.0); MCHC 32.1 g/dL (31.0-37.0); MCV 89.6 fL (80.0-100.0); Monocytes # (A) 0.5 k/uL (0-1.0); Monocytes % (A) 6 %; Neutrophils % (A) 59 %; Platelet Count 597 k/uL (150-450); RBC 5.52 m/uL (3.80-5.40); RDW 12.1 % (11.5-15.5); WBC 8.5 k/uL (3.8-10.6)
[2024-02-12 10:41] LABS: Albumin 5.4 g/dL (3.5-5.0); Magnesium 2.4 mg/dL (1.6-2.3); Potassium 5.4 mmol/L (3.5-5.1); Total Bilirubin 1.1 mg/dL (0.2-1.3); Total Protein 8.7 g/dL (6.3-8.2)
[2024-02-12 10:42] LABS: AST 40 U/L (14-36); Alkaline Phosphatase 98 U/L (38-126)
[2024-02-12 10:43] LABS: Partial Thromboplastin Time 26.9 sec (22.0-30.0); Prothrombin Time 10.8 sec (10.0-12.5)
--- NOTE | 2024-02-12 10:46 | ED ---
Chest Pain HPI - General Source: patient, RN notes reviewed Mode of arrival: ambulatory Limitations: no limitations <Abi Craig - Last Filed: 02/12/24 10:46> <Dl Benítez - Last Filed: 02/12/24 14:20> - General Chief Complaint: Chest Pain Stated Complaint: Chest Pain Time Seen by Provider: 02/12/24 10:46 - History of Present Illness Initial Comments: Quick note: 43-year-old female presented to the ER for evaluation of chest pain. Patient states around 8 AM she started to experience a pressure/tightness sensation in the left side of her chest. There is radiation to her left shoulder. She admits to shortness of breath. History of hypertension. (Abi Craig) This is a 43-year-old female who presents to the emergency department stating she has chest pain. Patient states chest pain started about a week and a half ago. Patient states during that time she has been in the emergency department twice before and [place] location [place]. Patient states the pain comes and goes last couple hours. Patient states that it is a pressure sensation. Patient states it does occasionally cause her some shortness of breath. Patient states that there is no nausea vomiting or diaphoretic episode. Patient is not a diabetic she denies high cholesterol or smoking she also denies family history. Patient states she does have high blood pressure patient is scheduled for coronary artery CT. Denies any fever chills or cough (Dl Benítez) - Related Data Home Medications Medication Instructions Recorded Confirmed Furosemide [Lasix] 20 mg PO DAILY 01/26/24 01/26/24 Previous Rx's Medication Instructions Recorded HYDROcodone/APAP 5-325MG [Pantego 1 each PO Q6HR PRN #12 tab 01/27/24 5-325] Pantoprazole [Protonix] 40 mg PO DAILY 30 Days #37 tab 01/27/24 Allergies Allergy/AdvReac Type Severity Reaction Status Date / Time amlodipine [From Norvasc] Allergy Swelling Verified 02/12/24 09:33 morphine Allergy Rash/Hives Verified 02/12/24 09:33 ketamine AdvReac Hallucinati Verified 02/12/24 09:33 ons ketorolac tromethamine AdvReac Nausea & Verified 02/12/24 09:33 [From Toradol] Vomiting paper tape Allergy Mild Rash/Hives Uncoded 02/12/24 09:33 Review of Systems ROS Other: All systems not noted in ROS Statement are negative. <Abi Craig - Last Filed: 02/12/24 10:46> ROS Other: All systems not noted in ROS Statement are negative. <Dl Benítez - Last Filed: 02/12/24 14:20> ROS Statement: Those systems with pertinent positive or pertinent negative responses have been documented in the HPI. Past Medical History Past Medical History: Musculoskeletal Disorder Additional Past Medical History / Comment(s): bradycardia, Multiple Sclerosis. Obstetric history: She has had 3 vaginal deliveries and 2 spontaneous abortions, cholestasis of . O+, abs neg, Rub Imm, RPR NR, Hep B neg. History of Any Multi-Drug Resistant Organisms: None Reported Past Surgical History: Tubal Ligation, Uterine Ablation Additional Past Surgical History / Comment(s): D&C, breast implants, Past Anesthesia/Blood Transfusion Reactions: No Reported Reaction Past Psychological History: Anxiety Smoking Status: Never smoker Past Alcohol Use History: Occasional Past Drug Use History: None Reported - Past Family History Father Family Medical History: Diabetes Mellitus, Hypertension Additional Family Medical History / Comment(s): Father is alive at age 66 and had heart attack when 32 status post CABG. Mother Family Medical History: Hypertension Additional Family Medical History / Comment(s): Mother is alive at age 62 with history of gallstones. Brother(s) Family Medical History: No Reported History Additional Family Medical History / Comment(s): Patient has 2 brothers and one sister. Her sister has chronic workup for meningitis-type symptoms. Siblings have not been diagnosed with MS. Patient has 2 children with primary immunodeficiency. <Abi Craig - Last Filed: 02/12/24 10:46> General Exam Limitations: no limitations <Abi Craig - Last Filed: 02/12/24 10:46> <Dl Benítez - Last Filed: 02/12/24 14:20> - General Exam Comments Initial Comments: Visual Physical Exam Vital signs reviewed General: Well-appearing, nontoxic, no acute distress. Head: Normocephalic, atraumatic Eyes: PERRLA, EOMI ENT: Airway patent Chest: Nonlabored breathing Skin: No visual rash, normal skin tone Neuro: Alert and oriented 3 Musculoskeletal: No gross abnormalities (Abi Craig) GENERAL: Patient is well-developed and well-nourished. Patient is nontoxic and well- hydrated and is in mild distress. ENT: Neck is soft and supple. No significant lymphadenopathy is noted. Oropharynx is clear. Moist mucous membranes. Neck has full range of motion without eliciting any pain. EYES: The sclera were anicteric and conjunctiva were pink and moist. Extraocular m ovements were intact and pupils were equal round and reactive to light. Eyelids were unremarkable. PULMONARY: Unlabored respirations. Good breath sounds bilaterally. No audible rales rhonchi or wheezing was noted. CARDIOVASCULAR: There is a regular rate and rhythm without any murmurs gallops or rubs. ABDOMEN: Soft and nontender with normal bowel sounds. SKIN: Skin is clear with no lesions or rashes and otherwise unremarkable. NEUROLOGIC: Patient is alert and oriented x3. Cranial nerves II through XII are grossly intact. Motor and sensory are also intact. Normal speech, volume and content. Symmetrical smile. MUSCULOSKELETAL: Normal extremities with adequate strength and full range of motion. LYMPHATICS: No significant lymphadenopathy is noted PSYCHIATRIC: Normal psychiatric evaluation. (Dl Benítez) Course Vital Signs 02/12/24 02/12/24 02/12/24 09:33 12:48 13:09 Temperature 97.8 F 99.1 F Pulse Rate 90 63 Pulse Rate [ 63 Pulse Oximetery ] Respiratory 18 17 Rate Blood Pressure 105/63 102/77 O2 Sat by Pulse 99 97 Oximetry 02/12/24 13:10 Temperature 99.1 F Pulse Rate 63 Pulse Rate [ Pulse Oximetery ] Respiratory 17 Rate Blood Pressure 102/77 O2 Sat by Pulse 97 Oximetry Chest Pain MDM <Abi Craig - Last Filed: 02/12/24 10:46> <Dl Benítez - Last Filed: 02/12/24 14:20> - [facility] I performed the quick note portion of this chart. Electronically signed by Abi Craig PA-C (Abi Craig) EKG is interpreted by myself. EKG shows sinus rhythm at 69 bpm. It was 143 QRS is 95 QT interval 381 QTc of 400. Patient's EKG shows no ST segment elevation or depression. Was pt. sent in by a medical professional or institution (, MALINA, DREDGE LEVER OPERATOR, urgent care, hospital, or chcf...) When possible be specific @ -No Did you speak to anyone other than the patient for history (EMS, parent, family, police, friend...)? What history was obtained from this source @ -No Did you review nursing and triage notes (agree or disagree)? Why? @ -I reviewed and agree with nursing and triage notes Were old charts reviewed (outside hosp., previous admission, EMS record, old EKG, old radiological studies, urgent care reports/EKG's, chcf records)? Report findings @ -No old charts were reviewed Differential Diagnosis? @ -Differential Chest Pain: Stable Angina, Unstable Angina, STEMI, NSTEMI Aortic Dissection, Pneumothorax, Musculoskeletal, Esophageal Spasm GERD, Cholecystitis, Pancreatitis, Zoster, this is not meant to be an all-inclusive list. EKG interpreted by me (3pts min.). @ -As above X-rays interpreted by me (1pt min.). @ -Chest x-ray shows no acute abnormality CT interpreted by me (1pt min.). @ -None done U/S interpreted by me (1pt. min.). @ -None done What testing was considered but not performed or refused? (CT, X-rays, U/S, labs)? Why? @ -None What meds were considered but not given or refused? Why? @ -None Did you discuss the management of the patient with other professionals (professionals i.e. MALINA Jackson, DREDGE LEVER OPERATOR, lab, RT, psych nurse, social media campaign manager, organ assembler, teacher, sports development officer, case management manager)? Give summary @ -Spoke with Dr. Jackson he saw the patient earlier today and set up an outpatient coronary artery CT Was smoking cessation discussed for >3mins.? @ -No Was critical care preformed (if so, how long)? @ -No Were there social determinants of health that impacted care today? How? (Homelessness, low income, unemployed, alcoholism, drug addiction, transportation, low edu. Level, literacy, decrease access to med. care, fci, rehab)? @ -No Was there de-escalation of care discussed even if they declined (Discuss DNR or withdrawal of care, Hospice)? DNR status @ -No What co-morbidities impacted this encounter? (DM, HTN, Smoking, COPD, CAD, Cancer, CVA, ARF, Chemo, Hep., AIDS, mental health diagnosis, sleep apnea, morbid obesity)? @ -None Was patient admitted / discharged? Hospital course, mention meds given and route, prescriptions, significant lab abnormalities, going to OR and other pertinent info. @ -Patient after all the lab work is back. X-ray was normal lab work was normal. I spoke with Dr. Jackson. And I did give the patient the option to stay but she states that she did not want to stay because this has been ongoing for a week and she wants to just follow-up and get her outpatient coronary artery CT Undiagnosed new problem with uncertain prognosis? @ -No Drug Therapy requiring intensive monitoring for toxicity (Heparin, Nitro, Insulin, Cardizem)? @ -No Were any procedures done? @ -No Diagnosis/symptom? @ -Chest Acute, or Chronic, or Acute on Chronic? @ -Acute on chronic Uncomplicated (without systemic symptoms) or Complicated (systemic symptoms)? @ -Complicate Side effects of treatment? @ -No Exacerbation, Progression, or Severe Exacerbation? @ -No Poses a threat to life or bodily function? How? (Chest pain, [place], [place], pneumonia, PE, COPD, DKA, ARF, appy, cholecystitis, CVA, Diverticulitis, Homicidal, Suicidal, threat to staff... and all critical care pts) @ -No (Dl Benítez) Disposition <Abi Craig - Last Filed: 02/12/24 10:46> Time of Disposition: 12:50 <Dl Benítez - Last Filed: 02/12/24 14:20> Clinical Impression: Chest pain Disposition: HOME SELF-CARE Condition: Good Instructions (If sedation given, give patient instructions): Chest Pain (ED) Referrals: Kacie Matthews MD [Primary Care Provider] - 1-2 days
[2024-02-12 12:52] VITALS: BP 102/77; PULSE 63; RESP 17; TEMP 99.1
== END 2024-02-12 13:22 | disposition home or self-care (01) ==
LOC: EC 09:25
DX: R07.9 Chest pain, unspecified (principal); Z88.5 Allergy status to narcotic agent; Z88.8 Allergy status to other drugs, medicaments and biological substances; Z91.018 Allergy to other foods
CPT/HCPCS: 36415; 71046; 80053; 83735; 84484; 85025; 85610; 85730; 93005; 99285

== ENCOUNTER 2024-02-17 07:20 | Day surgery (SDC) | payer BC ==
[~2024-02-17 07:20] MED LIST changes: -DEXAMETHASONE SOD PHOSPHATE 10 MG/ML 1 ML VIAL IV ONE; +LACTATED RINGERS 1,000 ML IV SCH; -LIDOCAINE 1% 20 ML VIAL (10MG/ML) FOR IV START INTRADERMA PRN; -MIDAZOLAM 2 MG/2 ML VIAL IV PRN; -ONDANSETRON 4 MG/2 ML VIAL IVP ONE; -Pre Op ABX Message 1 EACH MISC MISCELLANE ONE; -fentaNYL (PF) 50 MCG/ML 2 ML AMP IV PRN
[2024-02-17] MEDS: IV FLUID CONTINUATION 1,000 ML IV ONE (07:56)
[2024-02-17] MEDS ORDERED: fentaNYL (PF) 50 MCG/ML 2 ML AMP ONE (08:21)
[2024-02-17] MEDS ORDERED: SUCCINYLCHOLINE CHLORIDE 200 MG/10 ML VIAL IV ONE (08:21)
[2024-02-17] MEDS ORDERED: MIDAZOLAM 2 MG/2 ML VIAL ONE (08:21)
[2024-02-17] MEDS ORDERED: GLYCOPYRROLATE 0.2 MG/ML 2 ML VIAL ONE (08:21)
[2024-02-17] MEDS ORDERED: LIDOCAINE 1% INJ 10MG/ML (20 ML MDV) ONE (08:21)
[2024-02-17] MEDS ORDERED: NEOSTIGMINE 1 MG/ML 10 ML VIAL ONE (08:21)
[2024-02-17] MEDS ORDERED: PROPOFOL 10 MG/ML 20 ML VIAL IV ONE (08:21)
[2024-02-17] MEDS ORDERED: ePHEDrine 50 MG/ML 1 ML VIAL ONE (08:21)
[2024-02-17] MEDS ORDERED: ROCURONIUM 10 MG/ML (5 ML VIAL) IV ONE (08:21)
[2024-02-17] MEDS: ACETAMINOPHEN TAB 500 MG TAB PO PRN (08:23)
[2024-02-17] MEDS: LIDOCAINE 1%-EPI 1:100,000 20 ML VIAL SQ ONE ×2 (08:25→08:44)
[2024-02-17] MEDS: ONDANSETRON 4 MG/2 ML VIAL IVP ONE (08:25)
[2024-02-17] MEDS: HEPARIN SODIUM,PORCINE 5,000 UNIT/ML 1 ML VIAL SQ PRN (08:26)
[2024-02-17] MEDS: DEXAMETHASONE SOD PHOSPHATE 4 MG/ML 1 ML VIAL IV ONE (08:26)
[2024-02-17] MEDS: fentaNYL (PF) 50 MCG/ML 2 ML AMP IV PRN (09:16)
--- NOTE | 2024-02-17 09:16 | P.OP ---
Date of Procedure: 02/17/24 Preoperative Diagnosis: Cholecystitis Postoperative Diagnosis: Cholecystitis Procedure(s) Performed: Laparoscopic cholecystectomy Anesthesia: ANGELA Surgeon: Michele Willis Pathology: other (Gallbladder) Condition: stable Disposition: PACU Description of Procedure: The patient was placed on the operating table. The patient received a general endotracheal tube anesthesia. The patients abdomen was prepped and draped in the usual sterile fashion. Through an infraumbilical stab incision, the fasci a of the anterior abdominal wall was grasped with a pair of Kochers and then the Veress needle was placed in the peritoneal cavity. Position of the Veress needle was confirmed with positive drop test. The abdomen was then insufflated. After adequate insufflation, the 10 mm trocar was placed in the peritoneal cavity. Following this the laparoscope was placed in the peritoneal cavity. The patient was placed in the head-up, right side up position and then a 5 mm trocar was placed in the right lateral and right subcostal position under direct visualization. A 8 mm trocar was placed in the epigastric position. The gallbladder was grasped in the fundus and infundibulum. Traction on the gallbladder was placed in the lateral and the cephalad positions. The triangle of Calot was visualized.. The cystic duct was bluntly dissected until the union of the cystic duct and common bile duct was seen. A critical view of safety was achieved. The cystic duct was then divided and sealed with the Harmonic scissors. A PDS Endoloop was then placed throughout the cystic duct stump. The cystic artery divided and sealed with the Harmonic scissors. The gallbladder was then removed from the liver bed using Harmonic scissors. The gallbladder was then extracted through the epigastric port site. Operative field was checked for any bleeding spots and Harmonic scissors was used to coagulate the liver bed. The abdomen was irrigated. The trocars were removed. The skin was closed using interrupted 3-0 Vicryl suture. Dermabond dressing were applied. The patient tolerated the procedure well.
[2024-02-17 09:24] VITALS: TEMP 97.4
[2024-02-17 11:45] VITALS: BP 110/70; PULSE 56; RESP 20
[2024-02-17] MEDS: ONDANSETRON ODT 4 MG TAB PO STA (11:56)
== END 2024-02-17 13:24 | disposition home or self-care (01) ==
LOC: OR 07:20
PROVIDERS: ATTEND Surgery
DX: K81.1 Chronic cholecystitis (principal); I10 Essential (primary) hypertension; K21.9 Gastro-esophageal reflux disease without esophagitis; G35 Multiple sclerosis; Z88.6 Allergy status to analgesic agent; Z88.5 Allergy status to narcotic agent; Z88.8 Allergy status to other drugs, medicaments and biological substances; Z79.899 Other long term (current) drug therapy
CPT/HCPCS: 47562; 81025; 88304; 84132; J2250; J0330; J1644; J1100; J2710; J0690; J2405; J2003; J3010; J2704; J1596

== ENCOUNTER 2024-06-21 20:17 | Emergency (ER) | payer BC ==
[2024-06-21 20:26] VITALS: TEMP 98.3
--- NOTE | 2024-06-21 21:31 | ED ---
Chest Pain HPI - General Source: patient, RN notes reviewed Mode of arrival: ambulatory Limitations: no limitations <Juaquin Denis - Last Filed: 06/21/24 21:28> <Roly Poe - Last Filed: 06/22/24 01:49> - General Chief Complaint: Chest Pain Stated Complaint: Chest Pain/Dizzy Time Seen by Provider: 06/21/24 20:35 - History of Present Illness Initial Comments: Quick note: This is a 44-year-old female presenting with left chest pain (11/09) x 2 hours. Patient states pain radiates to her back and left shoulder. Describes pain in chest as squeezing/stabbing and pain in back as constant and "digging". Endorses associated dizziness and "skipped beats". Denies dyspnea, diaphoresis, nausea/vomiting. Endorses history of stress test. (Juaquin Denis) Dictation was produced using Artaic dictation software. please excuse any grammatical, word or spelling errors. Chief Complaint: 44-year-old female chest pain History of Present Illness: Patient is a 44-year-old female history of hypertension. States that her father had a heart attack in his 30s. Presents to the emergency department with pressure-like sensation to the substernal chest. States it relates to the left shoulder and interscapular area. States it is nonpleuritic. Patient denies any cardiac history. She does not smoke. Associated diaphoresis. The ROS documented in this emergency department record has been reviewed and confirmed by me. Those systems with pertinent positive or negative responses have been documented in the HPI. All other systems are other negative and/or noncontributory. (Roly Poe) - Related Data Home Medications Medication Instructions Recorded Confirmed Furosemide [Lasix] 20 mg PO DAILY 01/26/24 02/17/24 Melatonin 10 mg PO HS 02/16/24 02/17/24 busPIRone HCL 5 mg PO BID 02/16/24 02/17/24 lisinopriL [Zestril] 20 mg PO BID 02/16/24 02/17/24 Previous Rx's Medication Instructions Recorded Pantoprazole [Protonix] 40 mg PO DAILY 30 Days #37 tab 01/27/24 Acetaminophen Tab [Tylenol] 650 mg PO Q6H #30 tab 02/17/24 Docusate [Colace] 100 mg PO BID #20 capsule 02/17/24 Ondansetron [Zofran] 4 mg PO Q8HR PRN #20 tab 02/17/24 Sucralfate [Carafate] 1 gm PO BID #60 tab 02/17/24 oxyCODONE HCL [OxyIR] 5 mg PO Q6H PRN 3 Days #10 tab 02/17/24 Allergies Allergy/AdvReac Type Severity Reaction Status Date / Time amlodipine [From Norvasc] Allergy Swelling Verified 06/21/24 20:26 morphine Allergy Rash/Hives Verified 06/21/24 20:26 ketamine AdvReac Hallucinati Verified 06/21/24 20:26 ons ketorolac tromethamine AdvReac Nausea & Verified 06/21/24 20:26 [From Toradol] Vomiting paper tape Allergy Mild Rash/Hives Uncoded 06/21/24 20:26 Review of Systems ROS Other: All systems not noted in ROS Statement are negative. <Juaquin Denis - Last Filed: 06/21/24 21:28> ROS Other: All systems not noted in ROS Statement are negative. <Roly Poe - Last Filed: 06/22/24 01:49> ROS Statement: Those systems with pertinent positive or pertinent negative responses have been documented in the HPI. Past Medical History Past Medical History: Musculoskeletal Disorder Additional Past Medical History / Comment(s): bradycardia, Multiple Sclerosis. Obstetric history: She has had 3 vaginal deliveries and 2 spontaneous abortions, cholestasis of . O+, abs neg, Rub Imm, RPR NR, Hep B neg. History of Any Multi-Drug Resistant Organisms: None Reported Past Surgical History: Tubal Ligation, Uterine Ablation Additional Past Surgical History / Comment(s): D&C, breast implants, Past Anesthesia/Blood Transfusion Reactions: No Reported Reaction Additional Past Anesthesia/Blood Transfusion Reaction / Comment(s): no hx blood transfusion Past Psychological History: Anxiety Smoking Status: Never smoker Past Alcohol Use History: None Reported Past Drug Use History: None Reported - Past Family History Father Family Medical History: Diabetes Mellitus, Hypertension, Myocardial Infarction ([place]) Additional Family Medical History / Comment(s): Father is alive at age 66 and had heart attack late 30's; hx CABG Mother Family Medical History: Hypertension Additional Family Medical History / Comment(s): Mother is alive at age 62 with history of gallstones. Brother(s) Family Medical History: No Reported History Additional Family Medical History / Comment(s): Patient has 2 brothers and one sister. Her sister has chronic workup for meningitis-type symptoms. Siblings have not been diagnosed with MS. Patient has 2 children with primary immunodeficiency. <Juaquin Denis - Last Filed: 06/21/24 21:28> General Exam Limitations: no limitations <Juaquin Denis - Last Filed: 06/21/24 21:28> <Roly Poe - Last Filed: 06/22/24 01:49> - General Exam Comments Initial Comments: Visual Physical Exam Vital signs reviewed General: Well-appearing, nontoxic, no acute distress. Head: Normocephalic, atraumatic Eyes: PERRLA, EOMI ENT: Airway patent Chest: Nonlabored breathing Skin: No visual rash, normal skin tone Neuro: Alert and oriented 3 Musculoskeletal: No gross abnormalities (Juaquin Denis) PHYSICAL EXAM: General Impression: Alert and oriented x3, not in acute distress HEENT: Normocephalic atraumatic, extra-ocular movements intact, pupils equal and reactive to light bilaterally, mucous membranes moist. Cardiovascular: Heart regular rate and rhythm Chest: Able to complete full sentences, no retractions, no tachypnea Abdomen: abdomen soft, non-tender, non-distended, no organomegaly Musculoskeletal: Pulses present and equal in all extremities, no peripheral edema Motor: no focal deficits noted Neurological: CN II-XII grossly intact, no focal motor or sensory deficits noted Skin: Intact with no visualized rashes Psych: Normal affect and mood (Roly Poe) Course Vital Signs 06/21/24 06/21/24 06/21/24 20:24 22:09 23:00 Temperature 98.3 F Pulse Rate 59 L 59 L 63 Respiratory 18 16 16 Rate Blood Pressure 100/74 116/81 100/68 O2 Sat by Pulse 100 98 100 Oximetry Chest Pain MDM <Juaquin Denis - Last Filed: 06/21/24 21:28> <Roly Poe - Last Filed: 06/22/24 01:49> - MDM I completed the quick note portion of this chart signed ERLINDA Delaney (Juaquin Deins) My EKG interpretation: Ventricular rate 67, sinus rhythm, NH 132, QRS 86, QTc 14. No NH prolongation, no QTC prolongation, no ST or T-wave changes noted. Overall, this EKG is unremarkable Was pt. sent in by a medical professional or institution (MALINA Jackson, SENIOR HARDWARE ENGINEER, urgent care, hospital, or chcf...) When possible be specific @ -No Did you speak to anyone other than the patient for history (EMS, parent, family, police, friend...)? What history was obtained from this source @ -No Did you review nursing and triage notes (agree or disagree)? Why? @ -I reviewed and agree with nursing and triage notes Were old charts reviewed (outside hosp., previous admission, EMS record, old EKG, old radiological studies, urgent care reports/EKG's, chcf records)? Report findings @ -No old charts were reviewed Differential Diagnosis (chest pain, altered mental status, abdominal pain women, abdominal pain men, vaginal bleeding, musculoskeletal, weakness, fever, dyspnea, syncope, headache, dizziness, GI bleed, back pain, seizure, CVA, palpatations, mental health)? @ -Differential Chest Pain: Stable Angina, Unstable Angina, STEMI, NSTEMI Aortic Dissection, Pneumothorax, Musculoskeletal, Esophageal Spasm GERD, Cholecystitis, Pancreatitis, Zoster, this is not meant to be an all-inclusive list. EKG interpreted by me (3pts min.). @ -See above X-rays interpreted by me (1pt min.). @ -Chest x-ray is nonacute CT interpreted by me (1pt min.). @ -None done U/S interpreted by me (1pt. min.). @ -None done What testing was considered but not performed or refused? (CT, X-rays, U/S, labs)? Why? @ -None What meds were considered but not given or refused? Why? @ -None Was smoking cessation discussed for >3mins.? @ -No Were there social determinants of health that impacted care today? How? (Homelessness, low income, unemployed, alcoholism, drug addiction, transportation, low edu. Level, literacy, decrease access to med. care, penitentiary, rehab)? @ -No Was there de-escalation of care discussed even if they declined (Discuss DNR or withdrawal of care, Hospice)? DNR status @ -No What co-morbidities impacted this encounter? (DM, HTN, Smoking, COPD, CAD, Cancer, CVA, ARF, Chemo, Hep., AIDS, mental health diagnosis, sleep apnea, morbid obesity)? @ -Family history of coronary artery disease Was patient admitted / discharged? Hospital course, mention meds given and route, prescriptions, significant lab abnormalities, going to OR and other pertinent info. @ -44-year-old female presents to the emergency department with atypical chest pain typical features. Vital signs are stable. EKG is unremarkable. Patient does have significant history including hypertension and family history. Laboratory evaluation obtained. Labs within acceptable limits. Patient offered observation admission for cardiac monitoring cardiology consultation refused would prefer to be discharged with second troponin outpatient follow-up with cardiology. States that in December she had a normal stress test. Troponins negative. Patient reevaluated at bedside at 1:50 AM found to be similar condition. Did you discuss the management of the patient with other professionals (professionals i.e. , PA, SENIOR HARDWARE ENGINEER, lab, RT, psych nurse, social media sr strategy manager, bin packer, teacher, loan service officer, catalytic case operator)? Give summary @ -No Was critical care preformed (if so, how long)? @ -No Undiagnosed new problem with uncertain prognosis? @ -No Drug Therapy requiring intensive monitoring for toxicity (Heparin, Nitro, Insulin, Cardizem)? @ -No Were any procedures done? @ -No Diagnosis/symptom? Acute, or Chronic, or Acute on Chronic? Uncomplicated (without systemic symptoms) or Complicated (systemic symptoms)? @ -Chest pain Side effects of treatment? @ -No Exacerbation, Progression, or Severe Exacerbation? @ -No Poses a threat to life or bodily function? How? (Chest pain, [place], [place], pneumonia, PE, COPD, DKA, ARF, appy, cholecystitis, CVA, Diverticulitis, Homicidal, Suicidal, threat to staff... and all critical care pts) @ -yes (Roly Poe) Disposition <Juaquin Denis - Last Filed: 06/21/24 21:28> Is patient prescribed a controlled substance at d/c from ED?: No Time of Disposition: 01:49 <Roly Poe - Last Filed: 06/22/24 01:49> Clinical Impression: Chest pain Disposition: HOME SELF-CARE Condition: Fair Instructions (If sedation given, give patient instructions): Chest Pain (ED) Referrals: Kacie Matthews MD [Primary Care Provider] - 1-2 days Ej Priest MD [Medical Doctor] - 1-2 days
--- NOTE | 2024-06-21 22:01 | XR ---
EXAMINATION TYPE: XR chest 2V DATE OF EXAM: 06/21/2024 9:39 PM COMPARISON: 02/12/2024 CLINICAL INDICATION: Female, 44 years old with history of Chest Pain, TECHNIQUE: XR chest 2V view(s) obtained. FINDINGS: The heart size is normal. The pulmonary vasculature is normal. The lungs are clear. IMPRESSION: 1. No acute pulmonary process. [facility], , 06/21/2024 9:58 PM
[2024-06-21 22:11] VITALS: RESP 16
[2024-06-21 22:17] LABS: Basophils # (A) 0.08 10*3/uL (0.00-0.10); Eosinophils # (A) 0.18 10*3/uL (0.04-0.35); Eosinophils % (A) 2.3 %; HCT 40.6 % (37.2-46.3); Lymphocytes # (A) 2.95 10*3/uL (0.90-5.00); Lymphocytes % (A) 38.5 %; MCH 29.5 pg (27.0-32.0); MCHC 34.5 g/dL (32.0-37.0); MCV 85.7 fL (80.0-97.0); Mean Platelet Volume 9.1 fL (9.5-12.2); Monocytes # (A) 0.84 10*3/uL (0.20-1.00); Neutrophils % (A) 47.1 %; Platelet Count 423 10*3/uL (140-440); RBC 4.74 10*6/uL (4.10-5.20); RDW 12.3 % (11.5-14.5); WBC 7.66 10*3/uL (4.50-10.00)
[2024-06-21 22:36] LABS: ALT 17 U/L (4-34); AST 24 U/L (14-36); African American GFR (CKD) >90 (>60 ml/min/1.73 sqM); Albumin 4.2 g/dL (3.5-5.0); Alkaline Phosphatase 65 U/L (38-126); Anion Gap 11 mmol/L; Blood Urea Nitrogen 8 mg/dL (7-17); Carbon Dioxide 21 mmol/L (22-30); Chloride 103 mmol/L (98-107); Glucose 87 mg/dL (74-99); Magnesium 2.1 mg/dL (1.6-2.3); Non-African American GFR(CKD) >90 (>60 ml/min/1.73 sqM); Potassium 4.3 mmol/L (3.5-5.1); Sodium 135 mmol/L (137-145); Total Bilirubin 0.6 mg/dL (0.2-1.3); Total Protein 6.6 g/dL (6.3-8.2)
[2024-06-21 22:40] LABS: Partial Thromboplastin Time 26.1 sec (22.0-30.0); Prothrombin Time 11.4 sec (10.0-12.5)
[2024-06-21] MEDS: ASPIRIN 81 MG PO STA (23:17)
[2024-06-22 01:58] VITALS: BP 110/64; PULSE 58
== END 2024-06-22 01:58 | disposition home or self-care (01) ==
LOC: EC 20:17
DX: R07.89 Other chest pain (principal); Z88.8 Allergy status to other drugs, medicaments and biological substances; Z88.5 Allergy status to narcotic agent
CPT/HCPCS: 36415; 71046; 80053; 83735; 84484; 85025; 85610; 85730; 93005; 99285

== ENCOUNTER 2024-07-16 20:02 | Inpatient (IN) | payer BC ==
--- NOTE | 2024-07-16 20:53 | ED ---
Dizziness HPI - General Chief Complaint: Dizziness Stated Complaint: dizzy pain MS flare up Time Seen by Provider: 07/16/24 20:34 Source: patient, RN notes reviewed, old records reviewed Mode of arrival: ambulatory Limitations: no limitations - History of Present Illness Initial Comments: This is a 44 female to the ER for evaluation. Patient coming in with progressively worsening MS exacerbation going on for a week to greater than a week. Left arm left leg weakness numbness tingling, eye pain as well today left, these were maybe were symptoms that she has had in the past but symptoms that are typical for her MS. Patient has not had exacerbation in greater than 5 years MD Complaint: dizziness, lightheadedness, other (Left arm left leg numbness and tingling left eye pain) Timing: gradual onset Description: lightheadedness History of Same: Yes History of Trauma: No Severity: moderate Improves With: nothing Worsens With: nothing Associated Symptoms: denies other symptoms - Related Data Home Medications Medication Instructions Recorded Confirmed Furosemide [Lasix] 20 mg PO DAILY 01/26/24 02/17/24 Melatonin 10 mg PO HS 02/16/24 02/17/24 busPIRone HCL 5 mg PO BID 02/16/24 02/17/24 lisinopriL [Zestril] 20 mg PO BID 02/16/24 02/17/24 Previous Rx's Medication Instructions Recorded Pantoprazole [Protonix] 40 mg PO DAILY 30 Days #37 tab 01/27/24 Acetaminophen Tab [Tylenol] 650 mg PO Q6H #30 tab 02/17/24 Docusate [Colace] 100 mg PO BID #20 capsule 02/17/24 Ondansetron [Zofran] 4 mg PO Q8HR PRN #20 tab 02/17/24 Sucralfate [Carafate] 1 gm PO BID #60 tab 02/17/24 oxyCODONE HCL [OxyIR] 5 mg PO Q6H PRN 3 Days #10 tab 02/17/24 Allergies Allergy/AdvReac Type Severity Reaction Status Date / Time amlodipine [From [facility]] Allergy Swelling Verified 07/16/24 20:25 morphine Allergy Rash/Hives Verified 07/16/24 20:25 ketamine AdvReac Hallucinati Verified 07/16/24 20:25 ons ketorolac tromethamine AdvReac Nausea & Verified 07/16/24 20:25 [From Toradol] Vomiting paper tape Allergy Mild Rash/Hives Uncoded 07/16/24 20:25 Review of Systems ROS Statement: Those systems with pertinent positive or pertinent negative responses have been documented in the HPI. ROS Other: All systems not noted in ROS Statement are negative. Past Medical History Past Medical History: Musculoskeletal Disorder Additional Past Medical History / Comment(s): bradycardia, Multiple Sclerosis. Obstetric history: She has had 3 vaginal deliveries and 2 spontaneous abortions, cholestasis of . O+, abs neg, Rub Imm, RPR NR, Hep B neg. History of Any Multi-Drug Resistant Organisms: None Reported Past Surgical History: Tubal Ligation, Uterine Ablation Additional Past Surgical History / Comment(s): D&C, breast implants, Past Anesthesia/Blood Transfusion Reactions: No Reported Reaction Additional Past Anesthesia/Blood Transfusion Reaction / Comment(s): no hx blood transfusion Past Psychological History: Anxiety Smoking Status: Never smoker Past Alcohol Use History: None Reported Past Drug Use History: None Reported - Past Family History Father Family Medical History: Diabetes Mellitus, Hypertension, Myocardial Infarction ([place]) Additional Family Medical History / Comment(s): Father is alive at age 66 and had heart attack late 30's; hx CABG Mother Family Medical History: Hypertension Additional Family Medical History / Comment(s): Mother is alive at age 62 with history of gallstones. Brother(s) Family Medical History: No Reported History Additional Family Medical History / Comment(s): Patient has 2 brothers and one sister. Her sister has chronic workup for meningitis-type symptoms. Siblings have not been diagnosed with MS. Patient has 2 children with primary immunodeficiency. General Exam Limitations: no limitations General appearance: alert, in no apparent distress Head exam: Present: atraumatic, normocephalic, normal inspection Eye exam: Present: normal appearance, PERRL, EOMI. Absent: scleral icterus, conjunctival injection, periorbital swelling ENT exam: Present: normal exam, mucous membranes moist Neck exam: Present: normal inspection. Absent: tenderness, meningismus, lymphadenopathy Respiratory exam: Present: normal lung sounds bilaterally. Absent: respiratory distress, wheezes, rales, rhonchi, stridor Cardiovascular Exam: Present: regular rate, normal rhythm, normal heart sounds. Absent: systolic murmur, diastolic murmur, rubs, gallop, clicks GI/Abdominal exam: Present: soft, normal bowel sounds. Absent: distended, tenderness, guarding, rebound, rigid Extremities exam: Present: normal inspection, full ROM, normal capillary refill. Absent: tenderness, pedal edema, joint swelling, calf tenderness Back exam: Present: normal inspection Neurological exam: Present: alert, oriented X3, CN II-XII intact Psychiatric exam: Present: normal affect, normal mood Skin exam: Present: warm, dry, intact, normal color. Absent: rash Course Vital Signs 07/16/24 20:21 Temperature 98.2 F Pulse Rate 103 H Respiratory 17 Rate Blood Pressure 110/64 O2 Sat by Pulse 97 Oximetry - Reevaluation(s) Reevaluation #1: 07/16/24 21:06 Medical records reviewed Reevaluation #2: 07/16/24 21:06 Patient symptoms unchanged Reevaluation #3: 07/16/24 21:06 Patient informed of results questions answered Reevaluation #4: Was pt. sent in by a medical professional or institution (, PA, DOCUMENT PHOTOGRAPHER, urgent care, hospital, or skilled nursing...) When possible be specific @ -no Did you speak to anyone other than the patient for history (EMS, parent, family, police, friend...)? What history was obtained from this source @ -no Did you review nursing and triage notes (agree or disagree)? Why? @ -agree Are old charts reviewed (outside hosp., previous admission, EMS record, old EKG, old radiological studies, urgent care reports/EKG's, skilled nursing records)? Report findings @ -yes Differential Diagnosis (chest pain, altered mental status, abdominal pain women, abdominal pain men, vaginal bleeding, weakness, fever, dyspnea, syncope, headache, dizziness, GI bleed, back pain, seizure, CVA, palpatations, mental health, musculoskeletal)? @ -prior EKG interpreted by me (3pts min.). @ -yes X-rays interpreted by me (1pt min.). @ -yes negative for acute disease CT interpreted by me (1pt min.). @ -no U/S interpreted by me (1pt. min.). @ -no What testing was considered but not performed or refused? (CT, X-rays, U/S, labs)? Why? @ -none What meds were considered but not given or refused? Why? @ -none Did you discuss the management of the patient with other professionals (professionals i.e. , PA, DOCUMENT PHOTOGRAPHER, lab, RT, psych nurse, social media assistant, abrasive coating machine operator, teacher, chief investment officer, caser in)? Give summary @ -no Was smoking cessation discussed for >3mins.? @ -no Was critical care preformed (if so, how long)? @ -no Were there social determinants of health that impacted care today? How? (Homelessness, low income, unemployed, alcoholism, drug addiction, transpor tation, low edu. Level, literacy, decrease access to med. care, prison, rehab)? @ -none Was there de-escalation of care discussed even if they declined (Discuss DNR or withdrawal of care, Hospice)? DNR status @ -no What co-morbidities impacted this encounter? (DM, HTN, Smoking, COPD, CAD, Cancer, CVA, ARF, Chemo, Hep., AIDS, mental health diagnosis, sleep apnea, morbid obesity)? @ -none Was patient admitted / discharged? Hospital course, mention meds given and route, prescriptions, significant lab abnormalities, going to OR and other pertinent info. @ - Undiagnosed new problem with uncertain prognosis? @ -no Drug Therapy requiring intensive monitoring for toxicity (Heparin, Nitro, Insulin, Cardizem)? @ -no Were any procedures done? @ -no Diagnosis/symptom? @ - Acute, or Chronic, or Acute on Chronic? @ -Acute Uncomplicated (without systemic symptoms) or Complicated (systemic symptoms)? @ -Complicated Side effects of treatment? @ -no Exacerbation, Progression, or Severe Exacerbation? @ -exacerbation Poses a threat to life or bodily function? How? (Chest pain, [place], [place], pneumonia, PE, COPD, DKA, ARF, appy, cholecystitis, CVA, Diverticulitis, Homicidal, Suicidal, threat to staff... and all critical care pts) @ -yes Reevaluation #5: Differential Weakness: Hypoglycemia, shock, sepsis, hyponatremia, anemia, infection, [place], ETOH, adverse medicine reaction, overdose, stroke, this is not meant to be an all-inclusive list. - Consultations Consultation #1: Spoke with [facility] who agrees to admit this patient Medical Decision Making - Medical Decision Making 44 female will be admitted for MS exacerbation - Radiology Data Radiology results: report reviewed (CT brain negative for acute disease), image reviewed Disposition Clinical Impression: Exacerbation of multiple sclerosis Disposition: ADMITTED IP TO THIS HOSP Condition: Fair Is patient prescribed a controlled substance at d/c from ED?: No Referrals: Kacie Matthews MD [Primary Care Provider] - 1-2 days Time of Disposition: 21:00
[2024-07-16] MEDS ORDERED: NALOXONE 0.4 MG/ML 1 ML VIAL IV PRN (21:08)
--- NOTE | 2024-07-16 21:40 | CT ---
EXAMINATION TYPE: CT brain wo con DATE OF EXAM: 07/16/2024 9:26 PM COMPARISON: CT brain 05/02/2021. CLINICAL INDICATION: Female, 44 years old with history of weakness, weakness, MS flare TECHNIQUE: Brain: Axial CT images of the brain were obtained with coronal and sagittal reformats created and rev iewed. Contrast used: None. Oral contrast used: None. CT DLP: 1098.4 mGycm, Automated exposure control for dose reduction was used. FINDINGS: Brain: Extra-axial spaces: No abnormal extra-axial fluid collections. Ventricular system: Within normal limits Cerebral parenchyma: No acute intraparenchymal hemorrhage or mass effect. The syed-white junction is well differentiated. Cerebellum: Unremarkable. Mass effect: No evidence of midline shift. Intracranial vasculature: unremarkable Soft tissues: Normal. Calvarium/osseous structures: No depressed skull fracture. Paranasal sinuses and mastoid air cells: Mild scattered paranasal sinus disease. Visualized orbits: Orbital contents are intact. IMPRESSION: No acute intracranial process. [facility], , 07/16/2024 9:38 PM
[2024-07-16] MEDS: SODIUM CHLORIDE 0.9% 1,000 ML IV SCH (22:23)
[2024-07-16] MEDS: methylPREDNISolone SOD SUCCIN 250 MG in SODIUM CHLORIDE 0.9% 100 ML IVPB STA (22:23)
[2024-07-17 02:20] LABS: Basophils # (A) 0.08 10*3/uL (0.00-0.10); Basophils % (A) 0.8 %; Eosinophils # (A) 0.03 10*3/uL (0.04-0.35); Eosinophils % (A) 0.3 %; HCT 43.5 % (37.2-46.3); HGB 14.9 g/dL (12.0-15.0); Lymphocytes # (A) 1.08 10*3/uL (0.90-5.00); Lymphocytes % (A) 10.2 %; MCH 29.2 pg (27.0-32.0); MCHC 34.3 g/dL (32.0-37.0); MCV 85.1 fL (80.0-97.0); Monocytes # (A) 0.16 10*3/uL (0.20-1.00); Monocytes % (A) 1.5 %; Neutrophils # (A) 9.23 10*3/uL (1.80-7.70); Neutrophils % (A) 86.9 %; Platelet Count 256 10*3/uL (140-440); RBC 5.11 10*6/uL (4.10-5.20); RDW 12.5 % (11.5-14.5); WBC 10.61 10*3/uL (4.50-10.00)
[2024-07-17 02:33] LABS: ALT 41 U/L (4-34); African American GFR (CKD) >90 (>60 ml/min/1.73 sqM); Anion Gap 13 mmol/L; Blood Urea Nitrogen 13 mg/dL (7-17); Calcium 9.7 mg/dL (8.4-10.2); Carbon Dioxide 20 mmol/L (22-30); Chloride 100 mmol/L (98-107); Glucose 84 mg/dL (74-99); Non-African American GFR(CKD) >90 (>60 ml/min/1.73 sqM); Sodium 133 mmol/L (137-145)
[2024-07-17 02:38] LABS: Magnesium 2.2 mg/dL (1.6-2.3); Phosphorus 4.1 mg/dL (2.5-4.5); Potassium 5.5 mmol/L (3.5-5.1)
[2024-07-17 02:39] LABS: AST 36 U/L (14-36); Albumin 4.7 g/dL (3.5-5.0); Alkaline Phosphatase 61 U/L (38-126); Total Bilirubin 1.3 mg/dL (0.2-1.3); Total Protein 7.2 g/dL (6.3-8.2)
[2024-07-17] MEDS: methylPREDNISolone SOD SUCCIN 250 MG in SODIUM CHLORIDE 0.9% 100 ML IVPB SCH (06:45)
[2024-07-17] MEDS: methylPREDNISolone SOD SUCCIN 250 MG in SODIUM CHLORIDE 0.9% 100 ML IVPB ONE (09:54)
[2024-07-17] MEDS ORDERED: ONDANSETRON 4 MG/2 ML VIAL IVP PRN (10:05)
--- NOTE | 2024-07-17 10:44 | P.HPIM ---
History of Present Illness H&P Date: 07/17/24 History of present illness; patient is a 44-year-old lady with past medical history significant for MS presents the ER because of left arm and left leg weakness for a week. Patient stated that she was all right 2 weeks back when she started noticing burning pain in her lower extremities, she also noticed that she was having spasm of her left upper extremity which was very painful. This was followed by numbness and tingling in her left upper and lower extremity. Yesterday she woke up noticing pain behind her left eye. Patient also complains of dizziness at the time. Patient's symptoms are similar to her exacerbation of MS. Patient last flareup was 5 years back. Because of these symptoms, patient came to the ER Initial lab work done in the ER showed CBC 10.61, hemoglobin 14.9, platelet count 256, sodium 133, potassium 5.5, BUN 13, creatinine 0.49, AST 36, ALT 41, albumin 4.7 CT head done showed no acute intracranial process Patient admitted to internal medicine service REVIEW OF SYSTEMS: CONSTITUTIONAL: No fever, no malaise, no fatigue. HEENT: No recent visual problems or hearing problems. Denied any sore throat. CARDIOVASCULAR: No chest pain, orthopnea, PND, no palpitations, no syncope. PULMONARY: No shortness of breath, no cough, no hemoptysis. GASTROINTESTINAL: No diarrhea, no nausea, no vomiting, no abdominal pain. NEUROLOGICAL: As mentioned above HEMATOLOGICAL: Denies any bleeding or petechiae. GENITOURINARY: Denies any burning micturition, frequency, or urgency. MUSCULOSKELETAL/RHEUMATOLOGICAL: Denies any joint pain, swelling, or any muscle pain. ENDOCRINE: Denies any polyuria or polydipsia. The rest of the 14-point review of systems is negative. PHYSICAL EXAMINATION: GENERAL: The patient is alert and oriented x3, not in any acute distress. Well developed, well nourished. HEENT: Pupils are round and equally reacting to light. EOMI. No scleral icterus. No conjunctival pallor. Normocephalic, atraumatic. No pharyngeal erythema. No thyromegaly. CARDIOVASCULAR: S1 and S2 present. No murmurs, rubs, or gallops. PULMONARY: Chest is clear to auscultation, no wheezing or crackles. ABDOMEN: Soft, nontender, nondistended, normoactive bowel sounds. No palpable organomegaly. MUSCULOSKELETAL: No joint swelling or deformity. EXTREMITIES: No cyanosis, clubbing, or pedal edema. NEUROLOGICAL: Gross neurological examination did not reveal any focal deficits. SKIN: No rashes. Assessment and plan Acute exacerbation of MS Hyponatremia Hyperkalemia Hypertension Monitor vital signs Monitor CBC Monitor CMP Ordered neurochecks Ordered IV Solu-Medrol Ordered MRI brain Ordered MRI cervical spine Resume home meds Hold lisinopril and Lasix as patient blood pressures normotensive Ordered Protonix for GI prophylaxis Ordered Neurontin Ordered calcium and vitamin supplementation Consult neurology Labs and medication were reviewed.. Continue same treatment. Continue with symptomatic treatment. Resume home medication. Monitor labs and vitals. DVT and GI prophylaxis. Further recommendations as per clinical course of the patient Dictation was produced using [employer] dictation software. please excuse any grammatical, word or spelling errors. Past Medical History Past Medical History: Musculoskeletal Disorder Additional Past Medical History / Comment(s): bradycardia, Multiple Sclerosis. Obstetric history: She has had 3 vaginal deliveries and 2 spontaneous abortions, cholestasis of . O+, abs neg, Rub Imm, RPR NR, Hep B neg. History of Any Multi-Drug Resistant Organisms: None Reported Past Surgical History: Tubal Ligation, Uterine Ablation Additional Past Surgical History / Comment(s): D&C, breast implants, Past Anesthesia/Blood Transfusion Reactions: No Reported Reaction Additional Past Anesthesia/Blood Transfusion Reaction / Comment(s): no hx blood transfusion Past Psychological History: Anxiety Smoking Status: Never smoker Past Alcohol Use History: None Reported Past Drug Use History: None Reported - Past Family History Father Family Medical History: Diabetes Mellitus, Hypertension, Myocardial Infarction ([place]) Additional Family Medical History / Comment(s): Father is alive at age 66 and had heart attack late 30's; hx CABG Mother Family Medical History: Hypertension Additional Family Medical History / Comment(s): Mother is alive at age 62 with history of gallstones. Brother(s) Family Medical History: No Reported History Additional Family Medical History / Comment(s): Patient has 2 brothers and one sister. Her sister has chronic workup for meningitis-type symptoms. Siblings have not been diagnosed with MS. Patient has 2 children with primary immunodeficiency. Medications and Allergies Home Medications Medication Instructions Recorded Confirmed Type Furosemide [Lasix] 20 mg PO DAILY 01/26/24 07/17/24 History busPIRone HCL 5 mg PO DAILY 02/16/24 07/17/24 History lisinopriL [Zestril] 40 mg PO DAILY 02/16/24 07/17/24 History Baclofen 10 mg PO TID PRN 07/17/24 07/17/24 History Allergies Allergy/AdvReac Type Severity Reaction Status Date / Time amlodipine [From [facility]] Allergy Swelling Verified 07/17/24 09:14 morphine Allergy Rash/Hives Verified 07/17/24 09:14 ketamine AdvReac Hallucinati Verified 07/17/24 09:14 ons ketorolac tromethamine AdvReac Nausea & Verified 07/17/24 09:14 [From Toradol] Vomiting paper tape Allergy Mild Rash/Hives Uncoded 07/17/24 09:14 Physical Exam Vitals: Vital Signs Temp Pulse Resp BP Pulse Ox 07/17/24 07:57 69 16 96/71 99 07/17/24 06:28 97.9 F 96 20 95/61 99 07/17/24 01:23 84 18 100/73 96 07/16/24 20:21 98.2 F 103 H 17 110/64 97 Intake and Output 07/16/24 07/17/24 07/17/24 22:59 06:59 14:59 Other: Weight 70.307 kg Results CBC & Chem 7: 07/17/24 02:00 07/17/24 02:00 Labs: Abnormal Lab Results - Last 24 Hours (Table) 07/17/24 07/17/24 Range/Units 02:00 02:00 WBC 10.61 H (4.50-10.00) 10*3/uL MPV 9.0 L (9.5-12.2) fL Neutrophils # 9.23 H (1.80-7.70) 10*3/uL Monocytes # 0.16 L (0.20-1.00) 10*3/uL Eosinophils # 0.03 L (0.04-0.35) 10*3/uL Sodium 133 L (137-145) mmol/L Potassium 5.5 H (3.5-5.1) mmol/L Carbon Dioxide 20 L (22-30) mmol/L Creatinine 0.49 L (0.52-1.04) mg/dL ALT 41 H (4-34) U/L
[2024-07-17] MEDS: GABAPENTIN 100 MG CAP PO SCH (11:11)
--- NOTE | 2024-07-17 11:28 | P.CNNES ---
History of Present Illness Consult date: 07/17/24 Requesting physician: Dl Moreira Reason for Consult: MS exacerbation History of Present Illness: This is a 44 year-old woman with history of multiple sclerosis who is not on disease modifying therapy, hypertension who presents to the emergency department because spasm, tightness, burning sensation and visual issues. She stated for the last 10 days she has been having bilateral inner thigh burning sensation which she had in past. Also burning sensation in back. Tight of chest, spasm of the lefts, fatigue, dizziness. Then rencetly pain in eyes and when she has pain with eyes or any visual issues she comes to hospital. She stopped taking her disease modifying therapy for her multiple sclerosis on her own and in past was on Gilenya. She followed-up with Dr. Ball for her MS and saw Dr. Barriga. She recently reached out to Dr. Ball office but she was notified he retired. She will follow-up with Dr. Lao's team. She had MS symptoms since 17 years old. Some of the work-up during this hospital visit consisted of: I reviewed the lab work-up. CT head: No acute intracranial process. I personally reviewed and agree with report. Review of Systems As per HPI. Past Medical History Past Medical History: Musculoskeletal Disorder Additional Past Medical History / Comment(s): bradycardia, Multiple Sclerosis. Obstetric history: She has had 3 vaginal deliveries and 2 spontaneous abortions, cholestasis of . O+, abs neg, Rub Imm, RPR NR, Hep B neg. History of Any Multi-Drug Resistant Organisms: None Reported Past Surgical History: Tubal Ligation, Uterine Ablation Additional Past Surgical History / Comment(s): D&C, breast implants, Past Anesthesia/Blood Transfusion Reactions: No Reported Reaction Additional Past Anesthesia/Blood Transfusion Reaction / Comment(s): no hx blood transfusion Past Psychological History: Anxiety Smoking Status: Never smoker Past Alcohol Use History: None Reported Past Drug Use History: None Reported - Past Family History Father Family Medical History: Diabetes Mellitus, Hypertension, Myocardial Infarction ([place]) Additional Family Medical History / Comment(s): Father is alive at age 66 and had heart attack late 30's; hx CABG Mother Family Medical History: Hypertension Additional Family Medical History / Comment(s): Mother is alive at age 62 with history of gallstones. Brother(s) Family Medical History: No Reported History Additional Family Medical History / Comment(s): Patient has 2 brothers and one sister. Her sister has chronic workup for meningitis-type symptoms. Siblings have not been diagnosed with MS. Patient has 2 children with primary immunodeficiency. Medications and Allergies Home Medications Medication Instructions Recorded Confirmed Type Furosemide [Lasix] 20 mg PO DAILY 01/26/24 07/17/24 History busPIRone HCL 5 mg PO DAILY 02/16/24 07/17/24 History lisinopriL [Zestril] 40 mg PO DAILY 02/16/24 07/17/24 History Baclofen 10 mg PO TID PRN 07/17/24 07/17/24 History Allergies Allergy/AdvReac Type Severity Reaction Status Date / Time amlodipine [From [facility]] Allergy Swelling Verified 07/17/24 09:14 morphine Allergy Rash/Hives Verified 07/17/24 09:14 ketamine AdvReac Hallucinati Verified 07/17/24 09:14 ons ketorolac tromethamine AdvReac Nausea & Verified 07/17/24 09:14 [From Toradol] Vomiting paper tape Allergy Mild Rash/Hives Uncoded 07/17/24 09:14 Physical Examination - Vital Signs Vital Signs: Vital Signs Temp Pulse Resp BP Pulse Ox 07/17/24 07:57 69 16 96/71 99 07/17/24 06:28 97.9 F 96 20 95/61 99 07/17/24 01:23 84 18 100/73 96 07/16/24 20:21 98.2 F 103 H 17 110/64 97 Intake and Output 07/16/24 07/17/24 07/17/24 22:59 06:59 14:59 Other: Weight 70.307 kg General: Lying in bed and appears in mild acute distress. Neuro: The patient is awake, alert, oriented to self, place and time. Is following simple commands. No aphasia or neglect. Pupils are round, and limitation with light reflex since was squinting in pain but appears reactive. Visual ramirez are full to confrontation. EOM is mildly limited because of pain but appears no nystamgus in all direction. Decrease sensation to touch on the left to touch. No facial weakness. Hearing is normal to hand rub bilaterally. Tongue is midline and moves side to side without difficulty. No dysarthria. Motor: Strength is somewhat limited because of some pain. Left arm extension appears ?4+ to 5-. Bilateral knee extension are 4+. Otherwise 5/5 throughout. Has spams of the left lower extremity. Senastion: Decrease to touch on the left. Cerebellar: Normal finger to nose bilaterally. Reflex: Patellar are 3+ bilaterally. Otherwise 2+ Plantars: Mute bilaterally Results - Laboratory Findings CBC and BMP: 07/17/24 02:00 07/17/24 02:00 Abnormal Lab Findings: Abnormal Labs 07/17/24 07/17/24 02:00 02:00 WBC 10.61 H MPV 9.0 L Neutrophils # 9.23 H Monocytes # 0.16 L Eosinophils # 0.03 L Sodium 133 L Potassium 5.5 H Carbon Dioxide 20 L Creatinine 0.49 L ALT 41 H Assessment and Plan Assessment: This is a 44 y/o woman with history of Multiple Sclerosis (MS) who stopped disease modifying therapy on her own about 3 years ago who presents because of spams, pain, , burning sensation of extremities/back and eye pain for the past 10 days. Likely MS exacerbation History of MS who stopped disease modifying therapy on her own about 3 years ago (was on Gilenya) Hypertension Plan: I ordered MRI Brain and Cervical spine. Please give her 1mg Ativan prior to A tivan. Patient was started on Soumedrol 250mg every 6 hours by ED on 07/16/2024 and I changed to 500mg bid for 3-5 days. Will resume baclofen PRN She is requesting pain medications and she was started on Osycodone PRN by primary team. PT and OT are consulted. Will defer the rest of medical management to primary team. Upon discharge, patient will attempt to follow-up with Dr. Lao's team for MS management. Thank you for the consultation. Time with Patient: Greater than 30
[2024-07-17] MEDS: PANTOPRAZOLE 40 MG TABLET PO SCH (11:57)
[2024-07-17] MEDS: BACLOFEN 10 MG TAB PO PRN (15:11)
[2024-07-17 17:29] LABS: Glucose,Whole Blood 108 mg/dL (70-110)
[2024-07-17] MEDS: CALCIUM CARB-VIT D 500 MG-5 MCG TAB PO SCH (17:42)
[2024-07-17] MEDS: BUTALB/APAP/CAFF 50-325-40MG TAB PO PRN (22:04)
[2024-07-17] MEDS: MELATONIN 3 MG TABLET PO PRN (22:04)
[2024-07-17] MEDS: HYDROmorphone 0.5 MG/0.5 ML SYRINGE IVP STA (22:43)
[2024-07-17] MEDS: methylPREDNISolone SOD SUCCIN 500 MG in SODIUM CHLORIDE 0.9% 100 ML IVPB SCH (23:22)
[2024-07-18] MEDS: ACETAMINOPHEN TAB 325 MG TAB PO PRN (02:23)
[2024-07-18 08:34] LABS: ALT 26 U/L (8-44); AST 16 U/L (13-35); Albumin/Globulin Ratio 2.11 Ratio (1.60-3.17); Alkaline Phosphatase 63 U/L (41-126); BUN/Creat Ratio 25.67 Ratio (12.00-20.00); Blood Urea Nitrogen 15.4 mg/dL (9.0-27.0); Calcium 9.1 mg/dL (8.7-10.3); Chloride 103 mmol/L (96-109); Globulin 1.9 g/dL (1.6-3.3); Glucose 141 mg/dL (70-110); Potassium 4.6 mmol/L (3.5-5.5); Sodium 134 mmol/L (135-145); Total Bilirubin 0.3 mg/dL (0.3-1.2); Total Protein 5.9 g/dL (6.2-8.2)
[2024-07-18] MEDS: ENOXAPARIN 40 MG/0.4 ML SYRINGE SQ SCH (09:03)
[2024-07-18] MEDS: busPIRone HCl 5 MG TAB PO SCH (09:03)
[2024-07-18 09:08] LABS: Glucose,Whole Blood 110 mg/dL (70-110)
[2024-07-18 09:42] LABS: Basophils # (A) 0.01 X 10*3/uL (0.00-0.10); Basophils % (A) 0.1 %; Eosinophils # (A) 0 X 10*3/uL (0.04-0.35); Eosinophils % (A) 0 %; HCT 39.5 % (37.2-46.3); Lymphocytes # (A) 0.83 X 10*3/uL (0.90-5.00); Lymphocytes % (A) 7.7 %; MCHC 32.9 g/dL (32.0-37.0); MCV 88.2 FL (80.0-97.0); Mean Platelet Volume 9.3 FL (9.5-12.2); Monocytes # (A) 0.37 X 10*3/uL (0.20-1.00); Monocytes % (A) 3.4 %; NRBC Per 100 WBC 0 X 10*3/uL (0.00-0.01); Neutrophils # (A) 9.47 X 10*3/uL (1.80-7.70); Neutrophils % (A) 88.1 %; Platelet Count 443 X 10*3/uL (140-440); RBC 4.48 X 10*6/uL (4.10-5.20); RDW 12.8 % (11.5-14.5); WBC 10.76 X 10*3/uL (4.50-10.00)
[2024-07-18] MEDS ORDERED: KETOROLAC 15 MG/ML 1 ML VIAL IVP PRN (11:14)
[2024-07-18] MEDS: HYDROmorphone 0.5 MG/0.5 ML SYRINGE IVP PRN (11:50)
[2024-07-18 12:26] LABS: Glucose,Whole Blood 140 mg/dL (70-110)
--- NOTE | 2024-07-18 14:21 | P.PN ---
Subjective Progress Note Date: 07/18/24 patient is a 44-year-old lady with past medical history significant for MS presents the ER because of left arm and left leg weakness for a week. Patient stated that she was all right 2 weeks back when she started noticing burning pain in her lower extremities, she also noticed that she was having spasm of her left upper extremity which was very painful. This was followed by numbness and tingling in her left upper and lower extremity. Yesterday she woke up noticing pain behind her left eye. Patient also complains of dizziness at the time. Patient's symptoms are similar to her exacerbation of MS. Patient last flareup was 5 years back. Because of these symptoms, patient came to the ER Initial lab work done in the ER showed CBC 10.61, hemoglobin 14.9, platelet count 256, sodium 133, potassium 5.5, BUN 13, creatinine 0.49, AST 36, ALT 41, albumin 4.7 CT head done showed no acute intracranial process Patient admitted to internal medicine service 07/18. Patient seen examined. States numbness of left upper extremity and left lower face has improved. Still complaining of muscle spasms. Still has numbness of left lower extremity REVIEW OF SYSTEMS: CONSTITUTIONAL: No fever, no malaise,. CARDIOVASCULAR: No chest pain, no palpitations, no syncope. PULMONARY: No shortness of breath, no cough, GASTROINTESTINAL: No diarrhea, no nausea, no vomiting, no abdominal pain. NEUROLOGICAL: No headaches, no weakness, PHYSICAL EXAMINATION: GENERAL: The patient is alert and oriented x3, not in any acute distress. Well developed, well nourished. HEENT: Pupils are round and equally reacting to light. EOMI. No scleral icterus. No conjunctival pallor. Normocephalic, atraumatic. No pharyngeal erythema. No thyromegaly. CARDIOVASCULAR: S1 and S2 present. No murmurs, rubs, or gallops. PULMONARY: Chest is clear to auscultation, no wheezing or crackles. ABDOMEN: Soft, nontender, nondistended, normoactive bowel sounds. No palpable organomegaly. MUSCULOSKELETAL: No joint swelling or deformity. EXTREMITIES: No cyanosis, clubbing, or pedal edema. NEUROLOGICAL: Gross neurological examination did not reveal any focal deficits. SKIN: No rashes. Assessment and plan Acute exacerbation of MS Hyponatremia Hyperkalemia Hypertension Monitor vital signs Monitor CBC Monitor CMP Continue neurochecks Continue IV Solu-Medrol Ordered MRI brain Ordered MRI cervical spine Hold lisinopril and Lasix as patient blood pressures normotensive Continue Protonix for GI prophylaxis Continue Neurontin Continue calcium and vitamin supplementation patient states that she is unable to undergo MRI as she is claustrophobic, open to doing open MRI outpatient. Neurology following, their recommendations noted from 07/17 Labs and medication were reviewed.. Continue same treatment. Continue with symptomatic treatment. Resume home medication. Monitor labs and vitals. DVT and GI prophylaxis. Further recommendations as per clinical course of the patient Dictation was produced using [employer] dictation software. please excuse any grammatical, word or spelling errors. Objective - Vital Signs Vital signs: Vital Signs Temp 97.8 F 07/18/24 12:21 Pulse 81 07/18/24 12:21 Resp 16 07/18/24 12:21 BP 105/67 07/18/24 12:21 Pulse Ox 98 07/18/24 12:21 FiO2 Intake & Output 07/17/24 07/18/24 07/18/24 18:59 06:59 18:59 Intake Total 120 Balance 120 Weight 70.307 kg Intake: Oral 120 Other: Voiding Method Toilet Toilet # Voids 1 - Labs CBC & Chem 7: 07/18/24 03:57 07/18/24 03:57 Labs: Abnormal Lab Results - Last 24 Hours (Table) 07/18/24 07/18/24 07/18/24 Range/Units 03:57 03:57 12:24 WBC 10.76 H (4.50-10.00) X 10*3/uL Plt Count 443 H (140-440) X 10*3/uL MPV 9.3 L (9.5-12.2) FL Immature Gran # 0.08 H (0.00-0.04) X 10*3/uL Neutrophils # 9.47 H (1.80-7.70) X 10*3/uL Lymphocytes # 0.83 L (0.90-5.00) X 10*3/uL Eosinophils # 0 L (0.04-0.35) X 10*3/uL Sodium 134 L (135-145) mmol/L Carbon Dioxide 21.0 L (21.6-31.8) mmol/L BUN/Creatinine Ratio 25.67 H (12.00-20.00) Ratio Glucose 141 H (70-110) mg/dL POC Glucose (mg/dL) 140 H (70-110) mg/dL Total Protein 5.9 L (6.2-8.2) g/dL
--- NOTE | 2024-07-18 14:24 | P.PN ---
Subjective Progress Note Date: 07/18/24 I am following-up with the patient and she feels her burning pain and eyes pain are improved with pain medication but otherwise the same. Denies any new neurological issues. She is refusing to perform MRI as inpatient and wants it addressed by outpatient neurologist. She states she thinks last MRI was 4-5 years ago. She continues to be getting IV steroids. Also is getting Gabapentin, Baclofen, Toradol Objective - Vital Signs Vital signs: Vital Signs Temp 97.8 F 07/18/24 12:21 Pulse 81 07/18/24 12:21 Resp 16 07/18/24 12:21 BP 105/67 07/18/24 12:21 Pulse Ox 98 07/18/24 12:21 FiO2 Intake & Output 07/17/24 07/18/24 07/18/24 18:59 06:59 18:59 Intake Total 120 Balance 120 Weight 70.307 kg Intake: Oral 120 Other: Voiding Method Toilet Toilet # Voids 1 - Exam General: Lying in bed and appears in mild acute distress. Neuro: The patient is awake, alert, oriented to self, place and time. Is following simple commands. No aphasia or neglect. Pupils are round, and limitation with light reflex since was squinting in pain but appears reactive. Visual ramirez are full to confrontation. EOM is mildly limited because of pain but appears no nystamgus in all direction. Decrease sensation to touch on the left to touch. No facial weakness. Hearing is normal to hand rub bilaterally. Tongue is midline and moves side to side without difficulty. No dysarthria. Motor: Strength is uppers are 5/5 throughout. Right lower extremity is 5/5. left lower is limited and had ?jerking of the left lower extremity with extension that was non-sustained and unsure if has some functional component. Senastion: Decrease to touch on the left. Cerebellar: Normal finger to nose bilaterally. Reflex: Patellar are 3+ bilaterally. Otherwise 2+ Plantars: Mute bilaterally Some of the work-up during this hospital visit consisted of: I reviewed the lab work-up. CT head: No acute intracranial process. I personally reviewed and agree with report. - Labs CBC & Chem 7: 07/18/24 03:57 07/18/24 03:57 Labs: Abnormal Lab Results - Last 24 Hours (Table) 07/18/24 07/18/24 07/18/24 Range/Units 03:57 03:57 12:24 WBC 10.76 H (4.50-10.00) X 10*3/uL Plt Count 443 H (140-440) X 10*3/uL MPV 9.3 L (9.5-12.2) FL Immature Gran # 0.08 H (0.00-0.04) X 10*3/uL Neutrophils # 9.47 H (1.80-7.70) X 10*3/uL Lymphocytes # 0.83 L (0.90-5.00) X 10*3/uL Eosinophils # 0 L (0.04-0.35) X 10*3/uL Sodium 134 L (135-145) mmol/L Carbon Dioxide 21.0 L (21.6-31.8) mmol/L BUN/Creatinine Ratio 25.67 H (12.00-20.00) Ratio Glucose 141 H (70-110) mg/dL POC Glucose (mg/dL) 140 H (70-110) mg/dL Total Protein 5.9 L (6.2-8.2) g/dL Assessment and Plan Assessment: This is a 44 y/o woman with history of Multiple Sclerosis (MS) who stopped disease modifying therapy on her own about 3 years ago who presents because of spams, pain, , burning sensation of extremities/back and eye pain for the past 10 days. Possible MS exacerbation. Cannot rule out functional or pain seeking. She is getting Gabapentin, Toradol, Steroid, Oxycodone and Is on IV Steroids. She is refusing to proceed with MRI Brain/Cervical spine. History of MS who stopped disease modifying therapy on her own about 3 years ago (was on [place]) Hypertension Plan: Patient wants MRI's to be addressed by her outpatient neurologist and states her last MRI was 4-5 years ago. Tomorrow she will get last dose of IV steroids (tomorrow is day #3) PT and OT are consulted. Will defer the rest of medical management to primary team. Please avoid giving too much pain medications Upon discharge, patient will attempt to follow-up with Dr. Lao's team for MS management. The plan is discussed with patient and primary attending. Time with Patient: Less than 30
[2024-07-18 17:22] LABS: Glucose,Whole Blood 121 mg/dL (70-110)
[2024-07-18 20:33] LABS: Glucose,Whole Blood 126 mg/dL (70-110)
[2024-07-19 07:37] LABS: Glucose,Whole Blood 127 mg/dL (70-110)
[2024-07-19] MEDS: methylPREDNISolone SOD SUCCIN 500 MG in SODIUM CHLORIDE 0.9% 100 ML IVPB STA (11:04)
--- NOTE | 2024-07-19 12:09 | P.DS ---
Providers Date of admission: 07/16/24 21:08 Expected date of discharge: 07/19/24 Attending physician: Megan Pardo Consults: 07/16/24 21:08 Consult Physician Routine Consulting Provider: Feliberto Jung Consult Reason/Comments: MS Do you want consulting provider notified?: Yes Primary care physician: Kacie [facility] Course: Discharge diagnoses; Acute exacerbation of MS Hyponatremia Hyperkalemia Hypertension Hospital course; patient is a 44-year-old lady with past medical history significant for MS presents the ER because of left arm and left leg weakness for a week. Patient stated that she was all right 2 weeks back when she started noticing burning pain in her lower extremities, she also noticed that she was having spasm of her left upper extremity which was very painful. This was followed by numbness and tingling in her left upper and lower extremity. Yesterday she woke up noticing pain behind her left eye. Patient also complains of dizziness at the time. Patient's symptoms are similar to her exacerbation of MS. Patient last flareup was 5 years back. Because of these symptoms, patient came to the ER Initial lab work done in the ER showed CBC 10.61, hemoglobin 14.9, platelet count 256, sodium 133, potassium 5.5, BUN 13, creatinine 0.49, AST 36, ALT 41, albumin 4.7 CT head done showed no acute intracranial process Patient admitted to internal medicine service 07/18. Patient seen examined. States numbness of left upper extremity and left lower face has improved. Still complaining of muscle spasms. Still has numbness of left lower extremity. Patient was unable to get MRI brain and cervical spine as she was claustrophobic, wants it to be get done outpatient. Neurology evaluated patient, currently on IV Solu-Medrol, neurology recommends 3 days of IV steroids. 07/19. Patient seen and examined. Patient completed course of high-dose steroids, discussed with neurology, at this time do not recommend any tapering dose of steroids, wants patient to follow-up outpatient neurology and to get MRI brain done. PHYSICAL EXAMINATION: GENERAL: The patient is alert and oriented x3, not in any acute distress. Well developed, well nourished. HEENT: Pupils are round and equally reacting to light. EOMI. No scleral icterus. No conjunctival pallor. Normocephalic, atraumatic. No pharyngeal erythema. No thyromegaly. CARDIOVASCULAR: S1 and S2 present. No murmurs, rubs, or gallops. PULMONARY: Chest is clear to auscultation, no wheezing or crackles. ABDOMEN: Soft, nontender, nondistended, normoactive bowel sounds. No palpable organomegaly. MUSCULOSKELETAL: No joint swelling or deformity. EXTREMITIES: No cyanosis, clubbing, or pedal edema. NEUROLOGICAL: Gross neurological examination did not reveal any focal deficits. SKIN: No rashes. Dictation was produced using [employer] dictation software. please excuse any grammatical, word or spelling errors. Patient Condition at Discharge: Fair Plan - Discharge Summary Discharge Rx Participant: No New Discharge Prescriptions: New Gabapentin [Neurontin] 100 mg PO BID 30 Days #60 cap Continue lisinopriL [Zestril] 40 mg PO DAILY busPIRone HCL 5 mg PO DAILY Baclofen 10 mg PO TID PRN 10 Days #30 tab PRN Reason: Muscle Spasm Furosemide [Lasix] 20 mg PO DAILY Discharge Medication List Furosemide [Lasix] 20 mg PO DAILY 01/26/24 [History] busPIRone HCL 5 mg PO DAILY 02/16/24 [History] lisinopriL [Zestril] 40 mg PO DAILY 02/16/24 [History] Baclofen 10 mg PO TID PRN 10 Days #30 tab 07/19/24 [Rx] Gabapentin [Neurontin] 100 mg PO BID 30 Days #60 cap 07/19/24 [Rx] Follow up Appointment(s)/Referral(s): Kacie Matthews MD [Primary Care Provider] - 1-2 days Discharge Disposition: HOME SELF-CARE
[2024-07-19 12:22] LABS: Glucose,Whole Blood 128 mg/dL (70-110)
[2024-07-19 12:35] VITALS: BP 118/75; PULSE 61; RESP 16; TEMP 98
== END 2024-07-19 13:23 | disposition home or self-care (01) | DRG 59 ==
LOC: EC 20:02 → 5NMEDONC 21:08
PROVIDERS: ADMIT Hospitalist; ATTEND Hospitalist
DX: G35 Multiple sclerosis (principal); E87.1 Hypo-osmolality and hyponatremia; I10 Essential (primary) hypertension; E87.5 Hyperkalemia; Z79.899 Other long term (current) drug therapy
CPT/HCPCS: 70450; 80053; 83735; 84100; 85025; 93005; 94760; 96365; 96366; 99285